=== PATIENT | male | born 1935 | race Caucasian/White ===

== ENCOUNTER 2020-03-29 11:02 | Outpatient (REF) | payer MEDICARE, SELFPAY ==
[2020-03-29 13:47] LABS: MANUAL DIFF FLAG NO
[2020-03-29 14:00] LABS: Basophils Percent Auto 0.5 % (0-2); Eosinophils Absolute Auto 0.1 X10*3/uL (0.0-0.4); Eosinophils Percent Auto 1.4 % (0-4); Hematocrit 37.4 % (42-52); Hemoglobin 12.3 g/dl (14.0-18.0); Imm Gran Abs Auto 0.03 X10*3/uL (0.00-0.03); Imm Gran Pct Auto 0.3 % (0.0-0.4); Mean Corpuscular HGB Conc 32.9 g/dl (31.0-36.0); Mean Corpuscular Hemoglobin 30.6 pg (27.0-33.0); Mean Platelet Volume 10.9 fL (9.4-12.4); Monocytes Absolute Auto 0.7 X10*3/uL (0.1-1.2); Monocytes Percent Auto 7.6 % (2-11); Neutrophils Absolute Auto 6.8 X10*3/uL (2.0-8.3); Neutrophils Percent Auto 78.2 % (45-73); Platelet Count 294 X10*3/uL (160-400); Red Blood Count 4.02 X10*6/uL (4.60-5.80); Red Cell Distribution Width 13.9 % (11.0-16.0); White Blood Count 8.7 X10*3/uL (4.8-10.8)
[2020-03-29 14:15] LABS: Alanine Aminotransferase 10 U/L (0-40); Albumin Level 3.8 g/dL (3.5-5.0); Alkaline Phosphatase 69 U/L (39-117); Anion Gap 12 (12-20); Aspartate Amino Transferase 19 U/L (5-37); Bilirubin Total 0.4 mg/dL (0.0-1.0); Blood Urea Nitrogen 25 mg/dL (9-16); Calcium 8.8 mg/dL (8.4-10.2); Carbon Dioxide 29 mmol/L (22-29); Chloride 101 mmol/L (96-108); Estimated Glomerular Filt Rate 45; Glucose Random 102 mg/dL (60-115); Potassium 4.1 mmol/l (3.3-5.1); Sodium 138 mmol/L (135-145); Total Protein 6.2 g/dL (6.5-8.0)
[2020-03-29 14:19] LABS: INTERNATIONAL NORM RATIO 2.2 (0.9-1.1); Prothrombin Time 25.8 SEC (10.8-13.0)
== END 2020-03-29 11:03 | disposition home or self-care (01) ==
LOC: HO.10HDL 11:02
PROVIDERS: Visit Provider Internal Medicine
DX: J44.9 Chronic obstructive pulmonary disease, unspecified (principal); I50.9 Heart failure, unspecified; N18.9 Chronic kidney disease, unspecified; D63.1 Anemia in chronic kidney disease; I48.0 Paroxysmal atrial fibrillation
CPT/HCPCS: 36415; 80053; 85025; 85610

== ENCOUNTER 2020-04-20 15:09 | Outpatient (REF) | payer MEDICARE, SELFPAY | END 2020-04-20 15:10 | disposition home or self-care (01) | LOC: HO.LNP 15:09 | PROVIDERS: Visit Provider Internal Medicine | DX: Z20.828 Contact with and (suspected) exposure to other viral communicable diseases (principal) | CPT/HCPCS: U0003 ==

== ENCOUNTER 2020-05-10 10:50 | Outpatient (REF) | payer MEDICARE, SELFPAY ==
[2020-05-10 14:10] LABS: INTERNATIONAL NORM RATIO 2.8 (0.9-1.1); Prothrombin Time 33.4 SEC (10.8-13.0)
[2020-05-10 14:34] LABS: Alanine Aminotransferase 9 U/L (0-40); Albumin Level 3.7 g/dL (3.5-5.0); Alkaline Phosphatase 70 U/L (39-117); Anion Gap 11 (12-20); Aspartate Amino Transferase 17 U/L (5-37); Bilirubin Total 0.6 mg/dL (0.0-1.0); Blood Urea Nitrogen 37 mg/dL (9-16); Calcium 8.4 mg/dL (8.4-10.2); Carbon Dioxide 29 mmol/L (22-29); Chloride 102 mmol/L (96-108); Estimated Glomerular Filt Rate 43; Glucose Random 118 mg/dL (60-115); Potassium 3.5 mmol/l (3.3-5.1); Sodium 138 mmol/L (135-145); Total Protein 6.4 g/dL (6.5-8.0)
== END 2020-05-10 10:51 | disposition home or self-care (01) ==
LOC: HO.10HDL 10:50
PROVIDERS: Visit Provider Internal Medicine
DX: J44.9 Chronic obstructive pulmonary disease, unspecified (principal); N18.9 Chronic kidney disease, unspecified; I50.9 Heart failure, unspecified
CPT/HCPCS: 36415; 80053; 85610

== ENCOUNTER → 2020-07-16 12:18 | Outpatient (BNVA) | payer MEDICARE, SELFPAY | PROVIDERS: PCP Internal Medicine; Visit Provider Internal Medicine | DX: I42.8 Other cardiomyopathies (principal); I48.0 Paroxysmal atrial fibrillation; I35.0 Nonrheumatic aortic (valve) stenosis; I10 Essential (primary) hypertension; I44.7 Left bundle-branch block, unspecified | CPT/HCPCS: 93005; 99212 ==

== ENCOUNTER 2020-08-30 11:05 | Outpatient (REF) | payer MEDICARE, SELFPAY ==
[2020-08-30 13:49] LABS: MANUAL DIFF FLAG NO
[2020-08-30 13:52] LABS: Basophils Percent Auto 0.4 % (0-2); Eosinophils Absolute Auto 0.2 X10*3/uL (0.0-0.4); Eosinophils Percent Auto 1.7 % (0-4); Hematocrit 37.3 % (42-52); Imm Gran Abs Auto 0.04 X10*3/uL (0.00-0.03); Imm Gran Pct Auto 0.4 % (0.0-0.4); Lymphocytes Absolute Auto 0.8 X10*3/uL (1.2-4.9); Lymphocytes Percent Auto 9.3 % (20-40); Mean Corpuscular HGB Conc 32.2 g/dl (31.0-36.0); Mean Corpuscular Hemoglobin 29.7 pg (27.0-33.0); Mean Corpuscular Volume 92.3 fL (80-98); Mean Platelet Volume 10.8 fL (9.4-12.4); Monocytes Absolute Auto 0.8 X10*3/uL (0.1-1.2); Monocytes Percent Auto 8.5 % (2-11); Neutrophils Absolute Auto 7.2 X10*3/uL (2.0-8.3); Neutrophils Percent Auto 79.7 % (45-73); Platelet Count 238 X10*3/uL (160-400); Red Blood Count 4.04 X10*6/uL (4.60-5.80); Red Cell Distribution Width 14.7 % (11.0-16.0)
[2020-08-30 13:56] LABS: INTERNATIONAL NORM RATIO 2.3 (0.9-1.1); Prothrombin Time 27.6 SEC (10.8-13.0)
[2020-08-30 14:24] LABS: Alanine Aminotransferase 12 U/L (0-40); Alkaline Phosphatase 81 U/L (39-117); Anion Gap 15 (12-20); Aspartate Amino Transferase 21 U/L (5-37); Bilirubin Total 0.5 mg/dL (0.0-1.0); Blood Urea Nitrogen 31 mg/dL (9-16); Calcium 8.5 mg/dL (8.4-10.2); Carbon Dioxide 28 mmol/L (22-29); Chloride 102 mmol/L (96-108); Estimated Glomerular Filt Rate 47; Glucose Random 82 mg/dL (60-115); Potassium 4.2 mmol/L (3.3-5.1); Sodium 141 mmol/L (135-145); Total Protein 6.6 g/dL (6.5-8.0)
[2020-08-30 14:45] LABS: Free T4 (Free Thyroxine) 1.13 ng/dL (0.71-1.85); Thyroid Stimulating Hormone 2.51 uIU/mL (0.32-4.0)
== END 2020-08-30 11:06 | disposition home or self-care (01) ==
LOC: HO.10HDL 11:05
PROVIDERS: Visit Provider Internal Medicine
DX: J44.9 Chronic obstructive pulmonary disease, unspecified (principal); E03.9 Hypothyroidism, unspecified; I48.0 Paroxysmal atrial fibrillation; N18.9 Chronic kidney disease, unspecified; I50.9 Heart failure, unspecified
CPT/HCPCS: 36415; 80053; 84439; 84443; 85025; 85610

== ENCOUNTER 2020-11-30 10:49 | Outpatient (REF) | payer MEDICARE, SELFPAY ==
[2020-11-30 14:00] LABS: MANUAL DIFF FLAG NO
[2020-11-30 14:17] LABS: Basophils Absolute Auto 0.1 X10*3/uL (0.0-0.2); Basophils Percent Auto 0.6 % (0-2); Eosinophils Absolute Auto 0.2 X10*3/uL (0.0-0.4); Eosinophils Percent Auto 2.7 % (0-4); Hematocrit 39.1 % (42-52); Hemoglobin 12.5 g/dl (14.0-18.0); Imm Gran Abs Auto 0.03 X10*3/uL (0.00-0.03); Imm Gran Pct Auto 0.4 % (0.0-0.4); Lymphocytes Absolute Auto 0.9 X10*3/uL (1.2-4.9); Lymphocytes Percent Auto 11.3 % (20-40); Mean Corpuscular Hemoglobin 28.7 pg (27.0-33.0); Mean Corpuscular Volume 89.7 fL (80-98); Mean Platelet Volume 11.1 fL (9.4-12.4); Monocytes Absolute Auto 0.7 X10*3/uL (0.1-1.2); Platelet Count 263 X10*3/uL (160-400); Red Blood Count 4.36 X10*6/uL (4.60-5.80); Red Cell Distribution Width 14.4 % (11.0-16.0); White Blood Count 7.9 X10*3/uL (4.8-10.8)
[2020-11-30 14:19] LABS: INTERNATIONAL NORM RATIO 2.6 (0.9-1.1); Prothrombin Time 31.2 SEC (10.8-13.0)
[2020-11-30 14:43] LABS: Alanine Aminotransferase 9 U/L (0-40); Alkaline Phosphatase 87 U/L (39-117); Anion Gap 14 (12-20); Aspartate Amino Transferase 20 U/L (5-37); Bilirubin Total 0.3 mg/dL (0.0-1.0); Blood Urea Nitrogen 25 mg/dL (9-16); Calcium 8.9 mg/dL (8.4-10.2); Carbon Dioxide 27 mmol/L (22-29); Chloride 102 mmol/L (96-108); Estimated Glomerular Filt Rate 49; Glucose Random 104 mg/dL (60-115); Iron 32 mcg/dL (45-160); Percent Iron Saturation 9 % (15-50); Potassium 3.9 mmol/L (3.3-5.1); Sodium 139 mmol/L (135-145); Total Iron Binding Capacity 361 mcg/dL (228-428); Total Protein 6.7 g/dL (6.5-8.0); Unsaturated Iron Binding 329 ug/dL
== END 2020-11-30 10:50 | disposition home or self-care (01) ==
LOC: HO.HMGCLDS 10:49
PROVIDERS: PCP Internal Medicine; Visit Provider Internal Medicine
DX: J44.9 Chronic obstructive pulmonary disease, unspecified (principal); I50.9 Heart failure, unspecified; N18.9 Chronic kidney disease, unspecified; I48.0 Paroxysmal atrial fibrillation; D64.9 Anemia, unspecified
CPT/HCPCS: 36415; 80053; 83540; 85025; 85610

== ENCOUNTER → 2021-01-07 10:16 | Outpatient (REF) | payer MEDICARE, SELFPAY ==
--- NOTE | 2021-01-07 10:20 | CA_ITS ---
Transthoracic Echocardiogram Patient (Last, First, Middle): Antoine Hernandez L Gender: Male Date of : 1935 Age: 85 Procedure Date: 01/07/2021 Procedure Type: Transthoracic Echocardiogram Location: OP Height: 172.72 cm Weight: 68.95 kg BSA: 1.82 m2 Heart Rate: bpm BP: 122 / 68 [address] Research Engineer: Referring MD: Kleber Green MD Symptoms: I42.8 - Other cardiomyopathies Study Quality: Technically Difficult ECG Rhythm: Atrial Fibrillation Conclusions: - LVEF difficult to assess. Possibly 45-50%. - There is mildly decreased right ventricular systolic function. - Likely no more than [id number] aortic stenosis Findings Left Ventricle Normal left ventricular cavity size. There is mildly increased left ventricular wall thickness. Regional wall motion abnormalities can not be excluded due to suboptimal endocardial definition. E/E prime ratio is >15, consistent with elevated filling pressures. Evidence suggests grade I (mild) diastolic dysfunction. LVEF difficult to assess. Possibly 45-50%. Right Ventricle The right ventricle was not well visualized. Normal right ventricular cavity size. There is mildly decreased right ventricular systolic function. Atria The left atrium is normal in size. The right atrium is normal in size. Aortic Valve The aortic valve was not well visualized. The peak aortic velocity is 1.84 m/s with a calculated peak gradient of 14 mmHg. The mean gradient is 8 mmHg. The aortic valve area is 1.04 cm2. There is trace (trivial) aortic valve regurgitation. Discrepancy between gradients and valve area. Likely no more than [id number] aortic stenosis Mitral Valve There is mild mitral annular calcification. There is trace mitral valve regurgitation. There is no mitral valve stenosis. Pulmonic Valve The pulmonic valve was not well visualized. Tricuspid Valve Normal tricuspid valve structure. There is mild tricuspid valve regurgitation. The pulmonary artery systolic pressure is normal. Great Vessels The aortic annulus is normal in size. Venous The inferior vena cava is normal in size and collapses greater than 50% with inspiration. Pericardium/Pleural There is no evidence of pericardial effusion. Prior Study Comparison Changes noted compared to prior study dated: 11/14/2019. Possible improvement in LVEF, but due to study quality, difficult to compare. Measurements 2D Linear Measurements IVSd: 1.04 0.6-0.9/0.6-1.0 cm LVIDd: 4.43 3.9-5.3/4.2-5.9 cm LVIDd Index: 2.43 2.4-3.2/2.2-3.1 cm/m2 LVIDs: 3.25 2.0-3.6 cm LVPWd: 1.06 0.7-1.1 cm Ao Root: 3.30 2.1-3.5 cm LA Diam: 3.80 2.7-3.8/3.0-4.0 cm LAIDs Index: 2.09 1.5-2.3 cm/m2 LV Mass: 199.17 67-162/88-224 g LV Mass Index: 109.43 43-95/49-115 g/m2 LVOT Diam: 2.10 3.0+(-)1.3 cm Mitral Valve MV Pk E: 0.61 MV PK A: 0.81 MV Decel Time: 160.00 E/A: 0.80 E'Lateral: 4.24 E'Medial: 4.03 E/E' Med: 15.10 E/E' Lat: 14.30 PHT: 47.00 MVA PHT: 4.68 Decel Kay: 3.81 Aortic Valve AoV Pk Joseph: 1.84 AoV Mn Joseph: 1.38 AoV VTI: 0.39 AoV Pk Grad: 14.00 Aov Mn Grad: 8.00 JOSEPHINE Cont.VTI: 1.04 LVOT LVOT Pk Joseph: 0.57 LVOT Mn Joseph: 0.41 LVOT VTI: 0.12 LVOT Pk Grad: 1.00 LVOT Mn Grad: 1.00 LVOT Diam: 2.10 LVOT Area: 3.46 Diastolic Function MV Pk E: 0.61 MV Pk A: 0.81 E/A: 0.80 E'Medial: 4.03 E/E' Med: 15.10 E' Laterial: 4.24 E/E' Lat: 14.30 Right Ventricle TAPSE (mm): 1.70 TVS' Joseph: 10.80 Tricuspid Valve TR Pk Joseph: 2.68 TR Pk Grad: 29.00 RA Press: 3.00 RVSP: 32.00 Great Vessels Aorta Ao Root-2D: 3.30 2.0-3.7 cm Pulmonary Valve PV Pk Joseph: 0.91 Peak PV Grad: 3.00 Updated in Other Vendor System with Status of Final Kleber Green MD electronically signed on 01/07/2021 12:46:41 PM with status of Final
== END ==
LOC: HO.CARD 10:16
PROVIDERS: PCP Internal Medicine; Visit Provider Internal Medicine
DX: I42.8 Other cardiomyopathies (principal)
CPT/HCPCS: 93306

== ENCOUNTER → 2021-01-14 12:40 | Outpatient (BNVA) | payer MEDICARE, SELFPAY | PROVIDERS: PCP Internal Medicine; Referring Provider Internal Medicine; Visit Provider Internal Medicine | DX: I42.8 Other cardiomyopathies (principal); I48.0 Paroxysmal atrial fibrillation; I35.0 Nonrheumatic aortic (valve) stenosis; I44.7 Left bundle-branch block, unspecified; I10 Essential (primary) hypertension | CPT/HCPCS: 93005; 99212 ==

== ENCOUNTER 2021-01-17 14:17 | Outpatient (REF) | payer MEDICARE, SELFPAY ==
--- NOTE | ~2021-01-17 | CT_ITS ---
EXAMINATION: CT CHEST WITHOUT CONTRAST CLINICAL INFORMATION: Interstitial pulmonary disease. COMPARISON: Multiple priors, most recent CT chest dated 08/11/2019. TECHNIQUE: Multidetector volumetric CT imaging of the chest was done. Axial MIP volume rendering provided. Sagittal and coronal reformatted images were obtained. This CT examination was performed using dose optimization techniques as appropriate, variously including the following: *Automated exposure control *Adjustment of mA and/or kV according to patient size (this includes techniques or standardized protocols for targeted exams where dose is matched to indication/reason for exam; i.e. extremities or head) *Use of iterative reconstruction technique DLP: 134 mGy-cm FINDINGS: TEXTILE WORKER: Unremarkable. LUNGS: Emphysematous changes are redemonstrated. Significant interval decrease in previously seen diffuse interstitial prominence and bronchial wall thickening when compared to the prior examination. Redemonstration of an anterior right upper lobe calcified granuloma, unchanged. Calcified subpleural nodule within the anterior left upper lobe. No new noncalcified pulmonary nodule, mass, or confluent airspace consolidation. The central airways are patent. MEDIASTINUM: No cardiomegaly. Previously seen pericardial effusion has nearly completely resolved. No aortic dilatation. Scattered atherosclerotic calcifications. No superior mediastinal or hilar lymphadenopathy. PLEURA: There is no pleural effusion. No pleural mass or thickening. AXILLA: No lymphadenopathy. UPPER ABDOMEN: Unremarkable. OSSEOUS STRUCTURES: Unremarkable. CT/CT chest wo con IMPRESSION: 1. Stable emphysematous changes with significant interval decrease and near-complete resolution of previously seen diffuse interstitial prominence and bronchial wall thickening. 2. No new pulmonary nodule, mass, or airspace consolidation. 3. No lymphadenopathy.
== END 2021-01-17 14:18 | disposition home or self-care (01) ==
LOC: HO.CT 14:17
PROVIDERS: PCP Internal Medicine; Visit Provider Internal Medicine
DX: J84.9 Interstitial pulmonary disease, unspecified (principal); J98.4 Other disorders of lung; T46.2X5A Adverse effect of other antidysrhythmic drugs, initial encounter
CPT/HCPCS: 71250

== ENCOUNTER → 2021-01-23 13:21 | Outpatient (BNVA) | payer MEDICARE, SELFPAY | PROVIDERS: PCP Internal Medicine; Visit Provider Internal Medicine | DX: J44.9 Chronic obstructive pulmonary disease, unspecified (principal); I10 Essential (primary) hypertension; I44.7 Left bundle-branch block, unspecified; I42.8 Other cardiomyopathies; I35.0 Nonrheumatic aortic (valve) stenosis; I48.0 Paroxysmal atrial fibrillation; Z79.899 Other long term (current) drug therapy | CPT/HCPCS: 99212 ==

== ENCOUNTER 2021-02-20 11:26 | Outpatient (REF) | payer MEDICARE, SELFPAY ==
[2021-02-20 13:34] LABS: MANUAL DIFF FLAG NO
[2021-02-20 14:05] LABS: Basophils Absolute Auto 0.1 X10*3/uL (0.0-0.2); Basophils Percent Auto 0.7 % (0-2); Eosinophils Absolute Auto 0.2 X10*3/uL (0.0-0.4); Eosinophils Percent Auto 2.1 % (0-4); Hematocrit 37.9 % (42-52); Hemoglobin 12.3 g/dl (14.0-18.0); Imm Gran Abs Auto 0.03 X10*3/uL (0.00-0.03); Imm Gran Pct Auto 0.3 % (0.0-0.4); Lymphocytes Absolute Auto 0.8 X10*3/uL (1.2-4.9); Lymphocytes Percent Auto 9.2 % (20-40); Mean Corpuscular HGB Conc 32.5 g/dl (31.0-36.0); Mean Corpuscular Hemoglobin 28.9 pg (27.0-33.0); Mean Platelet Volume 10.4 fL (9.4-12.4); Monocytes Absolute Auto 0.9 X10*3/uL (0.1-1.2); Monocytes Percent Auto 9.7 % (2-11); Neutrophils Absolute Auto 7.1 X10*3/uL (2.0-8.3); Platelet Count 217 X10*3/uL (160-400); Red Blood Count 4.26 X10*6/uL (4.60-5.80); Red Cell Distribution Width 15.7 % (11.0-16.0)
[2021-02-20 14:09] LABS: INTERNATIONAL NORM RATIO 2.1 (0.9-1.1); Prothrombin Time 23.7 SEC (9.9-13.0)
[2021-02-20 14:45] LABS: Alanine Aminotransferase 13 U/L (0-40); Alkaline Phosphatase 70 U/L (39-117); Anion Gap 11 (12-20); Aspartate Amino Transferase 22 U/L (5-37); Bilirubin Total 0.7 mg/dL (0.0-1.0); Blood Urea Nitrogen 23 mg/dL (9-16); Calcium 8.8 mg/dL (8.4-10.2); Carbon Dioxide 29 mmol/L (22-29); Chloride 98 mmol/L (96-108); Estimated Glomerular Filt Rate 50; Glucose Random 77 mg/dL (60-115); Potassium 4.4 mmol/L (3.3-5.1); Sodium 134 mmol/L (135-145); Total Protein 6.6 g/dL (6.5-8.0)
[2021-02-20 14:46] LABS: Free T4 (Free Thyroxine) 1.27 ng/dL (0.71-1.85); Thyroid Stimulating Hormone 2.45 uIU/mL (0.32-4.0)
== END 2021-02-20 11:27 | disposition home or self-care (01) ==
LOC: HO.10HDL 11:26
PROVIDERS: Visit Provider Internal Medicine
DX: I50.9 Heart failure, unspecified (principal); J44.9 Chronic obstructive pulmonary disease, unspecified; I25.10 Atherosclerotic heart disease of native coronary artery without angina pectoris; N18.9 Chronic kidney disease, unspecified; E78.5 Hyperlipidemia, unspecified; I48.0 Paroxysmal atrial fibrillation
CPT/HCPCS: 36415; 80053; 84439; 84443; 85025; 85610

== ENCOUNTER 2021-05-22 12:29 | Outpatient (REF) | payer MEDICARE, SELFPAY ==
[2021-05-22 13:52] LABS: MANUAL DIFF FLAG NO
[2021-05-22 14:02] LABS: Basophils Absolute Auto 0.1 X10*3/uL (0.0-0.2); Basophils Percent Auto 0.6 % (0-2); Eosinophils Absolute Auto 0.1 X10*3/uL (0.0-0.4); Eosinophils Percent Auto 1.8 % (0-4); Hematocrit 39.5 % (42.0-52.0); Hemoglobin 12.6 g/dl (14.0-18.0); Imm Gran Abs Auto 0.03 X10*3/uL (0.00-0.03); Imm Gran Pct Auto 0.4 % (0.0-0.4); Lymphocytes Absolute Auto 0.8 X10*3/uL (1.2-4.9); Lymphocytes Percent Auto 9.9 % (20-40); Mean Corpuscular HGB Conc 31.9 g/dl (31.0-36.0); Mean Corpuscular Volume 90.8 fL (80.0-98.0); Mean Platelet Volume 10.9 fL (9.4-12.4); Monocytes Absolute Auto 0.7 X10*3/uL (0.1-1.2); Monocytes Percent Auto 8.8 % (2-11); Neutrophils Absolute Auto 6.2 x10*3/uL (2.0-8.3); Neutrophils Percent Auto 78.5 % (45-73); Platelet Count 208 X10*3/uL (160-400); Red Blood Count 4.35 X10*6/uL (4.60-5.80); Red Cell Distribution Width 14.6 % (11.0-16.0); White Blood Count 7.9 X10*3/uL (4.8-10.8)
[2021-05-22 14:12] LABS: INTERNATIONAL NORM RATIO 2.2 (0.9-1.1); Prothrombin Time 25.9 SEC (9.9-13.0)
[2021-05-22 14:27] LABS: Alanine Aminotransferase 10 U/L (0-40); Alkaline Phosphatase 71 U/L (39-117); Anion Gap 12 (12-20); Aspartate Amino Transferase 20 U/L (5-37); Bilirubin Total 0.4 mg/dL (0.0-1.0); Blood Urea Nitrogen 28 mg/dL (9-16); Calcium 9.1 mg/dL (8.4-10.2); Carbon Dioxide 30 mmol/L (22-29); Chloride 102 mmol/L (96-108); Estimated Glomerular Filt Rate 46; Glucose Random 75 mg/dL (60-115); Potassium 4.6 mmol/L (3.3-5.1); Sodium 139 mmol/L (135-145); Total Protein 6.7 g/dL (6.5-8.0)
== END 2021-05-22 12:30 | disposition home or self-care (01) ==
LOC: HO.10HDL 12:29
PROVIDERS: Visit Provider Internal Medicine
DX: J44.9 Chronic obstructive pulmonary disease, unspecified (principal); I50.9 Heart failure, unspecified; N18.9 Chronic kidney disease, unspecified; I48.0 Paroxysmal atrial fibrillation; Z79.01 Long term (current) use of anticoagulants
CPT/HCPCS: 36415; 80053; 85025; 85610

== ENCOUNTER → 2021-07-23 12:25 | Outpatient (BNVA) | payer MEDICARE, SELFPAY | PROVIDERS: PCP Internal Medicine; Referring Provider Internal Medicine; Visit Provider Internal Medicine | DX: I48.0 Paroxysmal atrial fibrillation (principal); I42.8 Other cardiomyopathies; I35.0 Nonrheumatic aortic (valve) stenosis; I10 Essential (primary) hypertension; I44.7 Left bundle-branch block, unspecified; Z79.01 Long term (current) use of anticoagulants; Z79.899 Other long term (current) drug therapy | CPT/HCPCS: 93005; 99212 ==

== ENCOUNTER → 2021-07-30 13:07 | Outpatient (BNVA) | payer MEDICARE, SELFPAY | PROVIDERS: PCP Internal Medicine; Visit Provider Internal Medicine | DX: J44.9 Chronic obstructive pulmonary disease, unspecified (principal) | CPT/HCPCS: 99212 ==

== ENCOUNTER 2021-08-20 10:42 | Outpatient (REF) | payer MEDICARE, SELFPAY ==
[2021-08-20 11:09] LABS: MANUAL DIFF FLAG NO
[2021-08-20 11:32] LABS: INTERNATIONAL NORM RATIO 1.9 (0.9-1.1)
[2021-08-20 11:36] LABS: Basophils Percent Auto 0.5 % (0-2); Eosinophils Absolute Auto 0.1 X10*3/uL (0.0-0.4); Eosinophils Percent Auto 1.7 % (0-4); Hematocrit 39.3 % (42.0-52.0); Hemoglobin 12.1 g/dl (14.0-18.0); Imm Gran Abs Auto 0.03 X10*3/uL (0.00-0.03); Imm Gran Pct Auto 0.4 % (0.0-0.4); Lymphocytes Absolute Auto 0.7 X10*3/uL (1.2-4.9); Lymphocytes Percent Auto 8.4 % (20-40); Mean Corpuscular HGB Conc 30.8 g/dl (31.0-36.0); Mean Corpuscular Hemoglobin 28.4 pg (27.0-33.0); Mean Corpuscular Volume 92.3 fL (80.0-98.0); Monocytes Absolute Auto 0.7 X10*3/uL (0.1-1.2); Monocytes Percent Auto 8.2 % (2-11); Neutrophils Absolute Auto 6.8 x10*3/uL (2.0-8.3); Neutrophils Percent Auto 80.8 % (45-73); Platelet Count 190 X10*3/uL (160-400); Red Blood Count 4.26 X10*6/uL (4.60-5.80); White Blood Count 8.4 X10*3/uL (4.8-10.8)
[2021-08-20 12:00] LABS: Alanine Aminotransferase 9 U/L (0-40); Albumin Level 3.8 g/dL (3.5-5.0); Alkaline Phosphatase 69 U/L (39-117); Anion Gap 11 (12-20); Aspartate Amino Transferase 18 U/L (5-37); Bilirubin Total 0.3 mg/dL (0.0-1.0); Blood Urea Nitrogen 30 mg/dL (9-16); Calcium 8.9 mg/dL (8.4-10.2); Carbon Dioxide 30 mmol/L (22-29); Chloride 100 mmol/L (96-108); Estimated Glomerular Filt Rate 47; Glucose Random 142 mg/dL (60-115); Iron 42 mcg/dL (45-160); Percent Iron Saturation 11 % (15-50); Potassium 4.1 mmol/L (3.3-5.1); Sodium 137 mmol/L (135-145); Total Iron Binding Capacity 384 mcg/dL (228-428); Total Protein 6.6 g/dL (6.5-8.0); Unsaturated Iron Binding 342 ug/dL
[2021-08-20 12:18] LABS: TSH reflex Free T4 1.71 uIU/mL (0.32-4.0)
== END 2021-08-20 10:43 | disposition home or self-care (01) ==
LOC: HO.LAB 10:42
PROVIDERS: Absent Provider Internal Medicine; PCP Internal Medicine; Visit Provider Internal Medicine
DX: I42.8 Other cardiomyopathies (principal); I48.0 Paroxysmal atrial fibrillation; D64.9 Anemia, unspecified; J44.9 Chronic obstructive pulmonary disease, unspecified; I50.9 Heart failure, unspecified; N18.9 Chronic kidney disease, unspecified
CPT/HCPCS: 36415; 80053; 83540; 84443; 85025; 85610

== ENCOUNTER 2021-09-19 11:13 | Inpatient (IN) | payer MEDICARE, SELFPAY ==
[2021-09-19] VITALS (8 sets, daily range): BP systolic 125–144; BP diastolic 60–70; PULSE 71–90; RESP 13–36; TEMP 36.2–37.2; O2SAT 87–95; BMI 23.1
--- NOTE | ~2021-09-19 | XR_ITS ---
EXAMINATION: XR CHEST CLINICAL INFORMATION: SOB, cough and difficulty breathing COMPARISON: CT chest 01/17/2021. TECHNIQUE: 2 views of the chest were obtained. FINDINGS: The lungs are well-expanded and clear of acute pneumonic process. There is increased bilateral interstitial markings in both lower lobes likely chronic changes. The heart size and pulmonary vascularity is normal. No gross bony abnormality seen. XR/XR chest 2V IMPRESSION: Mild increased bilateral interstitial markings especially lower lobes likely chronic changes. No acute pneumonic consolidation or pleural effusion seen. Previous CT chest reveals bilateral posterior pleural thickening and mild interstitial changes 01/17/2021.
--- NOTE | 2021-09-19 11:25 | ECG_ITS ---
Test Reason : SOB Blood Pressure : / mmHG Vent. Rate : 083 BPM Atrial Rate : 083 BPM P-R Int : 194 ms QRS Dur : 144 ms QT Int : 402 ms P-R-T Axes : -09 -63 061 degrees QTc Int : 472 ms Normal sinus rhythm Left axis deviation Left bundle branch block Abnormal ECG When compared with ECG of 11-AUG-2019 01:47, No significant changes seen Referred By: Yakelin Kiran Electronically Signed By:Kentrell Oropeza
--- NOTE | 2021-09-19 11:36 | ED_ITS ---
HPI - URI/Sore Throat General Chief Complaint: Upper Respiratory Symptoms Stated Complaint: short of breathe , high fever Time Seen by Provider: 09/19/21 11:21 Source: patient and family Mode of arrival: wheelchair Limitations: no limitations History of Present Illness HPI Narrative: 86 yo male with past medical history of COPD, LBBB, HTN, aortic valve stenosis, AFIB on coumadun, NICM here complaints of productive cough w/ yellow sputum, rhinorrhea x 1 week, worsening last 24 hrs with diff breathing, fever up to 101. Patient received Pfizer vaccine x3. Patient received flu vaccine. Patient denies chest pain, leg swelling or leg pain, vomiting, diarrhea. No sick contacts or recent travel. Related Data Home Medications Medication Instructions Recorded Confirmed allopurinol 300 mg tablet 300 mg PO DAILY 07/16/20 09/19/21 bumetanide 2 mg tablet 2 mg PO BID tab 07/16/20 09/19/21 ipratropium 0.5 mg-albuterol 3 mg 3 ml INHALATION QID PRN 07/16/20 09/19/21 (2.5 mg base)/3 mL nebulization soln levothyroxine 75 mcg tablet 75 mcg PO DAILY 07/16/20 09/19/21 mirtazapine 15 mg tablet 15 mg PO BEDTIME 07/16/20 09/19/21 potassium chloride 20 mEq 20 meq PO DAILY 07/16/20 09/19/21 tablet,extended release(part/cryst) simvastatin 40 mg tablet 40 mg PO BEDTIME 07/16/20 09/19/21 warfarin 2.5 mg tablet 2.5 mg PO BEDTIME 07/16/20 09/19/21 omeprazole 40 mg capsule,delayed 40 mg PO BID cap 01/23/21 09/19/21 release albuterol sulfate 2.5 mg INHALATION Q6H PRN 09/19/21 09/19/21 amiodarone 100 mg tablet 1 tab PO DAILY 09/19/21 09/19/21 magnesium oxide 400 mg PO BID 09/19/21 09/19/21 Previous Rx's Medication Instructions Recorded Symbicort 160 mcg-4.5 2 puff PO BID #10.2 g NS 09/17/21 mcg/actuation HFA aerosol inhaler (budesonide-formoterol) Allergies Allergy/AdvReac Type Severity Reaction Status Date / Time No Known Allergies Allergy Verified 07/30/21 13:31 Review of Systems 2 Review of Systems: Yes all other systems are reviewed and are negative Constitutional: Constitutional: Reports no additional constitutional complaints, Denies body ache(s), Denies chills, Reports fever(s), Denies head ache(s) and Denies weakness Eyes: Eyes: Reports no additional eye complaints and Denies change in vision ENT: Reports system reviewed and no additional complaints, except as documented, Denies dizziness, Denies headache(s), Denies nasal congestion, Reports nasal discharge and Denies neck pain Cardiovascular: Cardiovascular: Reports no additional cardiovascular complaints, Denies chest pain, Denies leg edema and Reports dyspnea Respiratory: Respiratory: Reports no additional respiratory complaints, Repor ts cough and Reports dyspnea Gastrointestinal: Gastrointestinal: Reports no additional gastrointestinal complaints, Denies abdominal pain, Denies diarrhea, Denies nausea and Denies vomiting Genitourinary: Genitourinary: Denies urinary incontinence Musculoskeletal: Musculoskeletal: Reports no additional musculoskeletal complaints, Denies back pain, Denies arthralgias, Denies joint swelling, Denies neck pain, Denies numbness and Denies tingling Integumentary/Breasts: Skin/Breast: Reports system reviewed and no additional complaints, except as docu and Denies rash Neurologic: Reports system reviewed and no additional complaints, except as documented, Denies Abnormal speech present, Denies dizziness, Denies headache(s), Denies numbness, Denies tingling and Denies weakness PMFSH Past Medical History Attestation statement: The following information was validated with the patient. Source: old records reviewed and nursing notes reviewed Medical History COPD (chronic obstructive pulmonary disease) Esophageal dysphagia Essential hypertension History of hiatal hernia Left bundle branch block NICM (nonischemic cardiomyopathy) Nonrheumatic aortic (valve) stenosis Paroxysmal atrial fibrillation Surgical History History of inguinal hernia repair Family History Family History Father No problems noted. Mother No problems noted. Social History Social History (Updated 09/19/21 @ 16:13 by CHEL Swartz) Alcohol intake: current Alcohol intake frequency: 0-2 drinks per day Patient Tobacco Use Status: Former Tobacco user Advance Directives: No Advance Directives Information Provided: No Physical Exam Vital Signs: Vital Signs: Last Vital Signs Temp 98.6 F 09/19/21 14:26 Pulse 82 09/19/21 14:26 Resp 13 09/19/21 14:26 BP 130/61 09/19/21 14:26 Pulse Ox 91 L 09/19/21 14:26 BMI result Body Mass Index 23.1 Const: General: cooperative, healthy appearing, comfortable and no acute distress Orientation/consciousness: patient oriented x3 Limitations: no limitations HEENT: Head: Yes normal to inspection Ears: hearing grossly normal bilaterally General nose exam: Normal external nose present Face and sinus: Yes normal facial exam Mouth: Normal oral and palatal mucosa present Throat: Yes posterior oropharynx normal Eyes: General: appearance normal, both eyes and all related structures Pupils: Equal, round and reactive pupils present Neck: Neck: Yes normal visual inspection Chest: Chest palpation & inspection: normal inspection of the chest Resp: Other: Tachypnea, rate of 30 Coarse breath sounds throughout, mild expiratory wheeze Cardio: Rate: regular rate Rhythm: regular rhythm Peripheral pulses: Peripheral pulses 2+ throughout GI: Inspection: Yes normal to inspection Palpation (GI): Soft to palpation and nontender Auscultation: normal bowel sounds Back/Spine/Pelvis: Thoracic/Lumbar Spine: thoracic and lumbar spine normal to inspection Skin: General skin exam: no rashes or lesions noted Neuro: General: patient oriented x3, no focal motor deficits and normal se nsation to monofilament Cranial nerves: Yes Equal, round and reactive pupils present Cognition (Neuro): normal cognition Speech: No Abnormal speech present Gait exam (Neuro): Normal gait present Motor exam (neuro): 5/5 motor strength present throughout Extrem: General: Yes normal to inspection, Yes no pedal edema and Yes no calf tenderness Course Course Course Narrative: 86-year-old male with history of COPD, AFib on Coumadin a year with reports cough, rhinorrhea for the last week worsening over the last 24 hours with difficulty breathing and fever. On arrival the patient is tachypneic with a rate of 30. He has coarse breath sounds and expiratory wheezing throughout. His oxygen saturation is 87% on room air. Patient placed on nasal cannula with improvement of oxygen saturation. Will need labs including blood cultures and lactic acid, COVID in flu testing, chest x-ray, EKG. At this time infection suspected. Antibiotics ordered. Will give DuoNeb, Solu-Medrol additional Reevaluation(s) Reevaluation #1: Labs show leukocytosis 15,000, elevated lactic acid. Flu and COVID testing are negative. Chest x-ray shows mildly increased bilateral interstitial markings. Consider PNA. Will require admit d/t hypoxia Medicine accepted. Time: 14:15 MDM - URI/Sore Throat MDM Narrative Medical decision making narrative: Pneumonia, viral syndrome, COPD exacerbation Medical Records Attestation: I reviewed the patient's medical records. Lab Data Attestation: I reviewed the patient's lab results. Result diagrams: 09/19/21 11:41 09/19/21 11:41 Labs: Lab Results 09/19/21 09/19/21 09/19/21 Range/Units 11:41 11:41 11:41 WBC 15.9 H (4.8-10.8) X10*3/uL RBC 4.45 L (4.60-5.80) X10*6/uL Hgb 12.9 L (14.0-18.0) g/dl Hct 39.9 L (42.0-52.0) % MCV 89.7 (80.0-98.0) fL MCH 29.0 (27.0-33.0) pg MCHC 32.3 (31.0-36.0) g/dl RDW 15.2 (11.0-16.0) % Plt Count 196 (160-400) X10*3/uL MPV 10.7 (9.4-12.4) fL Immature Gran % (Auto) 0.6 H (0.0-0.4) % Neut % (Auto) 89.9 H (45-73) % Lymph % (Auto) 1.8 L (20-40) % Shelby % (Auto) 7.4 (2-11) % Eos % (Auto) 0.1 (0-4) % Baso % (Auto) 0.2 (0-2) % Lymph # (Auto) 0.3 L (1.2-4.9) X10*3/uL Shelby # (Auto) 1.2 (0.1-1.2) X10*3/uL Eos # (Auto) 0.0 (0.0-0.4) X10*3/uL Baso # (Auto) 0.0 (0.0-0.2) X10*3/uL Abs Immat Gran (auto) 0.10 H (0.00-0.03) X10*3/uL Absolute Neuts (auto) 14.3 H (2.0-8.3) x10*3/uL Absolute Nucleated RBC 0.000 (0.0-0.012) X10*3/uL Nucleated RBC % (auto) 0.0 (0.0-0.2) /100WBC PT 24.3 H (9.9-13.0) SEC INR 2.1 H (0.9-1.1) Sodium 134 L (135-145) mmol/L Potassium 4.3 (3.3-5.1) mmol/L Chloride 96 (96-108) mmol/L Carbon Dioxide 25 (22-29) mmol/L Anion Gap 17 (12-20) BUN 29 H (9-16) mg/dL Creatinine 1.59 H (0.5-1.4) mg/dL Estim Creat Clear Calc 32.8 Estimated GFR 42 Random Glucose 101 (60-115) mg/dL Lactic Acid (0.5-2.0) mmol/L Lactic Acid F/U @ 2Hr (0.5-2.0) mmol/L Calcium 8.8 (8.4-10.2) mg/dL Magnesium 2.2 (1.6-2.6) mg/dL Total Bilirubin 0.8 (0.0-1.0) mg/dL Direct Bilirubin 0.3 (0.0-0.5) mg/dL AST 21 (5-37) U/L ALT 12 (0-40) U/L Alkaline Phosphatase 71 (39-117) U/L Troponin I High Sens (<3.5-35.0) ng/L B-Natriuretic Peptide (<100) pg/mL Total Protein 6.9 (6.5-8.0) g/dL Albumin 3.9 (3.5-5.0) g/dL Urine Color Urine Appearance Urine pH (5.0-8.0) Ur Specific [place] (1.005-1.025) Urine Protein (NEG-TRACE) MG/DL Urine Glucose (UA) (NEG) MG/DL Urine Ketones (NEG) MG/DL Urine Blood (NEG) Urine Nitrite (NEG) Ur Leukocyte Esterase (NEG) Urine RBC (0) /HPF Urine WBC (0-4) /HPF Ur Squamous Epith Cells /LPF Urine Bacteria /LPF Hyaline Casts /LPF COVID-19 (JAYJAY) (Negative) COVID-19 Clin Com Influenza Type A (JUAN) (Negative) Influenza Type B (JUAN) (Negative) Influenza A & B Note 09/19/21 09/19/21 09/19/21 Range/Units 11:41 11:41 11:41 WBC (4.8-10.8) X10*3/uL RBC (4.60-5.80) X10*6/uL Hgb (14.0-18.0) g/dl Hct (42.0-52.0) % MCV (80.0-98.0) fL MCH (27.0-33.0) pg MCHC (31.0-36.0) g/dl RDW (11.0-16.0) % Plt Count (160-400) X10*3/uL MPV (9.4-12.4) fL Immature Gran % (Auto) (0.0-0.4) % Neut % (Auto) (45-73) % Lymph % (Auto) (20-40) % [place] % (Auto) (2-11) % Eos % (Auto) (0-4) % Baso % (Auto) (0-2) % Lymph # (Auto) (1.2-4.9) X10*3/uL [place] # (Auto) (0.1-1.2) X10*3/uL Eos # (Auto) (0.0-0.4) X10*3/uL Baso # (Auto) (0.0-0.2) X10*3/uL Abs Immat Gran (auto) (0.00-0.03) X10*3/uL Absolute Neuts (auto) (2.0-8.3) x10*3/uL Absolute Nucleated RBC (0.0-0.012) X10*3/uL Nucleated RBC % (auto) (0.0-0.2) /100WBC PT (9.9-13.0) SEC INR (0.9-1.1) Sodium (135-145) mmol/L Potassium (3.3-5.1) mmol/L Chloride (96-108) mmol/L Carbon Dioxide (22-29) mmol/L Anion Gap (12-20) BUN (9-16) mg/dL Creatinine (0.5-1.4) mg/dL Estim Creat Clear Calc Estimated GFR Random Glucose (60-115) mg/dL Lactic Acid 3.3 H* (0.5-2.0) mmol/L Lactic Acid F/U @ 2Hr (0.5-2.0) mmol/L Calcium (8.4-10.2) mg/dL Magnesium (1.6-2.6) mg/dL Total Bilirubin (0.0-1.0) mg/dL Direct Bilirubin (0.0-0.5) mg/dL AST (5-37) U/L ALT (0-40) U/L Alkaline Phosphatase (39-117) U/L Troponin I High Sens 15.2 (<3.5-35.0) ng/L B-Natriuretic Peptide 120 H (<100) pg/mL Total Protein (6.5-8.0) g/dL Albumin (3.5-5.0) g/dL Urine Color Urine Appearance Urine pH (5.0-8.0) Ur Specific [place] (1.005-1.025) Urine Protein (NEG-TRACE) MG/DL Urine Glucose (UA) (NEG) MG/DL Urine Ketones (NEG) MG/DL Urine Blood (NEG) Urine Nitrite (NEG) Ur Leukocyte Esterase (NEG) Urine RBC (0) /HPF Urine WBC (0-4) /HPF Ur Squamous Epith Cells /LPF Urine Bacteria /LPF Hyaline Casts /LPF COVID-19 (JAYJAY) (Negative) COVID-19 Clin Com Influenza Type A (JUAN) Negative (Negative) Influenza Type B (JUAN) Negative (Negative) Influenza A & B Note See Note 09/19/21 09/19/21 09/19/21 Range/Units 11:41 11:47 14:26 WBC (4.8-10.8) X10*3/uL RBC (4.60-5.80) X10*6/uL Hgb (14.0-18.0) g/dl Hct (42.0-52.0) % MCV (80.0-98.0) fL MCH (27.0-33.0) pg MCHC (31.0-36.0) g/dl RDW (11.0-16.0) % Plt Count (160-400) X10*3/uL MPV (9.4-12.4) fL Immature Gran % (Auto) (0.0-0.4) % Neut % (Auto) (45-73) % Lymph % (Auto) (20-40) % [place] % (Auto) (2-11) % Eos % (Auto) (0-4) % Baso % (Auto) (0-2) % Lymph # (Auto) (1.2-4.9) X10*3/uL [place] # (Auto) (0.1-1.2) X10*3/uL Eos # (Auto) (0.0-0.4) X10*3/uL Baso # (Auto) (0.0-0.2) X10*3/uL Abs Immat Gran (auto) (0.00-0.03) X10*3/uL Absolute Neuts (auto) (2.0-8.3) x10*3/uL Absolute Nucleated RBC (0.0-0.012) X10*3/uL Nucleated RBC % (auto) (0.0-0.2) /100WBC PT (9.9-13.0) SEC INR (0.9-1.1) Sodium (135-145) mmol/L Potassium (3.3-5.1) mmol/L Chloride (96-108) mmol/L Carbon Dioxide (22-29) mmol/L Anion Gap (12-20) BUN (9-16) mg/dL Creatinine (0.5-1.4) mg/dL Estim Creat Clear Calc Estimated GFR Random Glucose (60-115) mg/dL Lactic Acid (0.5-2.0) mmol/L Lactic Acid F/U @ 2Hr 1.3 (0.5-2.0) mmol/L Calcium (8.4-10.2) mg/dL Magnesium (1.6-2.6) mg/dL Total Bilirubin (0.0-1.0) mg/dL Direct Bilirubin (0.0-0.5) mg/dL AST (5-37) U/L ALT (0-40) U/L Alkaline Phosphatase (39-117) U/L Troponin I High Sens (<3.5-35.0) ng/L B-Natriuretic Peptide (<100) pg/mL Total Protein (6.5-8.0) g/dL Albumin (3.5-5.0) g/dL Urine Color YELLOW Urine Appearance HAZY Urine pH 6.5 (5.0-8.0) Ur Specific [place] 1.010 (1.005-1.025) Urine Protein NEG (NEG-TRACE) MG/DL Urine Glucose (UA) NEG (NEG) MG/DL Urine Ketones NEG (NEG) MG/DL Urine Blood TRACE (NEG) Urine Nitrite NEG (NEG) Ur Leukocyte Esterase NEG (NEG) Urine RBC 0 (0) /HPF Urine WBC 0 (0-4) /HPF Ur Squamous Epith Cells NONE /LPF Urine Bacteria NONE /LPF Hyaline Casts 0-2 /LPF COVID-19 (JAYJAY) Negative (Negative) COVID-19 Clin Com See Note Influenza Type A (JUAN) (Negative) Influenza Type B (JUAN) (Negative) Influenza A & B Note Imaging Data Chest x-ray: Attestation: I personally reviewed and interpreted this imaging study as follows: Radiologist's impression: [address] [address] XRay Report Signed Patient: Antoine Hernandez MR#: [id number] : 1935 Acct:[id number] Age/Sex: 86 / M ADM Date: 09/19/21 Loc: [facility].ED Attending Dr: Ordering Physician: Yakelin Kiran NP Date of Service: 09/19/21 Procedure(s): XR chest 2V Accession Number(s): [id number] cc: Yakelin Kiran NP~ EXAMINATION: XR CHEST CLINICAL INFORMATION: SOB, cough and difficulty breathing COMPARISON: CT chest 01/17/2021. TECHNIQUE: 2 views of the chest were obtained. FINDINGS: The lungs are well-expanded and clear of acute pneumonic process. There is increased bilateral interstitial markings in both lower lobes likely chronic changes. The heart size and pulmonary vascularity is normal. No gross bony abnormality seen. XR/XR chest 2V IMPRESSION: Mild increased bilateral interstitial markings especially lower lobes likely chronic changes. No acute pneumonic consolidation or pleural effusion seen. ? Previous CT chest reveals bilateral posterior pleural thickening and mild interstitial changes 01/17/2021. ECG Data Attestation: I personally reviewed and interpreted this ECG as follows: ECG interpretation date: 09/19/21 ECG interpretation time: 11:47 Interpretation: NSR with rate 83, normal TX, LBBB, normal QT Discharge Plan Discharge Clinical Impression: Acute exacerbation of chronic obstructive pulmonary disease, Acute viral syndrome, Leukocytosis Patient Disposition: Admitted As Inpatient
[2021-09-19 11:50] LABS: MANUAL DIFF FLAG NO
[2021-09-19] MEDS: Albuterol/Iprat 2.5/0.5MG 3 ML AMPUL.NEB INHALE ×2 (11:53→19:11)
--- NOTE | 2021-09-19 11:54 | PHA.MEDREC ---
Pharmacy Consult ? Medication Reconciliation Pharmacy has completed the medication reconciliation. No remarkable issues. Marianna Zamudio, RickD
[2021-09-19 11:55] LABS: Basophils Percent Auto 0.2 % (0-2); Eosinophils Percent Auto 0.1 % (0-4); Hematocrit 39.9 % (42.0-52.0); Hemoglobin 12.9 g/dl (14.0-18.0); Imm Gran Pct Auto 0.6 % (0.0-0.4); Lymphocytes Absolute Auto 0.3 X10*3/uL (1.2-4.9); Lymphocytes Percent Auto 1.8 % (20-40); Mean Corpuscular HGB Conc 32.3 g/dl (31.0-36.0); Mean Corpuscular Volume 89.7 fL (80.0-98.0); Mean Platelet Volume 10.7 fL (9.4-12.4); Monocytes Absolute Auto 1.2 X10*3/uL (0.1-1.2); Monocytes Percent Auto 7.4 % (2-11); Neutrophils Absolute Auto 14.3 x10*3/uL (2.0-8.3); Neutrophils Percent Auto 89.9 % (45-73); Platelet Count 196 X10*3/uL (160-400); Red Blood Count 4.45 X10*6/uL (4.60-5.80); Red Cell Distribution Width 15.2 % (11.0-16.0); White Blood Count 15.9 X10*3/uL (4.8-10.8)
[2021-09-19 12:01] LABS: Appearance Urine HAZY; Color Urine YELLOW; Glucose Urine UA NEG (NEG); Leukocyte Esterase Urine NEG (NEG); Nitrite Urine NEG (NEG); PH 6.5 (5.0-8.0); UACC Culture Trigger NO; Urine Blood TRACE (NEG); Urine Ketones NEG (NEG); Urine Protein NEG (NEG-TRACE)
[2021-09-19 12:01] LABS: INTERNATIONAL NORM RATIO 2.1 (0.9-1.1); Prothrombin Time 24.3 SEC (9.9-13.0)
[2021-09-19 12:08] LABS: COVID-19 Test Negative (Negative)
[2021-09-19 12:10] LABS: IDNOW Serial# 08D9AD1C; Influenza A Negative (Negative); Influenza B2 Negative (Negative)
[2021-09-19] MEDS: methylPREDNISolone Sod Succ 125 MG/2 ML VIAL IVPUSH (12:14)
[2021-09-19] MEDS: cefTRIAXone sodium 1 GM in 0.9 % Sodium Chloride 50 ML IV (12:14)
[2021-09-19 12:15] LABS: Lactic Acid 3.3 mmol/L (0.5-2.0)
[2021-09-19 12:20] LABS: Alanine Aminotransferase 12 U/L (0-40); Albumin Level 3.9 g/dL (3.5-5.0); Alkaline Phosphatase 71 U/L (39-117); Anion Gap 17 (12-20); Aspartate Amino Transferase 21 U/L (5-37); Bilirubin Direct 0.3 mg/dL (0.0-0.5); Bilirubin Total 0.8 mg/dL (0.0-1.0); Blood Urea Nitrogen 29 mg/dL (9-16); Calcium 8.8 mg/dL (8.4-10.2); Carbon Dioxide 25 mmol/L (22-29); Chloride 96 mmol/L (96-108); Creatinine Clr Calc Pharmacy 32.8; Estimated Glomerular Filt Rate 42; Glucose Random 101 mg/dL (60-115); Magnesium 2.2 mg/dL (1.6-2.6); Potassium 4.3 mmol/L (3.3-5.1); Sodium 134 mmol/L (135-145); Total Protein 6.9 g/dL (6.5-8.0)
[2021-09-19 12:22] LABS: Hyaline Casts Urine 0-2 /LPF
[2021-09-19 12:22] LABS: B Type Natriuretic Peptide 120 pg/mL (<100); Troponin-I High Sensitivity 15.2 ng/L (<3.5-35.0)
[2021-09-19 12:23] LABS: RBC Urine 0 /HPF (0); WBC Urine 0 /HPF (0-4)
[2021-09-19] MEDS: 0.9 % Sodium Chloride 1,000 ML 999 ML IV (12:33)
[2021-09-19 13:47] LABS: Reflex Lactate? Lactic Acid Added
[2021-09-19 14:41] LABS: ~Lactic Acid-LAB USE ONLY 1.3 mmol/L (0.5-2.0)
--- NOTE | 2021-09-19 16:10 | PM.IMHP ---
History of Present Illness Date of Service: 09/19/21 Attending physician on admission: Aidan Jaeger Chief Complaint: shortness of breath this is an 86-year-old male who presents to the emergency department with shortness of breath. Patient has a history of COPD and uses 2 L of home oxygen as needed at baseline. For the past 1 week he is reported increasing cough productive of dark yellow phlegm. He also reports increasing shortness of breath from his baseline. He denies any recent sick contacts. His temperature this morning at home was 100.5. He called his PCP who recommended that he come to the emergency department for evaluation. On arrival he was tachypneic with a respiratory rate in the 30s. he was also noted to be hypoxic with an oxygen saturation of 87% but this was documented on room air. Chest x-ray showed no evidence of acute pneumonia. He received breathing treatments, IV steroids, empiric antibiotics. The decision was made to admit him for further management of acute COPD exacerbation. Vaccination status; patient reports receiving 3 doses of Pfizer Review of Systems Review of Systems: Yes all other systems are reviewed and are negative Constitutional: Constitutional: Denies chills and Reports fever(s) Cardiovascular: Cardiovascular: Denies chest pain, Denies palpitations and Reports dyspnea Respiratory: Respiratory: Reports cough and Reports dyspnea Gastrointestinal: Gastrointestinal: Denies abdominal pain, Denies nausea and Denies vomiting Endocrine: Endocrine: Denies palpitations [facility] Medical History COPD (chronic obstructive pulmonary disease) Esophageal dysphagia Essential hypertension History of hiatal hernia Left bundle branch block NICM (nonischemic cardiomyopathy) Nonrheumatic aortic (valve) stenosis Paroxysmal atrial fibrillation Functional capacity: uses cane/walker Family History Father No problems noted. Mother No problems noted. Pertinent family history: mother- history of lung cancer Surgical History History of inguinal hernia repair Social History (Updated 09/19/21 @ 16:13 by CHEL Swartz) Alcohol intake: current Alcohol intake frequency: 0-2 drinks per day Patient Tobacco Use Status: Former Tobacco user Advance Directives: No Advance Directives Information Provided: No Meds Allergies Allergy/AdvReac Type Severity Reaction Status Date / Time No Known Allergies Allergy Verified 07/30/21 13:31 Active Medications: Current Medications Acetaminophen (Acetaminophen 325 Mg Tablet) 650 mg PO Q6H PRN PRN Reason: Pain, Mild (Pain Scale 1-3) Albuterol Sulfate (Albuterol Sulfate (0.083%) 2.5 Mg/3 Ml Vial.Neb) 2.5 mg INHALE Q6H PRN PRN Reason: Shortness Of Breath Albuterol/Ipratropium (Albuterol/Iprat 2.5/0.5mg 3 Ml Ampul.Neb) 3 ml INHALE RQ6H WHILE AWAKE [facility] Allopurinol (Allopurinol 300 Mg Tablet) 300 mg PO DAILY [facility] Benzonatate (Benzonatate 100 Mg Capsule) 100 mg PO TID [facility] Bumetanide (Bumetanide 1 Mg Tablet) 2 mg PO BID [facility]; Protocol Docusate Sodium (Docusate Sodium 100 Mg Capsule) 100 mg PO DAILY PRN PRN Reason: Constipation Heparin Sodium (Porcine) (Heparin Sodium,Porcine 5,000 Unit/Ml Vial) 5,000 unit SUBCUT Q12H [facility] Ceftriaxone Sodium 1 gm/ (Sodium Chloride) 50 mls @ 100 mls/hr IV Q24H [facility] Levothyroxine Sodium (Levothyroxine Sodium 75 Mcg Tablet) 75 mcg PO DAILY [facility] Magnesium Oxide (Magnesium Oxide 400 Mg Tablet) 400 mg PO BID [facility] Methylprednisolone Sodium Succinate (Methylprednisolone Sod Succ 40 Mg/Ml Vial) 40 mg IVPUSH Q12H [facility] Mirtazapine (Mirtazapine 15 Mg Tablet) 15 mg PO BEDTIME [facility] Non-Formulary Medication (Budesonide-Formoterol [Symbicort]) 2 puff PO BID [facility] Non-Formulary Medication (Simvastatin) 40 mg PO BEDTIME [facility] Omeprazole (Omeprazole 40 Mg Capsule.Dr) 40 mg PO BID [facility] Ondansetron HCl (Ondansetron Hcl 4 Mg/2 Ml Vial) 4 mg IVPUSH Q8H PRN PRN Reason: Nausea and Vomiting Pharmacy Consult (Consult Rx Perform Med Rec) 1 each MISCELLANE ONCE PRN PRN Reason: Consult order Sodium Chloride (0.9 % Sodium Chloride Flush 3 Ml Syringe) 3 ml IVFLUSH QSHIFT [facility] Warfarin Sodium (Warfarin Sodium 2.5 Mg Tablet) 2.5 mg PO BEDTIME [facility] Home Medications Medication Instructions Recorded Confirmed Last Taken Type allopurinol 300 mg tablet 300 mg PO DAILY 07/16/20 09/19/21 09/19/21 History bumetanide 2 mg tablet 2 mg PO BID tab 07/16/20 09/19/21 09/19/21 History ipratropium 0.5 mg-albuterol 3 mg 3 ml INHALATION QID PRN 07/16/20 09/19/21 Unknown History (2.5 mg base)/3 mL nebulization soln levothyroxine 75 mcg tablet 75 mcg PO DAILY 07/16/20 09/19/21 09/19/21 History mirtazapine 15 mg tablet 15 mg PO BEDTIME 07/16/20 09/19/21 09/18/21 History potassium chloride 20 mEq 20 meq PO DAILY 07/16/20 09/19/21 09/19/21 History tablet,extended release(part/cryst) simvastatin 40 mg tablet 40 mg PO BEDTIME 07/16/20 09/19/21 09/18/21 History warfarin 2.5 mg tablet 2.5 mg PO BEDTIME 07/16/20 09/19/21 09/18/21 History omeprazole 40 mg capsule,delayed 40 mg PO BID cap 01/23/21 09/19/21 09/19/21 History release albuterol sulfate 2.5 mg INHALATION Q6H PRN 09/19/21 09/19/21 Unknown History amiodarone 100 mg tablet 1 tab PO DAILY 09/19/21 09/19/21 09/19/21 History magnesium oxide 400 mg PO BID 09/19/21 09/19/21 09/19/21 History Physical Exam Vital Signs and Narrative: Vital Signs: Last Vital Signs Temp 98.6 F 09/19/21 14:26 Pulse 82 09/19/21 14:26 Resp 13 09/19/21 14:26 BP 130/61 09/19/21 14:26 Pulse Ox 91 L 09/19/21 14:26 BMI result Body Mass Index 23.1 Const: General: cooperative, comfortable, alert and awake Nutritional Appearance: average body habitus Orientation/consciousness: patient oriented x3 Resp: Effort & Inspection: normal respiratory effort, able to speak in complete sentences and audible wheezes Auscultation: clear to auscultation bilaterally Cardio: Rate: regular rate Heart sounds: S1 normal heart sound present and S2 normal heart sound present GI: Palpation (GI): Soft to palpation and nontender Neuro: General: patient oriented x3 Extrem: General: Yes no pedal edema Results Labs CBC and Chem 7: 09/19/21 11:41 09/19/21 11:41 Labs: Laboratory Results - last 24 hr 09/19/21 09/19/21 09/19/21 11:41 11:41 11:41 MCV 89.7 MCH 29.0 MCHC 32.3 RDW 15.2 Plt Count 196 MPV 10.7 Immature Gran % (Auto) 0.6 H Neut % (Auto) 89.9 H Lymph % (Auto) 1.8 L [place] % (Auto) 7.4 Eos % (Auto) 0.1 Baso % (Auto) 0.2 Lymph # (Auto) 0.3 L [place] # (Auto) 1.2 Eos # (Auto) 0.0 Baso # (Auto) 0.0 Abs Immat Gran (auto) 0.10 H Absolute Neuts (auto) 14.3 H Absolute Nucleated RBC 0.000 Nucleated RBC % (auto) 0.0 PT 24.3 H INR 2.1 H Anion Gap 17 Estim Creat Clear Calc 32.8 Estimated GFR 42 Random Glucose 101 Lactic Acid Lactic Acid F/U @ 2Hr Calcium 8.8 Magnesium 2.2 Total Bilirubin 0.8 Direct Bilirubin 0.3 AST 21 ALT 12 Alkaline Phosphatase 71 Troponin I High Sens B-Natriuretic Peptide Total Protein 6.9 Albumin 3.9 Urine Color Urine Appearance Urine pH Ur Specific [place] Urine Protein Urine Glucose (UA) Urine Ketones Urine Blood Urine Nitrite Ur Leukocyte Esterase Urine RBC Urine WBC Ur Squamous Epith Cells Urine Bacteria Hyaline Casts COVID-19 (JAYJAY) COVID-19 Clin Com Influenza Type A (JUAN) Influenza Type B (JUAN) Influenza A & B Note 09/19/21 09/19/21 09/19/21 11:41 11:41 11:41 MCV MCH MCHC RDW Plt Count MPV Immature Gran % (Auto) Neut % (Auto) Lymph % (Auto) [place] % (Auto) Eos % (Auto) Baso % (Auto) Lymph # (Auto) [place] # (Auto) Eos # (Auto) Baso # (Auto) Abs Immat Gran (auto) Absolute Neuts (auto) Absolute Nucleated RBC Nucleated RBC % (auto) PT INR Anion Gap Estim Creat Clear Calc Estimated GFR Random Glucose Lactic Acid 3.3 H* Lactic Acid F/U @ 2Hr Calcium Magnesium Total Bilirubin Direct Bilirubin AST ALT Alkaline Phosphatase Troponin I High Sens 15.2 B-Natriuretic Peptide 120 H Total Protein Albumin Urine Color Urine Appearance Urine pH Ur Specific [place] Urine Protein Urine Glucose (UA) Urine Ketones Urine Blood Urine Nitrite Ur Leukocyte Esterase Urine RBC Urine WBC Ur Squamous Epith Cells Urine Bacteria Hyaline Casts COVID-19 (JAYJAY) COVID-19 Clin Com Influenza Type A (JUAN) Negative Influenza Type B (JUAN) Negative Influenza A & B Note See Note 09/19/21 09/19/21 09/19/21 11:41 11:47 14:26 MCV MCH MCHC RDW Plt Count MPV Immature Gran % (Auto) Neut % (Auto) Lymph % (Auto) [place] % (Auto) Eos % (Auto) Baso % (Auto) Lymph # (Auto) [place] # (Auto) Eos # (Auto) Baso # (Auto) Abs Immat Gran (auto) Absolute Neuts (auto) Absolute Nucleated RBC Nucleated RBC % (auto) PT INR Anion Gap Estim Creat Clear Calc Estimated GFR Random Glucose Lactic Acid Lactic Acid F/U @ 2Hr 1.3 Calcium Magnesium Total Bilirubin Direct Bilirubin AST ALT Alkaline Phosphatase Troponin I High Sens B-Natriuretic Peptide Total Protein Albumin Urine Color YELLOW Urine Appearance HAZY Urine pH 6.5 Ur Specific [place] 1.010 Urine Protein NEG Urine Glucose (UA) NEG Urine Ketones NEG Urine Blood TRACE Urine Nitrite NEG Ur Leukocyte Esterase NEG Urine RBC 0 Urine WBC 0 Ur Squamous Epith Cells NONE Urine Bacteria NONE Hyaline Casts 0-2 COVID-19 (JAYJAY) Negative COVID-19 Clin Com See Note Influenza Type A (JUAN) Influenza Type B (JUAN) Influenza A & B Note Imaging Radiologist's Impressions: Impressions Chest X-Ray 09/19/21 12:30 IMPRESSION: Mild increased bilateral interstitial markings especially lower lobes likely chronic changes. No acute pneumonic consolidation or pleural effusion seen. Previous CT chest reveals bilateral posterior pleural thickening and mild interstitial changes 01/17/2021. Assessment and Plan (1) COPD (chronic obstructive pulmonary disease): Status: Acute Plan this is an 86-year-old male with history of nonischemic cardiomyopathy, atrial fibrillation on Coumadin, oxygen dependent COPD, hyperlipidemia who presents to the emergency department today with shortness of breath chronic respiratory failure/ acute COPD exacerbation no evidence of sepsis. 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 Quality Stroke Does the patient have a stroke diagnosis?: No VTE Prior VTE?: No VTE Risk Level:: Medical - moderate - high VTE Device Contraindication: N/A - Device Ordered VTE Drug Contraindication: N/A - Med Ordered
--- NOTE | 2021-09-19 18:20 | PC.NURSE ---
Attempted to give report on patient. Plan at this time is to defer until after shift change
[2021-09-19] MEDS: 0.9 % Sodium Chloride Flush 3 ML SYRINGE IVFLUSH ×2 (19:03→20:55)
[2021-09-19] MEDS: Heparin Sodium,Porcine 5,000 UNIT/ML VIAL 5000 UNIT SUBCUT (19:31)
[2021-09-19] MEDS: Bumetanide 1 MG TABLET 2 MG PO (19:32)
[2021-09-19] MEDS: Omeprazole 40 MG CAPSULE.DR PO (19:32)
[2021-09-19] MEDS: Mirtazapine 15 MG TABLET PO (20:54)
[2021-09-19] MEDS: Warfarin Sodium 2.5 MG TABLET PO (20:54)
[2021-09-19] MEDS: Benzonatate 100 MG CAPSULE PO (20:54)
[2021-09-19] MEDS: Magnesium Oxide 400 MG TABLET PO (20:55)
[2021-09-19] MEDS: Atorvastatin Calcium 20 MG TABLET PO (20:55)
[2021-09-19] MEDS: methylPREDNISolone Sod Succ 40 MG/ML VIAL IVPUSH (23:01)
[2021-09-20] VITALS (9 sets, daily range): BP systolic 124–151; BP diastolic 61–86; PULSE 66–91; RESP 18–20; TEMP 36.4–37; O2SAT 91–97
[2021-09-20] MEDS: Heparin Sodium,Porcine 5,000 UNIT/ML VIAL 5000 UNIT SUBCUT ×2 (05:47→18:19)
[2021-09-20] MEDS: Levothyroxine Sodium 75 MCG TABLET PO (05:48)
[2021-09-20] MEDS: Omeprazole 40 MG CAPSULE.DR PO ×2 (05:48→16:17)
[2021-09-20 06:48] LABS: Hematocrit 37.5 % (42.0-52.0); Hemoglobin 12.1 g/dl (14.0-18.0); Mean Corpuscular HGB Conc 32.3 g/dl (31.0-36.0); Mean Corpuscular Hemoglobin 28.6 pg (27.0-33.0); Mean Corpuscular Volume 88.7 fL (80.0-98.0); Mean Platelet Volume 10.9 fL (9.4-12.4); Platelet Count 170 X10*3/uL (160-400); Red Blood Count 4.23 X10*6/uL (4.60-5.80); Red Cell Distribution Width 15.2 % (11.0-16.0); White Blood Count 12.6 X10*3/uL (4.8-10.8)
[2021-09-20 06:52] LABS: INTERNATIONAL NORM RATIO 2.1 (0.9-1.1)
[2021-09-20 07:14] LABS: Anion Gap 13 (12-20); Blood Urea Nitrogen 28 mg/dL (9-16); Calcium 8.7 mg/dL (8.4-10.2); Carbon Dioxide 26 mmol/L (22-29); Chloride 100 mmol/L (96-108); Creatinine Clr Calc Pharmacy 40.5; Estimated Glomerular Filt Rate 53; Glucose Random 151 mg/dL (60-115); Potassium 3.9 mmol/L (3.3-5.1); Sodium 135 mmol/L (135-145)
[2021-09-20] MEDS: Albuterol/Iprat 2.5/0.5MG 3 ML AMPUL.NEB INHALE ×3 (07:40→19:38)
[2021-09-20] MEDS: Fluticasone/Vilanterol 200/25 BLST.W.DEV 1 PUFF INHALE (09:00)
[2021-09-20] MEDS: 0.9 % Sodium Chloride Flush 3 ML SYRINGE IVFLUSH ×3 (09:11→20:53)
[2021-09-20] MEDS: Magnesium Oxide 400 MG TABLET PO ×2 (09:16→20:53)
[2021-09-20] MEDS: Benzonatate 100 MG CAPSULE PO ×3 (09:16→20:53)
[2021-09-20] MEDS: Bumetanide 1 MG TABLET 2 MG PO ×2 (09:16→16:17)
[2021-09-20] MEDS: allopurinoL 300 MG TABLET PO (09:16)
[2021-09-20] MEDS: methylPREDNISolone Sod Succ 40 MG/ML VIAL IVPUSH ×2 (10:50→22:47)
[2021-09-20] MEDS: cefTRIAXone sodium 1 GM in 0.9 % Sodium Chloride 50 ML IV (12:18)
--- NOTE | 2021-09-20 15:06 | HO.PM.IMPN ---
Subjective Subjective Date of Service: 09/20/21 Interval History: seen and examined this morning reports improvement in breathing and cough no fever or chills Review of Systems Review of Systems: Yes all other systems are reviewed and are negative Constitutional Constitutional: Denies chills and Denies fever(s) Cardiovascular Cardiovascular: Denies chest pain, Denies palpitations and Denies dyspnea Respiratory Respiratory: Reports cough and Denies dyspnea Endocrine Endocrine: Denies palpitations Physical Exam Vital Signs: Vital Signs: Last Vital Signs Temp 97.7 F 09/20/21 11:08 Pulse 88 09/20/21 14:08 Resp 18 09/20/21 14:08 BP 129/61 09/20/21 11:08 Pulse Ox 95 09/20/21 11:08 BMI result Body Mass Index 23.1 Const: General: cooperative, comfortable, alert and awake Nutritional Appearance: average body habitus Orientation/consciousness: patient oriented x3 Resp: Effort & Inspection: normal respiratory effort and able to speak in complete sentences Auscultation: clear to auscultation bilaterally Cardio: Rate: regular rate Heart sounds: S1 normal heart sound present and S2 normal heart sound present GI: Palpation (GI): Soft to palpation and nontender Neuro: General: patient oriented x3 Extrem: General: Yes no pedal edema Objective Data Active Medications Acetaminophen (Acetaminophen 325 Mg Tablet) 650 mg PO Q6H PRN PRN Reason: Pain, Mild (Pain Scale 1-3) Albuterol Sulfate (Albuterol Sulfate (0.083%) 2.5 Mg/3 Ml Vial.Neb) 2.5 mg INHALE Q6H PRN PRN Reason: Shortness Of Breath Albuterol/Ipratropium (Albuterol/Iprat 2.5/0.5mg 3 Ml Ampul.Neb) 3 ml INHALE RQ6H WHILE AWAKE [facility] Last Admin: 09/20/21 14:06 Dose: 3 ml Documented by: SHARON Allopurinol (Allopurinol 300 Mg Tablet) 300 mg PO DAILY [facility] Last Admin: 09/20/21 09:16 Dose: 300 mg Documented by: FALLON Atorvastatin Calcium (Atorvastatin Calcium 20 Mg Tablet) 20 mg PO BEDTIME [facility] Last Admin: 09/19/21 20:55 Dose: 20 mg Documented by: CASTILM Benzonatate (Benzonatate 100 Mg Capsule) 100 mg PO TID [facility] Last Admin: 09/20/21 09:16 Dose: 100 mg Documented by: FALLON Bumetanide (Bumetanide 1 Mg Tablet) 2 mg PO BIDWM [facility]; Protocol Last Admin: 09/20/21 09:16 Dose: 2 mg Documented by: FALLON Docusate Sodium (Docusate Sodium 100 Mg Capsule) 100 mg PO DAILY PRN PRN Reason: Constipation Fluticasone/Vilanterol (Fluticasone/Vilanterol 200/25 Blst.W.Dev) 1 puff INHALE RDAILY [facility] Last Admin: 09/20/21 09:00 Dose: 1 puff Documented by: SHARMAINE Heparin Sodium (Porcine) (Heparin Sodium,Porcine 5,000 Unit/Ml Vial) 5,000 unit SUBCUT Q12H [facility] Last Admin: 09/20/21 05:47 Dose: 5,000 unit Documented by: MANISHA Ceftriaxone Sodium 1 gm/ (Sodium Chloride) 50 mls @ 100 mls/hr IV Q24H [facility] Last Infusion: 09/20/21 12:54 Dose: 0 mls/hr Documented by: FALLON Levothyroxine Sodium (Levothyroxine Sodium 75 Mcg Tablet) 75 mcg PO DAILY@0600 [facility] Last Admin: 09/20/21 05:48 Dose: 75 mcg Documented by: MANISHA Magnesium Oxide (Magnesium Oxide 400 Mg Tablet) 400 mg PO BID [facility] Last Admin: 09/20/21 09:16 Dose: 400 mg Documented by: FALLON Methylprednisolone Sodium Succinate (Methylprednisolone Sod Succ 40 Mg/Ml Vial) 40 mg IVPUSH Q12H [facility] Last Admin: 09/20/21 10:50 Dose: 40 mg Documented by: FALLON Mirtazapine (Mirtazapine 15 Mg Tablet) 15 mg PO BEDTIME [facility] Last Admin: 09/19/21 20:54 Dose: 15 mg Documented by: MANISHA Omeprazole (Omeprazole 40 Mg Capsule.) 40 mg PO BID@0630,1630 [facility] Last Admin: 09/20/21 05:48 Dose: 40 mg Documented by: MANISHA Ondansetron HCl (Ondansetron Hcl 4 Mg/2 Ml Vial) 4 mg IVPUSH Q8H PRN PRN Reason: Nausea and Vomiting Pharmacy Consult (Consult Rx Perform Med Rec) 1 each MISCELLANE ONCE PRN PRN Reason: Consult order Sodium Chloride (0.9 % Sodium Chloride Flush 3 Ml Syringe) 3 ml IVFLUSH QSHIFT [facility] Last Admin: 09/20/21 09:11 Dose: 3 ml Documented by: FALLON Warfarin Sodium (Warfarin Sodium 2.5 Mg Tablet) 2.5 mg PO DAILY@1800 [facility] Last Admin: 09/19/21 20:54 Dose: 2.5 mg Documented by: MANISHA Comments: [email or web address] Labs CBC & Chem 7: 09/20/21 05:59 09/20/21 05:59 Labs: Laboratory Results - last 24 hr 09/20/21 09/20/21 09/20/21 05:59 05:59 05:59 MCV 88.7 MCH 28.6 MCHC 32.3 RDW 15.2 Plt Count 170 MPV 10.9 Absolute Nucleated RBC 0.000 Nucleated RBC % (auto) 0.0 PT 24.0 H INR 2.1 H Anion Gap 13 Estim Creat Clear Calc 40.5 Estimated GFR 53 Random Glucose 151 H D Calcium 8.7 Microbiology Microbiology Results: Microbiology 09/19/21 11:43 Blood Culture - Preliminary Blood - Venous No growth after 24 hours. 09/19/21 11:40 Blood Culture - Preliminary Blood - Venous No growth after 24 hours. Assessment and Plan (1) Acute exacerbation of chronic obstructive pulmonary disease: Status: Acute Plan this is an 86-year-old male with history of nonischemic cardiomyopathy, atrial fibrillation on Coumadin, oxygen dependent COPD, hyperlipidemia who presents to the emergency department today with shortness of breath chronic respiratory failure/ acute COPD exacerbation on 2L supplemental oxygen as needed at baseline no evidence of sepsis. 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 Tripathi patient requires ongoing hospitalization due to acute COPD exacerbation/ need for IV steroids and scheduled breathing treatments Quality Stroke Does the patient have a stroke diagnosis?: No VTE Prior VTE?: No VTE Risk Level:: Medical - moderate - high VTE Device Contraindication: N/A - Device Ordered VTE Drug Contraindication: N/A - Med Ordered
[2021-09-20] MEDS: Warfarin Sodium 2.5 MG TABLET PO (18:20)
[2021-09-20] MEDS: Atorvastatin Calcium 20 MG TABLET PO (20:53)
[2021-09-20] MEDS: Mirtazapine 15 MG TABLET PO (20:53)
[2021-09-21 03:30] VITALS: BP 157/72; PULSE 79; RESP 18; TEMP 36.4; O2SAT 97
[2021-09-21] MEDS: Omeprazole 40 MG CAPSULE.DR PO (05:27)
[2021-09-21] MEDS: Heparin Sodium,Porcine 5,000 UNIT/ML VIAL 5000 UNIT SUBCUT (05:27)
[2021-09-21] MEDS: Levothyroxine Sodium 75 MCG TABLET PO (05:27)
[2021-09-21 07:47] VITALS: BP 138/64; PULSE 77; RESP 18; TEMP 36.3; O2SAT 95
[2021-09-21] MEDS: Albuterol/Iprat 2.5/0.5MG 3 ML AMPUL.NEB INHALE (08:00)
[2021-09-21] MEDS: Fluticasone/Vilanterol 200/25 BLST.W.DEV 1 PUFF INHALE (08:00)
[2021-09-21 08:03] VITALS: PULSE 78; RESP 20; O2SAT 96
[2021-09-21 08:15] LABS: INTERNATIONAL NORM RATIO 2.6 (0.9-1.1); Prothrombin Time 30.7 SEC (9.9-13.0)
[2021-09-21] MEDS: methylPREDNISolone Sod Succ 40 MG/ML VIAL IVPUSH (09:26)
[2021-09-21] MEDS: Bumetanide 1 MG TABLET 2 MG PO (09:26)
[2021-09-21] MEDS: Benzonatate 100 MG CAPSULE PO (09:27)
[2021-09-21] MEDS: allopurinoL 300 MG TABLET PO (09:27)
[2021-09-21] MEDS: 0.9 % Sodium Chloride Flush 3 ML SYRINGE IVFLUSH (09:27)
[2021-09-21] MEDS: Magnesium Oxide 400 MG TABLET PO (09:27)
--- NOTE | 2021-09-21 09:34 | PM.DS ---
DS: Providers Provider Date of Service: 09/21/21 Date of admission: 09/19/21 15:46 Primary care physician: Vince Neal MD Attending physician on discharge: Jim Jason Discharging clinician: Yun Curran DS: Diagnosis Discharge Diagnosis (1) Acute exacerbation of chronic obstructive pulmonary disease: Status: Acute DS: Summary Hospital Course Hospital Course: HP as per admitting provider This is an 86-year-old male who presents to the emergency department with shortness of breath.? Patient has a history of COPD and uses 2 L of home oxygen as needed at baseline.? For the past 1 week he is reported increasing cough productive of dark yellow phlegm. ? He also reports increasing shortness of breath from his baseline.? He denies any recent sick contacts.? His temperature this morning at home was 100.5.? He called his PCP who recommended that he come to the emergency department for evaluation.? On arrival he was tachypneic with a respiratory rate in the 30s.? he was also noted to be hypoxic with an oxygen saturation of 87% but this was documented on room air.? Chest x-ray showed no evidence of acute pneumonia.? He received breathing treatments, IV steroids, empiric antibiotics.? The decision was made to admit him for further management of acute COPD exacerbation. Vaccination status; patient reports receiving 3 doses of Pfizer chronic respiratory failure/ acute COPD exacerbation on 2L supplemental oxygen as needed at baseline no evidence of sepsis. treated with systemic steroids and scheduled respiratory treatments well as IV Rocephin Continue 4 days of prednisone and 3 days of azithromycin at home and follow-up with primary care provider as needed ?PAF ?currently in sinus rhythm ?continue amiodarone ?continue anticoagulation with Coumadin ?nonischemic cardiomyopathy ?no evidence of acute exacerbation at this time ?Continue home dose of Bumex ?Elevated lactic acid ?likely secondary to hypoxia, not sepsis ?hypothyroidism Continue Synthroid Hyperlipidemia Continue statin CKD3 creatinine at baseline Time Spent with Patient Time attestation: Total time spent providing and/or coordinating discharge services: Discharge coordination time: Greater than 30 minutes Quality: Safe Use of Opioids Does Pt have an Active Cancer Diagnosis on the Problem List?: No Quality: Stroke Does the patient have a stroke diagnosis?: No Physical Exam Vital Signs: Vital Signs: Last Vital Signs Temp 97.3 F 09/21/21 07:47 Pulse 78 09/21/21 08:03 Resp 20 09/21/21 08:03 BP 138/64 09/21/21 07:47 Pulse Ox 95 09/21/21 07:47 BMI result Body Mass Index 23.1 Appearing in no acute distress head is normocephalic atraumatic eyes pupils are PERRLA sclera is anicteric mouth throat mucous membranes are intact and moist neck is supple no lymphadenopathy, no JVD noted lung sounds mild exp wheezing heart regular rate rhythm, clear S1, S2 positive bowel sounds, abdomen is soft, nontender neuro patient is alert x3, no focal deficits DS: Data Data Completed and Pending Labs on day of discharge: Laboratory Results - last 24 hr 09/21/21 08:04 PT 30.7 H INR 2.6 H Preliminary micro results at discharge 09/19/21 11:43 Blood Culture - Preliminary Blood - Venous No growth after 24 hours. 09/19/21 11:40 Blood Culture - Preliminary Blood - Venous No growth after 24 hours. Discharge Plan Discharge Anticipated Discharge Date/Time: 09/21/21 09:28 Patient Disposition: Home, Self-Care Discharge Diagnosis: Acute on chronic respiratory failure secondary to COPD exacerbation Referrals: Vince Neal MD [Primary Care Provider] - 1 Week Discharge Medications: New prednisone 10 mg tablet 40 mg PO DAILY Qty: 16 0RF azithromycin 500 mg tablet 500 mg PO DAILY 3 Days Qty: 3 0RF Continued budesonide-formoterol [Symbicort] 160-4.5 mcg/actuation HFA aerosol inhaler 2 puff PO BID Qty: 10.2 5RF albuterol sulfate 2.5 mg /3 mL (0.083 %) solution for nebulization 2.5 mg inhalation Q6H PRN (Reason: Shortness Of Breath) 0RF amiodarone 100 mg tablet 1 tab PO DAILY 0RF magnesium oxide 400 mg magnesium Tablet 400 mg PO BID 0RF allopurinol 300 mg tablet 300 mg PO DAILY 0RF ipratropium-albuterol 0.5 mg-3 mg(2.5 mg base)/3 mL solution for nebulization 3 ml inhalation QID PRN (Reason: Shortness Of Breath Or Wheezing) 0RF mirtazapine 15 mg tablet 15 mg PO BEDTIME 0RF simvastatin 40 mg tablet 40 mg PO BEDTIME 0RF bumetanide 2 mg tablet 2 mg PO BID 0RF levothyroxine 75 mcg tablet 75 mcg PO DAILY 0RF potassium chloride 20 mEq tablet,ER particles/crystals 20 meq PO DAILY 0RF warfarin 2.5 mg tablet 2.5 mg PO BEDTIME 0RF omeprazole 40 mg capsule,delayed release(DR/EC) 40 mg PO BID 0RF Discharge Orders: Discharge Order (Routine); Ordered 09/21/21 Ordered By: Yun Curran Diet: advance to usual diet Activity on Discharge: As tolerated Stand Alone Forms: Patient Portal Discharge page Care Plan Goals: complete resolution of symptoms Health Concerns: acute on chronic respiratory failure secondary to COPD exacerbation Plan of Treatment: Follow-up with her primary care provider as needed Take all your medications prescribed Assessment: see discharge summary
[2021-09-21 11:45] VITALS: BP 119/60; PULSE 89; RESP 18; TEMP 36.3; O2SAT 96
--- NOTE | 2021-09-21 12:31 | MHC.CM.PN ---
PT REPORTS HE LIVES WITH HIS AND IS INDEPENDENT WITH CARE PT DENIES HAVING HOME SERVICES AND REPORTS HE USES O2 AND A NEBULIZER HE HAS A HCP ON FILE AND CONFIRMS HIS PCP IS [facility]ER[facility] PT REPORTS HE IS VACCINATED AGAINST COVID-19 WITH PFIZER X 3 IMM DELIVERED PT WILL DC HOME TODAY WITH NO SERVICES TO TRANSPORT
== END 2021-09-21 12:33 | disposition home or self-care (01) | DRG 191 ==
LOC: HO.ED 11:42 → HO.EDOVER 15:59 → HO.S3 17:46
PROVIDERS: Nurse Practitioner Family; Admitting Provider Physician Assistant Medical; Emergency Provider Emergency Medicine; PCP Internal Medicine; Visit Provider Nurse Practitioner Acute Care
DX: J44.1 Chronic obstructive pulmonary disease with (acute) exacerbation (principal); I42.8 Other cardiomyopathies; J96.11 Chronic respiratory failure with hypoxia; I48.0 Paroxysmal atrial fibrillation; I35.0 Nonrheumatic aortic (valve) stenosis; I44.7 Left bundle-branch block, unspecified; Z20.822 Contact with and (suspected) exposure to COVID-19; Z87.891 Personal history of nicotine dependence; Z79.01 Long term (current) use of anticoagulants; Z79.890 Hormone replacement therapy; Z79.899 Other long term (current) drug therapy; E03.9 Hypothyroidism, unspecified
CPT/HCPCS: 36415; 71046; 80048; 80076; 81001; 81003; 83605; 83735; 83880; 84484; 85025; 85027; 85610; 87040; 87502; 87635; 93005; 94640; 96361; 96365; 96375; 99285; J0696; J2920; J2930

== ENCOUNTER 2021-10-07 11:02 | Outpatient (REF) | payer MEDICARE, SELFPAY ==
[2021-10-07 12:54] LABS: MANUAL DIFF FLAG NO
[2021-10-07 12:56] LABS: Basophils Percent Auto 0.1 % (0-2); Eosinophils Absolute Auto 0.1 X10*3/uL (0.0-0.4); Eosinophils Percent Auto 0.7 % (0-4); Hematocrit 37.2 % (42.0-52.0); Hemoglobin 11.9 g/dl (14.0-18.0); Imm Gran Abs Auto 0.09 X10*3/uL (0.00-0.03); Imm Gran Pct Auto 0.6 % (0.0-0.4); Lymphocytes Absolute Auto 0.5 X10*3/uL (1.2-4.9); Lymphocytes Percent Auto 3.2 % (20-40); Mean Corpuscular Hemoglobin 28.3 pg (27.0-33.0); Mean Corpuscular Volume 88.6 fL (80.0-98.0); Monocytes Percent Auto 6.4 % (2-11); Neutrophils Absolute Auto 13.4 x10*3/uL (2.0-8.3); Platelet Count 236 X10*3/uL (160-400); White Blood Count 15.1 X10*3/uL (4.8-10.8)
[2021-10-07 13:09] LABS: Alanine Aminotransferase 12 U/L (0-40); Albumin Level 3.1 g/dL (3.5-5.0); Alkaline Phosphatase 63 U/L (39-117); Anion Gap 13 (12-20); Aspartate Amino Transferase 14 U/L (5-37); Bilirubin Total 0.8 mg/dL (0.0-1.0); Blood Urea Nitrogen 50 mg/dL (9-16); Calcium 8.6 mg/dL (8.4-10.2); Carbon Dioxide 26 mmol/L (22-29); Chloride 97 mmol/L (96-108); Estimated Glomerular Filt Rate 45; Glucose Random 88 mg/dL (60-115); Potassium 3.8 mmol/L (3.3-5.1); Sodium 132 mmol/L (135-145); Total Protein 5.6 g/dL (6.5-8.0)
[2021-10-07 13:41] LABS: B Type Natriuretic Peptide 34 pg/mL (<100)
== END 2021-10-07 11:03 | disposition home or self-care (01) ==
LOC: HO.10HDL 11:02
PROVIDERS: Visit Provider Internal Medicine
DX: R05.9 Cough, unspecified (principal); J44.9 Chronic obstructive pulmonary disease, unspecified; I50.9 Heart failure, unspecified; N18.9 Chronic kidney disease, unspecified
CPT/HCPCS: 36415; 80053; 83880; 85025

== ENCOUNTER 2021-10-15 12:54 | Inpatient (IN) | payer MEDICARE, SELFPAY ==
[2021-10-15] VITALS (12 sets, daily range): BP systolic 94–148; BP diastolic 50–79; PULSE 70–107; RESP 15–32; TEMP 36.6–38.1; O2SAT 70–96; BMI 21.4
--- NOTE | ~2021-10-15 | CT_ITS ---
EXAMINATION: CT HEAD WITHOUT CONTRAST CLINICAL INFORMATION: New onset seizure COMPARISON: None TECHNIQUE: Contiguous axial imaging was performed from the skull base to vertex without intravenous administration of contrast. Additional 2-D coronal and sagittal reformatted images are generated on the CT workstation and uploaded to PACS. This CT examination was performed using dose optimization techniques as appropriate, variously including the following: *Automated exposure control *Adjustment of mA and/or kV according to patient size (this includes techniques or standardized protocols for targeted exams where dose is matched to indication/reason for exam; i.e. extremities or head) *Use of iterative reconstruction technique DLP: 770 mGy-cm FINDINGS: There is no intracranial hemorrhage, hematoma, or extra-axial fluid collection. The ventricles are normal in size. There is no hydrocephalus, edema, or mass effect. There is mild bilateral accentuated periventricular white matter gliosis adjacent to the ventricular atrium. Small nonspecific hypodensity is present in the left parietal white matter approximately 1.1 x 1.4 cm. No mass effect. No cortical involvement. There is mild atrophic change with prominence of the cortical sulci and fissures and cisterns. There is no visible acute territorial infarct or definite mass lesion. The calvarium appears intact. There is no pneumocephalus or orbital emphysema. There are opacified right mastoid air cells. No air-fluid levels. No bony destruction. Middle ears and the sinuses appear well-aerated and clear. CT/CT head/brain wo con IMPRESSION: -No intracranial hemorrhage, hydrocephalus, or mass effect. -Nonspecific hypodensity left parietal white matter under 1.5 cm of uncertain chronicity. This could be further assessed with MRI without and with gadolinium. -Opacified right mastoid air cells. No fluid levels or bony destructive process. Sinuses and middle ears clear.
--- NOTE | ~2021-10-15 | XR_ITS ---
EXAMINATION: XR CHEST CLINICAL INFORMATION: Hypoxia. COMPARISON: Chest x-ray 10/23/2021 TECHNIQUE: Frontal view of the chest was obtained. FINDINGS: The lungs are hyperinflated but clear of acute medical acute process. There is increased lucency in the left lung likely secondary to emphysema with left basilar opacity likely atelectasis/infiltrate. Heart size and pulmonary vascularity is normal. No gross bony abnormality seen. XR/XR chest 1V IMPRESSION: Hyperinflated lungs with increased lucency left lung likely secondary to COPD. No change in left basilar opacity from infiltrate/atelectasis
--- NOTE | ~2021-10-15 | XR_ITS ---
EXAMINATION: XR CHEST CLINICAL INFORMATION: Shortness of breath COMPARISON: Previous chest x-ray September [address] August 2019 TECHNIQUE: Frontal view of the chest was obtained. FINDINGS: The cardiac and mediastinal contours are normal. There is bronchial wall thickening seen at the lung bases. There is a patchy airspace disease left lung base suggestive of bronchopneumonia. The lungs are otherwise clear. There is no pleural effusion or pneumothorax. There are degenerative changes of the spine. XR/XR chest 1V IMPRESSION: Bilateral bronchial wall thickening at the lung bases and probable left base bronchopneumonia.
--- NOTE | ~2021-10-15 | CT_ITS ---
EXAMINATION: CT CHEST WITHOUT CONTRAST CLINICAL INFORMATION: Hypoxia. COMPARISON: 01/17/2021 TECHNIQUE: Multidetector volumetric CT imaging of the chest was done. Axial MIP volume rendering provided. Sagittal and coronal reformatted images were obtained. This CT examination was performed using dose optimization techniques as appropriate, variously including the following: *Automated exposure control *Adjustment of mA and/or kV according to patient size (this includes techniques or standardized protocols for targeted exams where dose is matched to indication/reason for exam; i.e. extremities or head) *Use of iterative reconstruction technique DLP: 158 mGy-cm FINDINGS: LUNGS: The central airways are patent. There is confluent disease seen within the lower lobes bilaterally, left greater than right. There are some regions of mucus plugging seen within the right lower lobe bronchi. There are significant changes of centrilobular emphysema seen bilaterally. There are some scattered sub-4 mm densities present. There is a 4 mm noncalcified nodule seen within the right upper lobe on image [address] series #5. This is stable. MEDIASTINUM: The visualized thyroid gland appears unremarkable. There is cardiomegaly present with prominent coronary artery calcifications seen as well as aortic valve and mitral annular calcifications. There is nonocclusive calcified plaque seen within the aortic arch. No pericardial effusion is identified. No mediastinal or hilar lymphadenopathy is seen. No thoracic aortic aneurysm. PLEURA: There are bilateral calcified pleural plaques present consistent with previous asbestos exposure. No pleural effusions are seen. AXILLA: No lymphadenopathy. UPPER ABDOMEN: Bilateral renal cysts are present. OSSEOUS STRUCTURES: No suspicious destructive bony lesions identified. There is osteopenia present with some calcification of the anterior longitudinal ligament and ankylosis. CT/CT chest wo con IMPRESSION: Bilateral lower lobe disease, left greater than right, which may be related to atelectasis or pneumonitis. Significant changes of emphysema seen bilaterally. Cardiomegaly with prominent atherosclerotic calcifications. Bilateral calcified pleural plaques consistent with previous asbestos exposure without pleural effusion. Diffuse osteopenia and DISH.
--- NOTE | ~2021-10-15 | XR_ITS ---
EXAMINATION: XR CHEST CLINICAL INFORMATION: Dyspnea COMPARISON: 10/15/2021 TECHNIQUE: Frontal view of the chest was obtained. FINDINGS: Increasing left basilar opacity consistent with atelectasis/infiltrate. The right lung is comparable to previous. There are no obvious failure. No large effusion. The cardiac silhouette is comparable XR/XR chest 1V IMPRESSION: Increasing left basilar opacity consistent with ongoing increasing atelectasis/infiltrate
--- NOTE | 2021-10-15 13:10 | ECG_ITS ---
Test Reason : sob Blood Pressure : / mmHG Vent. Rate : 102 BPM Atrial Rate : 102 BPM P-R Int : 218 ms QRS Dur : 128 ms QT Int : 360 ms P-R-T Axes : 079 -52 084 degrees QTc Int : 469 ms Sinus tachycardia with 1st degree A-V block Left axis deviation Left bundle branch block Abnormal ECG When compared with ECG of 19-SEP-2021 11:47, No significant change was found Referred By: Evie Samaniego Electronically Signed By:FEDERICA CASTORENA MD
--- NOTE | 2021-10-15 13:12 | ED.SOB ---
HPI - SOB/Dyspnea General Chief Complaint: Dyspnea Stated Complaint: DIFF BREATHING Time Seen by Provider: 10/15/21 13:00 Source: patient and EMS Mode of arrival: EMS Limitations: no limitations History of Present Illness HPI Narrative: 86-year-old male came in by ambulance for evaluation of shortness of breath and difficulty breathing. History of COPD, uses 2 L of supplemental oxygen p.r.n. at home patient has been using supplemental oxygen constantly for the past 2 days, patient recently was admitted to the hospital for COPD exacerbation with bronchitis, patient was sent home on antibiotic and course of prednisone which is been compliant with, since yesterday patient been having difficulty breathing and increased coughing with greenish sputum. Patient with history of for mild congestive heart failure with LVEF 45-50%. Patient had a history of intubation for severe COPD exacerbation about 4 years ago. Related Data Home Medications Medication Instructions Recorded Confirmed allopurinol 300 mg tablet 300 mg PO DAILY 07/16/20 09/19/21 bumetanide 2 mg tablet 2 mg PO BID tab 07/16/20 09/19/21 ipratropium 0.5 mg-albuterol 3 mg 3 ml INHALATION QID PRN 07/16/20 09/19/21 (2.5 mg base)/3 mL nebulization soln levothyroxine 75 mcg tablet 75 mcg PO DAILY 07/16/20 09/19/21 mirtazapine 15 mg tablet 15 mg PO BEDTIME 07/16/20 09/19/21 potassium chloride 20 mEq 20 meq PO DAILY 07/16/20 09/19/21 tablet,extended release(part/cryst) simvastatin 40 mg tablet 40 mg PO BEDTIME 07/16/20 09/19/21 warfarin 2.5 mg tablet 2.5 mg PO BEDTIME 07/16/20 09/19/21 omeprazole 40 mg capsule,delayed 40 mg PO BID cap 01/23/21 09/19/21 release albuterol sulfate 2.5 mg INHALATION Q6H PRN 09/19/21 09/19/21 amiodarone 100 mg tablet 1 tab PO DAILY 09/19/21 09/19/21 magnesium oxide 400 mg PO BID 09/19/21 09/19/21 Previous Rx's Medication Instructions Recorded Symbicort 160 mcg-4.5 2 puff PO BID #10.2 g NS 09/17/21 mcg/actuation HFA aerosol inhaler (budesonide-formoterol) azithromycin 500 mg tablet 500 mg PO DAILY 3 Days #3 tab 09/21/21 prednisone 10 mg tablet 40 mg PO DAILY #16 tab 09/21/21 docusate sodium 100 mg capsule 100 mg PO BID #60 cap 10/14/21 (Colace) Allergies Allergy/AdvReac Type Severity Reaction Status Date / Time No Known Allergies Allergy Verified 10/15/21 13:12 Review of Systems Review of Systems: All other systems are reviewed and are negative Constitutional: Reports as per HPI and Reports no additional constitutional complaints Eyes: Reports as per HPI and Reports no additional eye complaints Reports system reviewed and no additional complaints, except as documented Cardiovascular: Reports as per HPI and Reports no additional cardiovascular complaints Respiratory: Reports as per HPI and Reports no additional respiratory complaints Gastrointestinal: Reports as per HPI and Reports no additional gastrointestinal complaints Genitourinary: Reports no additional female genitourinary complaints Musculoskeletal: Reports no additional musculoskeletal complaints Skin/Breast: Reports system reviewed and no additional complaints, except as docu Psychiatric: Reports no additional psychiatric complaints Endocrine: Reports no additional endocrine complaints Hematologic/Lymphatic: Reports no additional hematologic/lymphatic complaints Allergic/Immunologic: Reports no additional allergic/immunologic complaints Reports system reviewed and no additional complaints, except as documented and Reports Abnormal speech present [facility] Past Medical History Medical History COPD (chronic obstructive pulmonary disease) Esophageal dysphagia Essential hypertension History of hiatal hernia Left bundle branch block NICM (nonischemic cardiomyopathy) Nonrheumatic aortic (valve) stenosis Paroxysmal atrial fibrillation Surgical History History of inguinal hernia repair Family History Family History Father No problems noted. Mother No problems noted. Social History Social History Household Members: Spouse Housing: House Do you presently have visiting nurse or other home services: Yes Alcohol intake: current Alcohol intake frequency: 0-2 drinks per day Patient Tobacco Use Status: Former Tobacco user Use of substances other than those prescribed or required for medical reasons: No Advance Directives: Yes Advance Directives Information Provided: No Advance Directives on File: No service: No Current occupational status: retired Physical Exam Vital Signs: Vital Signs: Last Vital Signs Temp 98.4 F 10/15/21 15:48 Pulse 93 10/15/21 17:01 Resp 22 H 10/15/21 17:01 BP 94/50 L 10/15/21 17:01 Pulse Ox 90 L 10/15/21 17:01 Oxygen Flow Rate 4 10/15/21 13:12 BMI result Body Mass Index 21.4 Vital signs have been reviewed as appeared to be correct. Blood pressure normal. Heart rate normal. Respiration rate normal. Temperature normal. Oxygen saturation normal. Appearance: Alert. Oriented X3. Mild acute respiratory distress. Head: Normal external exam. Normocephalic. Atraumatic. No Castelan signs noted. No raccoon eyes noted Eyes: PERRLA. EOMI. Conjunctiva and sclera normal. Eyelids normal. ENT: TM's Normal. Pharynx normal. Uvula midline. Moist mucous membranes. No trismus noted. No drooling noted. No muffled voice noted. Neck: Normal inspection. Neck supple. FROM. No adenopathy. Thyroid Normal. No meningeal signs. No neck mass noted. CVS: Normal heart rate and rhythm. Heart sound normal. No murmurs noted. Pulses normal throughout. Respiratory: Mild acute respiratory distress. Painless inspiration. Breath sounds normal. Diffuse mild expiratory wheezing with prolonged expiration with diffuse rhonchi. Chest nontender. No accessory muscle usage noted or decreased air movement noted. Abdomen: Soft and nontender. Bowel sounds normal in all 4 quadrants. No distention noted. No organomegaly noted. No visible injury noted. Back: No CVA tenderness. Full range of motion noted. Skin: Skin warm and dry. Normal skin color. Normal skin turgor. No rashes/lesions/lacerations noted. Extremities: No lower extremity edema. Extremities exhibit normal range of motion. Extremities nontender. Neuro: Oriented X 3. Cranial nerve exam: II-XII are grossly intact No motor deficit. No sensory deficit. Reflexes normal. Course Reevaluation(s) Reevaluation #1: 86-year-old male with history of COPD came in with difficulty breathing and becoming hypoxic at home, patient normally uses 2 L of oxygen at home, return for increased productive coughing, while patient in the emergency department had seizure activity patient never had a history of seizure, stat ABG was done showed no hypercarbia, patient returned to his baseline exam, head CT is unremarkable. Chest x-ray possible left bronchopneumonia patient received Zosyn. Patient meet criteria for SIRS, patient was not given fluid because the history of congestive heart failure and there is no symptoms of severe sepsis or septic shock. Time: 17:04 MDM - SOB/Dyspnea Lab Data Attestation: I reviewed the patient's lab results. Result diagrams: 10/15/21 13:21 10/15/21 13:21 Labs: Lab Results 10/15/21 10/15/21 10/15/21 Range/Units 13:21 13:21 13:21 WBC 12.8 H (4.8-10.8) X10*3/uL RBC 4.61 (4.60-5.80) X10*6/uL Hgb 13.1 L (14.0-18.0) g/dl Hct 41.1 L (42.0-52.0) % MCV 89.2 (80.0-98.0) fL MCH 28.4 (27.0-33.0) pg MCHC 31.9 (31.0-36.0) g/dl RDW 15.9 (11.0-16.0) % Plt Count 156 L D (160-400) X10*3/uL MPV 11.2 (9.4-12.4) fL Immature Gran % (Auto) 1.2 H (0.0-0.4) % Neut % (Auto) 89.2 H (45-73) % Lymph % (Auto) 1.3 L (20-40) % Chambers % (Auto) 8.1 (2-11) % Eos % (Auto) 0.1 (0-4) % Baso % (Auto) 0.1 (0-2) % Lymph # (Auto) 0.2 L (1.2-4.9) X10*3/uL Chambers # (Auto) 1.0 (0.1-1.2) X10*3/uL Eos # (Auto) 0.0 (0.0-0.4) X10*3/uL Baso # (Auto) 0.0 (0.0-0.2) X10*3/uL Abs Immat Gran (auto) 0.15 H (0.00-0.03) X10*3/uL Absolute Neuts (auto) 11.4 H (2.0-8.3) x10*3/uL Absolute Nucleated RBC 0.000 (0.0-0.012) X10*3/uL Nucleated RBC % (auto) 0.0 (0.0-0.2) /100WBC O2 Saturation % ABG pH at Pt Temp (7.35-7.45) ABG pCO2 at Pt Temp (32-45) mmHg ABG pO2 at Pt Temp (83-108) mmHg ABG HCO3 (22-26) mmol/L ABG Base Excess (Actual) mmol/L Sodium 137 (135-145) mmol/L Potassium 3.6 (3.3-5.1) mmol/L Chloride 97 (96-108) mmol/L Carbon Dioxide 32 H (22-29) mmol/L Anion Gap 12 (12-20) BUN 37 H (9-16) mg/dL Creatinine 1.30 (0.5-1.4) mg/dL Estim Creat Clear Calc 37.5 Estimated GFR 52 POC Glucose (60-115) mg/dL Random Glucose 115 (60-115) mg/dL Lactic Acid (0.5-2.0) mmol/L Calcium 8.7 (8.4-10.2) mg/dL Total Bilirubin 0.4 (0.0-1.0) mg/dL Direct Bilirubin 0.2 (0.0-0.5) mg/dL AST 20 D (5-37) U/L ALT 22 (0-40) U/L Alkaline Phosphatase 67 (39-117) U/L Troponin I High Sens 20.3 (<3.5-35.0) ng/L B-Natriuretic Peptide 82 (<100) pg/mL Total Protein 5.9 L (6.5-8.0) g/dL Albumin 3.3 L (3.5-5.0) g/dL Lipase 13 (8-78) U/L Urine Color Urine Appearance Urine pH (5.0-8.0) Ur Specific Bourg (1.005-1.025) Urine Protein (NEG-TRACE) MG/DL Urine Glucose (UA) (NEG) MG/DL Urine Ketones (NEG) MG/DL Urine Blood (NEG) Urine Nitrite (NEG) Ur Leukocyte Esterase (NEG) Urine RBC (0) /HPF Urine WBC (0-4) /HPF Ur Squamous Epith Cells /LPF Urine Bacteria /LPF Influenza Type A (PCR) (Negative) Influenza Type B (PCR) (Negative) RSV RNA Qual (PCR) (Negative) SARS-CoV-2 RNA (RT-PCR) (Negative) 10/15/21 10/15/21 10/15/21 Range/Units 13:21 13:59 13:59 WBC (4.8-10.8) X10*3/uL RBC (4.60-5.80) X10*6/uL Hgb (14.0-18.0) g/dl Hct (42.0-52.0) % MCV (80.0-98.0) fL MCH (27.0-33.0) pg MCHC (31.0-36.0) g/dl RDW (11.0-16.0) % Plt Count (160-400) X10*3/uL MPV (9.4-12.4) fL Immature Gran % (Auto) (0.0-0.4) % Neut % (Auto) (45-73) % Lymph % (Auto) (20-40) % Chambers % (Auto) (2-11) % Eos % (Auto) (0-4) % Baso % (Auto) (0-2) % Lymph # (Auto) (1.2-4.9) X10*3/uL Chambers # (Auto) (0.1-1.2) X10*3/uL Eos # (Auto) (0.0-0.4) X10*3/uL Baso # (Auto) (0.0-0.2) X10*3/uL Abs Immat Gran (auto) (0.00-0.03) X10*3/uL Absolute Neuts (auto) (2.0-8.3) x10*3/uL Absolute Nucleated RBC (0.0-0.012) X10*3/uL Nucleated RBC % (auto) (0.0-0.2) /100WBC O2 Saturation % ABG pH at Pt Temp (7.35-7.45) ABG pCO2 at Pt Temp (32-45) mmHg ABG pO2 at Pt Temp (83-108) mmHg ABG HCO3 (22-26) mmol/L ABG Base Excess (Actual) mmol/L Sodium (135-145) mmol/L Potassium (3.3-5.1) mmol/L Chloride (96-108) mmol/L Carbon Dioxide (22-29) mmol/L Anion Gap (12-20) BUN (9-16) mg/dL Creatinine (0.5-1.4) mg/dL Estim Creat Clear Calc Estimated GFR POC Glucose (60-115) mg/dL Random Glucose (60-115) mg/dL Lactic Acid 1.6 (0.5-2.0) mmol/L Calcium (8.4-10.2) mg/dL Total Bilirubin (0.0-1.0) mg/dL Direct Bilirubin (0.0-0.5) mg/dL AST (5-37) U/L ALT (0-40) U/L Alkaline Phosphatase (39-117) U/L Troponin I High Sens (<3.5-35.0) ng/L B-Natriuretic Peptide (<100) pg/mL Total Protein (6.5-8.0) g/dL Albumin (3.5-5.0) g/dL Lipase (8-78) U/L Urine Color YELLOW Urine Appearance CLEAR Urine pH 7.0 (5.0-8.0) Ur Specific Bourg 1.010 (1.005-1.025) Urine Protein NEG (NEG-TRACE) MG/DL Urine Glucose (UA) NEG (NEG) MG/DL Urine Ketones NEG (NEG) MG/DL Urine Blood TRACE (NEG) Urine Nitrite NEG (NEG) Ur Leukocyte Esterase NEG (NEG) Urine RBC 0-2 (0) /HPF Urine WBC 0 (0-4) /HPF Ur Squamous Epith Cells NONE /LPF Urine Bacteria NONE /LPF Influenza Type A (PCR) NEGATIVE (Negative) Influenza Type B (PCR) NEGATIVE (Negative) RSV RNA Qual (PCR) NEGATIVE (Negative) SARS-CoV-2 RNA (RT-PCR) NEGATIVE (Negative) 10/15/21 10/15/21 Range/Units 14:18 14:22 WBC (4.8-10.8) X10*3/uL RBC (4.60-5.80) X10*6/uL Hgb (14.0-18.0) g/dl Hct (42.0-52.0) % MCV (80.0-98.0) fL MCH (27.0-33.0) pg MCHC (31.0-36.0) g/dl RDW (11.0-16.0) % Plt Count (160-400) X10*3/uL MPV (9.4-12.4) fL Immature Gran % (Auto) (0.0-0.4) % Neut % (Auto) (45-73) % Lymph % (Auto) (20-40) % Chambers % (Auto) (2-11) % Eos % (Auto) (0-4) % Baso % (Auto) (0-2) % Lymph # (Auto) (1.2-4.9) X10*3/uL Chambers # (Auto) (0.1-1.2) X10*3/uL Eos # (Auto) (0.0-0.4) X10*3/uL Baso # (Auto) (0.0-0.2) X10*3/uL Abs Immat Gran (auto) (0.00-0.03) X10*3/uL Absolute Neuts (auto) (2.0-8.3) x10*3/uL Absolute Nucleated RBC (0.0-0.012) X10*3/uL Nucleated RBC % (auto) (0.0-0.2) /100WBC O2 Saturation 87.0 % ABG pH at Pt Temp 7.45 (7.35-7.45) ABG pCO2 at Pt Temp 48 H (32-45) mmHg ABG pO2 at Pt Temp 59 L (83-108) mmHg ABG HCO3 33 H (22-26) mmol/L ABG Base Excess (Actual) 8.1 mmol/L Sodium (135-145) mmol/L Potassium (3.3-5.1) mmol/L Chloride (96-108) mmol/L Carbon Dioxide (22-29) mmol/L Anion Gap (12-20) BUN (9-16) mg/dL Creatinine (0.5-1.4) mg/dL Estim Creat Clear Calc Estimated GFR POC Glucose 101 (60-115) mg/dL Random Glucose (60-115) mg/dL Lactic Acid (0.5-2.0) mmol/L Calcium (8.4-10.2) mg/dL Total Bilirubin (0.0-1.0) mg/dL Direct Bilirubin (0.0-0.5) mg/dL AST (5-37) U/L ALT (0-40) U/L Alkaline Phosphatase (39-117) U/L Troponin I High Sens (<3.5-35.0) ng/L B-Natriuretic Peptide (<100) pg/mL Total Protein (6.5-8.0) g/dL Albumin (3.5-5.0) g/dL Lipase (8-78) U/L Urine Color Urine Appearance Urine pH (5.0-8.0) Ur Specific Bourg (1.005-1.025) Urine Protein (NEG-TRACE) MG/DL Urine Glucose (UA) (NEG) MG/DL Urine Ketones (NEG) MG/DL Urine Blood (NEG) Urine Nitrite (NEG) Ur Leukocyte Esterase (NEG) Urine RBC (0) /HPF Urine WBC (0-4) /HPF Ur Squamous Epith Cells /LPF Urine Bacteria /LPF Influenza Type A (PCR) (Negative) Influenza Type B (PCR) (Negative) RSV RNA Qual (PCR) (Negative) SARS-CoV-2 RNA (RT-PCR) (Negative) ABG Data Attestation: I personally reviewed and interpreted this ABG as follows: Imaging Data Chest x-ray: Attestation: I personally reviewed and interpreted this imaging study as follows: Radiologist's impression: Bilateral bronchial wall thickening at the lung bases and probable left base bronchopneumonia. CT scan - head: Attestation: I personally reviewed and interpreted this imaging study as follows: Radiologist's impression: No acute intracranial pathology. ECG Data Attestation: I personally reviewed and interpreted this ECG as follows: Interpretation: Sinus tachycardia at 102 beats per minutes, first-degree AV block, left axis deviation, left bundle branch block. No change from previous EKG Discharge Plan Discharge Clinical Impression: Bronchopneumonia, Acute exacerbation of chronic obstructive pulmonary disease, New onset seizure Patient Disposition: Admitted As Inpatient Prescriptions: No Action budesonide-formoterol [Symbicort] 160-4.5 mcg/actuation HFA aerosol inhaler 2 puff PO BID Qty: 10.2 5RF albuterol sulfate 2.5 mg /3 mL (0.083 %) solution for nebulization 2.5 mg inhalation Q6H PRN (Reason: Shortness Of Breath) 0RF amiodarone 100 mg tablet 1 tab PO DAILY 0RF magnesium oxide 400 mg magnesium Tablet 400 mg PO BID 0RF prednisone 10 mg tablet 40 mg PO DAILY Qty: 16 0RF azithromycin 500 mg tablet 500 mg PO DAILY 3 Days Qty: 3 0RF docusate sodium [Colace] 100 mg capsule 100 mg PO BID Qty: 60 0RF allopurinol 300 mg tablet 300 mg PO DAILY 0RF ipratropium-albuterol 0.5 mg-3 mg(2.5 mg base)/3 mL solution for nebulization 3 ml inhalation QID PRN (Reason: Shortness Of Breath Or Wheezing) 0RF mirtazapine 15 mg tablet 15 mg PO BEDTIME 0RF simvastatin 40 mg tablet 40 mg PO BEDTIME 0RF bumetanide 2 mg tablet 2 mg PO BID 0RF levothyroxine 75 mcg tablet 75 mcg PO DAILY 0RF potassium chloride 20 mEq tablet,ER particles/crystals 20 meq PO DAILY 0RF warfarin 2.5 mg tablet 2.5 mg PO BEDTIME 0RF omeprazole 40 mg capsule,delayed release(DR/EC) 40 mg PO BID 0RF
[2021-10-15 13:26] LABS: MANUAL DIFF FLAG NO
[2021-10-15] MEDS: Albuterol/Iprat 2.5/0.5MG 3 ML AMPUL.NEB INHALE (13:28)
[2021-10-15] MEDS: Albuterol Sulfate (0.083%) 2.5 MG/3 ML VIAL.NEB 5 MG INHALE (13:29)
[2021-10-15 13:31] LABS: Basophils Percent Auto 0.1 % (0-2); Eosinophils Percent Auto 0.1 % (0-4); Hematocrit 41.1 % (42.0-52.0); Hemoglobin 13.1 g/dl (14.0-18.0); Imm Gran Abs Auto 0.15 X10*3/uL (0.00-0.03); Imm Gran Pct Auto 1.2 % (0.0-0.4); Lymphocytes Absolute Auto 0.2 X10*3/uL (1.2-4.9); Lymphocytes Percent Auto 1.3 % (20-40); Mean Corpuscular HGB Conc 31.9 g/dl (31.0-36.0); Mean Corpuscular Hemoglobin 28.4 pg (27.0-33.0); Mean Corpuscular Volume 89.2 fL (80.0-98.0); Mean Platelet Volume 11.2 fL (9.4-12.4); Monocytes Percent Auto 8.1 % (2-11); Neutrophils Absolute Auto 11.4 x10*3/uL (2.0-8.3); Neutrophils Percent Auto 89.2 % (45-73); Platelet Count 156 X10*3/uL (160-400); Red Blood Count 4.61 X10*6/uL (4.60-5.80); Red Cell Distribution Width 15.9 % (11.0-16.0); White Blood Count 12.8 X10*3/uL (4.8-10.8)
[2021-10-15 13:37] LABS: Lactic Acid 1.6 mmol/L (0.5-2.0)
[2021-10-15] MEDS: methylPREDNISolone Sod Succ 125 MG/2 ML VIAL IVPUSH (13:37)
[2021-10-15] MEDS: Magnesium Sulfate/H2O 2 GM/50 ML PIGGYBACK IV (13:37)
[2021-10-15 13:49] LABS: Alanine Aminotransferase 22 U/L (0-40); Albumin Level 3.3 g/dL (3.5-5.0); Alkaline Phosphatase 67 U/L (39-117); Anion Gap 12 (12-20); Aspartate Amino Transferase 20 U/L (5-37); Bilirubin Direct 0.2 mg/dL (0.0-0.5); Bilirubin Total 0.4 mg/dL (0.0-1.0); Blood Urea Nitrogen 37 mg/dL (9-16); Calcium 8.7 mg/dL (8.4-10.2); Carbon Dioxide 32 mmol/L (22-29); Chloride 97 mmol/L (96-108); Creatinine Clr Calc Pharmacy 37.5; Estimated Glomerular Filt Rate 52; Glucose Random 115 mg/dL (60-115); Lipase 13 U/L (8-78); Potassium 3.6 mmol/L (3.3-5.1); Sodium 137 mmol/L (135-145); Total Protein 5.9 g/dL (6.5-8.0)
[2021-10-15 13:55] LABS: B Type Natriuretic Peptide 82 pg/mL (<100); Troponin-I High Sensitivity 20.3 ng/L (<3.5-35.0)
[2021-10-15 14:20] LABS: Appearance Urine CLEAR; Color Urine YELLOW; Glucose Urine UA NEG (NEG); Leukocyte Esterase Urine NEG (NEG); Nitrite Urine NEG (NEG); UACC Culture Trigger NO; Urine Blood TRACE (NEG); Urine Ketones NEG (NEG); Urine Protein NEG (NEG-TRACE)
--- NOTE | 2021-10-15 14:22 | PC.NURSE ---
pt had aprox 30 seconds of unresponsiveness, blank stare, tachycardic into 200's and then incontinent of urine. was briefly pale but color returned quickly. doc elmogy to bedside. was present. pt does not remember episode but does remember at bedside. VSS after episode, st on monitor. additional labs ordered by provider. pt is back to baseline. no neuro deficits. no headache.
--- NOTE | 2021-10-15 14:29 | PC.NURSE ---
sz precautions in place including pads and suction. continues to have junky cough. skin pwd. correction to late note. pt is a fib on monitor.
[2021-10-15 14:30] LABS: ABG Base Excess 8.1 mmol/L; ABG HCO3 33 mmol/L (22-26); ABG pCO2 48 mmHg (32-45); ABG pH 7.45 (7.35-7.45); ABG pO2 59 mmHg (83-108)
[2021-10-15 14:35] LABS: Glucose, Whole Blood 101 mg/dL (60-115)
[2021-10-15 14:39] LABS: RBC Urine 0-2 /HPF (0); WBC Urine 0 /HPF (0-4)
[2021-10-15 14:59] LABS: Influenza A PCR NEGATIVE (Negative); Influenza B PCR NEGATIVE (Negative); Resp Syncy Virus RNA Qual PCR NEGATIVE (Negative); SARS COV2 PCR INHOUSE NEGATIVE (Negative)
--- NOTE | 2021-10-15 15:03 | PC.NURSE ---
pt has been a difficult stick for blood cultures. phlebotomy asked for assistance. pt remains alert and oriented. family states pt is at baseline.
[2021-10-15] MEDS: Piperacillin Sodium/Tazobactam 3.375 GM in 0.9 % Sodium Chloride 50 ML IV ×2 (15:22→23:54)
--- NOTE | 2021-10-15 17:58 | P.HPHOSP_ITS ---
History of Present Illness Date of Service: 10/15/21 Chief Complaint: Shortness of breath 86 year old man presenting with worsening sob, worse over the last 2 days. He was [place] [facility] [place]. He reported increase in oxygen use, using at night now. He felt weak and had a cough. He saw his PCP and was started on steroids and an antibiotic about 10 days ago. EMS was called. In the ED, he had a seizure with loss of bladder and shaking of hims with tachycardia, hypertension. he denied hx of seizures in the past. He was stablized and during the interview stated that he felt a hot flash prior to the seizure episode. He was noted to have fever and hypotension with oxygen at 90% on 6 liters. he was given Review of Systems Review of Systems: Denies any recent fever chills or decrease in appetite respiratory See HPI cardiovascular denied chest pain gastrointestinal denies any dysphagia abdominal pain nausea vomiting or diarrhea genitourinary denies any dysuria frequency or hematuria musculoskeletal denies any joint pain or swelling neuropsych denies any weakness or seizures all other systems reviewed are negative [facility] Medical History COPD (chronic obstructive pulmonary disease) Esophageal dysphagia Essential hypertension History of hiatal hernia Left bundle branch block NICM (nonischemic cardiomyopathy) Nonrheumatic aortic (valve) stenosis Paroxysmal atrial fibrillation Family History Father No problems noted. Mother No problems noted. Surgical History History of inguinal hernia repair Social History Household Members: Spouse Housing: House Do you presently have visiting nurse or other home services: Yes Alcohol intake: current Alcohol intake frequency: 0-2 drinks per day Patient Tobacco Use Status: Former Tobacco user Use of substances other than those prescribed or required for medical reasons: No Advance Directives: Yes Advance Directives Information Provided: No Advance Directives on File: No service: No Current occupational status: retired Meds Allergies Allergy/AdvReac Type Severity Reaction Status Date / Time No Known Allergies Allergy Verified 10/15/21 13:12 Active Medications: Current Medications Acetaminophen (Acetaminophen 325 Mg Tablet) 650 mg PO Q6H PRN PRN Reason: Pain, Mild (Pain Scale 1-3) Vancomycin HCl 1,000 mg/ (Sodium Chloride) 270 mls @ 270 mls/hr IV Q12H [facility] Piperacillin Sod/Tazobactam (Sod 3.375 gm/ Sodium Chloride) 50 mls @ 100 mls/hr IV Q6H [facility] Ondansetron HCl (Ondansetron Hcl 4 Mg/2 Ml Vial) 4 mg IVPUSH Q8H PRN PRN Reason: Nausea and Vomiting Pharmacy Consult (Consult Rx Vancomycin Dosing) 1 each MISCELLANE DAILY PRN PRN Reason: Consult order Sodium Chloride (0.9 % Sodium Chloride Flush 3 Ml Syringe) 3 ml IVFLUSH QSHIFT [facility] Home Medications Medication Instructions Recorded Confirmed Last Taken Type allopurinol 300 mg tablet 300 mg PO DAILY 07/16/20 10/15/21 10/15/21 History ipratropium 0.5 mg-albuterol 3 mg 3 ml INHALATION QID PRN 07/16/20 10/15/21 10/15/21 History (2.5 mg base)/3 mL nebulization soln levothyroxine 75 mcg tablet 75 mcg PO DAILY 07/16/20 10/15/21 10/15/21 History mirtazapine 15 mg tablet 15 mg PO BEDTIME 07/16/20 10/15/21 10/14/21 History potassium chloride 20 mEq 20 meq PO DAILY 07/16/20 10/15/21 10/15/21 History tablet,extended release(part/cryst) simvastatin 40 mg tablet 40 mg PO BEDTIME 07/16/20 10/15/21 10/14/21 History warfarin 2.5 mg tablet 2.5 mg PO BEDTIME 07/16/20 10/15/21 10/14/21 History omeprazole 40 mg capsule,delayed 40 mg PO BID cap 01/23/21 10/15/21 10/15/21 History release albuterol sulfate 2.5 mg INHALATION Q6H PRN 09/19/21 10/15/21 10/15/21 History magnesium oxide 400 mg PO BID 09/19/21 10/15/21 10/15/21 History albuterol sulfate 90 mcg/actuation 1 inh INHALATION Q4H PRN 10/15/21 10/15/21 10/15/21 History aerosol inhaler (Ventolin HFA) amiodarone 200 mg tablet 0.5 tab PO DAILY 10/15/21 10/15/21 10/15/21 History cefuroxime axetil 500 mg tablet 1 tab PO BID 10/15/21 10/15/21 10/15/21 History dextromethorphan-guaifenesin 30 1 tab PO Q12H 10/15/21 10/15/21 10/15/21 History mg-600 mg tablet extended [id number] hr (Mucinex DM) docusate sodium 100 mg capsule 100 mg PO BID PRN 10/15/21 10/15/21 Unknown History (Colace) furosemide 40 mg tablet 1 tab PO BID 10/15/21 10/15/21 10/15/21 History Physical Exam Vital Signs and Narrative: Vital Signs: Last Vital Signs Temp 98.4 F 10/15/21 15:48 Pulse 93 10/15/21 17:01 Resp 22 H 10/15/21 17:01 BP 94/50 L 10/15/21 17:01 Pulse Ox 90 L 10/15/21 17:01 Oxygen Flow Rate 4 10/15/21 13:12 BMI result Body Mass Index 21.4 Appearing in no acute distress head is normocephalic atraumatic eyes pupils are PERRLA sclera is anicteric mouth throat mucous membranes are intact and moist neck is supple no lymphadenopathy, no JVD noted lung sounds rhonchi heart regular rate rhythm, clear S1, S2 positive bowel sounds, abdomen is soft, nontender neuro patient is alert x3, no focal deficits Results Labs CBC and Chem 7: 10/15/21 13:21 10/15/21 13:21 Labs: Laboratory Results - last 24 hr 10/15/21 10/15/21 10/15/21 13:21 13:21 13:21 MCV 89.2 MCH 28.4 MCHC 31.9 RDW 15.9 Plt Count 156 L D MPV 11.2 Immature Gran % (Auto) 1.2 H Neut % (Auto) 89.2 H Lymph % (Auto) 1.3 L [place] % (Auto) 8.1 Eos % (Auto) 0.1 Baso % (Auto) 0.1 Lymph # (Auto) 0.2 L [place] # (Auto) 1.0 Eos # (Auto) 0.0 Baso # (Auto) 0.0 Abs Immat Gran (auto) 0.15 H Absolute Neuts (auto) 11.4 H Absolute Nucleated RBC 0.000 Nucleated RBC % (auto) 0.0 O2 Saturation ABG pH at Pt Temp ABG pCO2 at Pt Temp ABG pO2 at Pt Temp ABG HCO3 ABG Base Excess (Actual) Anion Gap 12 Estim Creat Clear Calc 37.5 Estimated GFR 52 POC Glucose Random Glucose 115 Lactic Acid Calcium 8.7 Total Bilirubin 0.4 Direct Bilirubin 0.2 AST 20 D ALT 22 Alkaline Phosphatase 67 Troponin I High Sens 20.3 B-Natriuretic Peptide 82 Total Protein 5.9 L Albumin 3.3 L Lipase 13 Urine Color Urine Appearance Urine pH Ur Specific [place] Urine Protein Urine Glucose (UA) Urine Ketones Urine Blood Urine Nitrite Ur Leukocyte Esterase Urine RBC Urine WBC Ur Squamous Epith Cells Urine Bacteria Influenza Type A (PCR) Influenza Type B (PCR) RSV RNA Qual (PCR) SARS-CoV-2 RNA (RT-PCR) 10/15/21 10/15/21 10/15/21 13:21 13:59 13:59 MCV MCH MCHC RDW Plt Count MPV Immature Gran % (Auto) Neut % (Auto) Lymph % (Auto) [place] % (Auto) Eos % (Auto) Baso % (Auto) Lymph # (Auto) [place] # (Auto) Eos # (Auto) Baso # (Auto) Abs Immat Gran (auto) Absolute Neuts (auto) Absolute Nucleated RBC Nucleated RBC % (auto) O2 Saturation ABG pH at Pt Temp ABG pCO2 at Pt Temp ABG pO2 at Pt Temp ABG HCO3 ABG Base Excess (Actual) Anion Gap Estim Creat Clear Calc Estimated GFR POC Glucose Random Glucose Lactic Acid 1.6 Calcium Total Bilirubin Direct Bilirubin AST ALT Alkaline Phosphatase Troponin I High Sens B-Natriuretic Peptide Total Protein Albumin Lipase Urine Color YELLOW Urine Appearance CLEAR Urine pH 7.0 Ur Specific [place] 1.010 Urine Protein NEG Urine Glucose (UA) NEG Urine Ketones NEG Urine Blood TRACE Urine Nitrite NEG Ur Leukocyte Esterase NEG Urine RBC 0-2 Urine WBC 0 Ur Squamous Epith Cells NONE Urine Bacteria NONE Influenza Type A (PCR) NEGATIVE Influenza Type B (PCR) NEGATIVE RSV RNA Qual (PCR) NEGATIVE SARS-CoV-2 RNA (RT-PCR) NEGATIVE 10/15/21 10/15/21 14:18 14:22 MCV MCH MCHC RDW Plt Count MPV Immature Gran % (Auto) Neut % (Auto) Lymph % (Auto) [place] % (Auto) Eos % (Auto) Baso % (Auto) Lymph # (Auto) [place] # (Auto) Eos # (Auto) Baso # (Auto) Abs Immat Gran (auto) Absolute Neuts (auto) Absolute Nucleated RBC Nucleated RBC % (auto) O2 Saturation 87.0 ABG pH at Pt Temp 7.45 ABG pCO2 at Pt Temp 48 H ABG pO2 at Pt Temp 59 L ABG HCO3 33 H ABG Base Excess (Actual) 8.1 Anion Gap Estim Creat Clear Calc Estimated GFR POC Glucose 101 Random Glucose Lactic Acid Calcium Total Bilirubin Direct Bilirubin AST ALT Alkaline Phosphatase Troponin I High Sens B-Natriuretic Peptide Total Protein Albumin Lipase Urine Color Urine Appearance Urine pH Ur Specific [place] Urine Protein Urine Glucose (UA) Urine Ketones Urine Blood Urine Nitrite Ur Leukocyte Esterase Urine RBC Urine WBC Ur Squamous Epith Cells Urine Bacteria Influenza Type A (PCR) Influenza Type B (PCR) RSV RNA Qual (PCR) SARS-CoV-2 RNA (RT-PCR) Imaging Radiologist's Impressions: Impressions Chest X-Ray 10/15/21 13:43 IMPRESSION: Bilateral bronchial wall thickening at the lung bases and probable left base bronchopneumonia. Head CT 10/15/21 16:42 IMPRESSION: -No intracranial hemorrhage, hydrocephalus, or mass effect. -Nonspecific hypodensity left parietal white matter under 1.5 cm of uncertain chronicity. This could be further assessed with MRI without and with gadolinium. -Opacified right mastoid air cells. No fluid levels or bony destructive process. Sinuses and middle ears clear. Assessment and Plan (1) Bronchopneumonia: Status: Acute Plan 86 year old man admitted with HCAP Sepsis secondary to HCAP Fever, tachycardia, tachypnea, normal lactic acid Vancomycin and zosyn duonebs Oxygen supplementation Follow cx Acute on chronic hypoxic respiratory failure secondary to HCAP Continue increase in oxygen treatment as above New onset seizure ? secondary to HCAP Neuro consult EEG seizure precautions PAF Amiodarone warfarin follow PT/INR HDL statin GERD PPI Hypothyroiism levothyroxine DVT prophylaxis with warfarin attending Dr. Perez full code likely 2 midnight for treatment of acute on chronic resp failure from HCAP necesitating IV abx Quality Stroke Does the patient have a stroke diagnosis?: No VTE Prior VTE?: No VTE Risk Level:: Medical - moderate - high VTE Device Contraindication: Treatment Not Indicated VTE Drug Contraindication: N/A - Med Ordered
--- NOTE | 2021-10-15 18:00 | PHA.MEDREC ---
Pharmacy Consult ? Medication Reconciliation Pharmacy has completed the medication reconciliation. Pt states that he has two days left on both his prednisone taper and cefuroxime.
--- NOTE | 2021-10-15 18:23 | PHA.PROG ---
Admission Date/Time: October 15, 2021 17:51 Indication: Weight in k.9 kg Adjusted body weight in Kg: [place] body weight in Kg: Obesity Dosing Indication % IBW: Serum Creatinine - Last 168 Hours 10/15/21 13:21 Creatinine 1.30 Estimated CrCl and GFR - Last 168 Hours 10/15/21 13:21 Estim Creat Clear Calc 37.5 Estimated GFR 52 Vancomycin Loading Dose: 1500 MG Current Vancomycin Dosing Regimen: Vancomycin Monitoring using AUC goal of 400 - 600 range with trough as surrogate marker: Date and Time for next Vancomycin Level to be drawn: Pharmacist Comments on Vancomycin Plan: 1500 mg, then 1 gm q24h predicted auc after 48 hr 405 trough 12.7 Vancomycin dosing will take advantage of [employer] as a clinical decision support tool that uses Bayesian modeling to calculate individual patient's pharmacokinetic parameters and forecast the patient's drug concentration time course with the target goal AUC 24 range of 400 - 600 mg/L/hr.
[2021-10-15 18:54] LABS: ABG Refer to POC result
--- NOTE | 2021-10-15 19:03 | PC.NURSE ---
Addendum entered by Thea Mckeon 10/16/21 07:07: report given to GENNARO Villalobos Addendum entered by Thea Mckeon 10/15/21 23:51: per DR. Farley, to hold night time dose of warfarin 2.5, pt INR 5.5. Addendum entered by Thea Mckeon 10/15/21 19:10: pt is alert and oriented. pt on continuous cardiac ,monitoring. denies any chest pain or sob. resting in bed comfortably Original Note: report received from GENNARO George
[2021-10-15] MEDS: 0.9 % Sodium Chloride 1,000 ML 75 ML IVCONT (20:08)
[2021-10-15] MEDS: vancomycin HCL 1,500 MG in 0.9 % Sodium Chloride 500 ML 333.33 MG IV (21:30)
[2021-10-15] MEDS: Atorvastatin Calcium 20 MG TABLET PO (22:19)
[2021-10-15] MEDS: Mirtazapine 15 MG TABLET PO (22:19)
[2021-10-15] MEDS: Omeprazole 40 MG CAPSULE.DR PO (22:20)
[2021-10-15] MEDS: Magnesium Oxide 400 MG TABLET PO (22:20)
[2021-10-15] MEDS: Furosemide 40 MG TABLET PO (22:20)
[2021-10-15] MEDS: guaiFENesin DM 600/30 1 TAB TAB.ER.12H PO ×2 (22:40→22:42)
[2021-10-15 23:29] LABS: Prothrombin Time 64.3 SEC (9.9-13.0)
[2021-10-15 23:44] LABS: INTERNATIONAL NORM RATIO 5.5 (0.9-1.1)
[2021-10-16] VITALS (12 sets, daily range): BP systolic 107–133; BP diastolic 57–71; PULSE 65–90; RESP 14–25; TEMP 36.2–38.1; O2SAT 92–98
--- NOTE | 2021-10-16 | EEG_ITS ---
This is a 16-channel EEG with an EKG lead. The patient is reported awake during the tracing. Background EEG rhythm is low amplitude fast with frequent muscle and lead artifacts. No obvious asymmetry paroxysmal tendency or focal activity noted. Photic stimulation does not produce any significant abnormality. Hyperventilation is not performed. Cardiac lead does not reveal any significant abnormality. IMPRESSION: No significant abnormality noted on this EEG. MD TAINA Page/KIRILL / [id number]
[2021-10-16] MEDS: Piperacillin Sodium/Tazobactam 3.375 GM in 0.9 % Sodium Chloride 50 ML IV ×2 (04:58→09:01)
[2021-10-16 07:43] LABS: Basophils Percent Auto 0.1 % (0-2); Hematocrit 39.8 % (42.0-52.0); Hemoglobin 12.7 g/dl (14.0-18.0); Imm Gran Abs Auto 0.11 X10*3/uL (0.00-0.03); Imm Gran Pct Auto 0.8 % (0.0-0.4); Lymphocytes Absolute Auto 0.2 X10*3/uL (1.2-4.9); Lymphocytes Percent Auto 1.3 % (20-40); MANUAL DIFF FLAG SCAN; Mean Corpuscular HGB Conc 31.9 g/dl (31.0-36.0); Mean Corpuscular Hemoglobin 28.5 pg (27.0-33.0); Mean Corpuscular Volume 89.4 fL (80.0-98.0); Monocytes Absolute Auto 0.6 X10*3/uL (0.1-1.2); Monocytes Percent Auto 4.1 % (2-11); Neutrophils Absolute Auto 13.2 x10*3/uL (2.0-8.3); Neutrophils Percent Auto 93.7 % (45-73); Platelet Count 130 X10*3/uL (160-400); Red Blood Count 4.45 X10*6/uL (4.60-5.80); SCAN SMEAR FLAG 1; White Blood Count 14.1 X10*3/uL (4.8-10.8)
[2021-10-16 07:55] LABS: Glucose, Whole Blood 134 mg/dL (60-115)
[2021-10-16 07:55] LABS: Prothrombin Time 59.4 SEC (9.9-13.0)
--- NOTE | 2021-10-16 07:55 | PC.NURSE ---
pt a/o pt is on 6l aerosol mask 92%, attempted to feed pt, pt was placed on a nc at 6l, pt desated to low 80's. pt was return to the aerosol mask at 6l - 92%. poc taken 134. ivf infusing as ordered.
[2021-10-16 07:59] LABS: Anion Gap 14 (12-20); Blood Urea Nitrogen 34 mg/dL (9-16); Calcium 8.4 mg/dL (8.4-10.2); Carbon Dioxide 29 mmol/L (22-29); Chloride 99 mmol/L (96-108); Creatinine Clr Calc Pharmacy 41.3; Estimated Glomerular Filt Rate 59; Glucose Random 127 mg/dL (60-115); Potassium 3.5 mmol/L (3.3-5.1); Sodium 138 mmol/L (135-145)
[2021-10-16 08:34] LABS: SLIDE REVIEW VERIFIED
--- NOTE | 2021-10-16 08:48 | PC.NURSE ---
rn to rn report given to adriana escobar to be transferred to overflow unit prior to going for an eeg.
--- NOTE | 2021-10-16 08:52 | P.CNNE_ITS ---
History of Present Illness Data of Consult Service Date: 10/16/21 Primary Care Provider: Vince Neal MD [facility] Reason for consult: Seizure 86 years old man came to hospital with shortness of breath and was diagnosed with pneumonia and was being a probe did N/C room when he had a generalized seizure. The he felt a flush type of feeling before that and and he shook all over seizures. When I talked to him in the morning he did not remember what had happened and could not provide any detail. Review of Systems Review of Systems: Shortness of breath but no headache or trauma recent PMFSH Past Medical History Medical History COPD (chronic obstructive pulmonary disease) Esophageal dysphagia Essential hypertension History of hiatal hernia Left bundle branch block NICM (nonischemic cardiomyopathy) Nonrheumatic aortic (valve) stenosis Paroxysmal atrial fibrillation Family History Family History Father No problems noted. Mother No problems noted. Surgical History Surgical History History of inguinal hernia repair Social History Social History Household Members: Spouse Housing: House Do you presently have visiting nurse or other home services: Yes Alcohol intake: current Alcohol intake frequency: 0-2 drinks per day Patient Tobacco Use Status: Former Tobacco user Use of substances other than those prescribed or required for medical reasons: No Advance Directives: Yes Advance Directives Information Provided: No Advance Directives on File: No service: No Current occupational status: retired Meds Allergies Allergy/AdvReac Type Severity Reaction Status Date / Time No Known Allergies Allergy Verified 10/15/21 13:12 Active Medications: Current Medications Acetaminophen (Acetaminophen 325 Mg Tablet) 650 mg PO Q6H PRN PRN Reason: Pain, Mild (Pain Scale 1-3) Allopurinol (Allopurinol 100 Mg Tablet) 50 mg PO DAILY [facility] Amiodarone HCl (Amiodarone Hcl 200 Mg Tablet) 100 mg PO DAILY [facility] Atorvastatin Calcium (Atorvastatin Calcium 20 Mg Tablet) 20 mg PO BEDTIME [facility] Last Admin: 10/15/21 22:19 Dose: 20 mg Documented by: Docusate Sodium (Docusate Sodium 100 Mg Capsule) 100 mg PO BID PRN PRN Reason: Constipation Fluticasone/Vilanterol (Fluticasone/Vilanterol 200/25 Blst.W.Dev) 1 puff INHALE RDAILY [facility] Last Admin: 10/16/21 08:34 Dose: Not Given Documented by: Furosemide (Furosemide 40 Mg Tablet) 40 mg PO BID [facility]; Protocol Last Admin: 10/15/21 22:20 Dose: 40 mg Documented by: Guaifenesin/Dextromethorphan (Guaifenesin Dm 600/30 1 Tab Tab.Er.12h) 1 tab PO Q12H [facility] Last Admin: 10/15/21 22:42 Dose: 1 tab Documented by: Vancomycin HCl 1,000 mg/ (Sodium Chloride) 270 mls @ 270 mls/hr IV Q24H [facility] Piperacillin Sod/Tazobactam (Sod 3.375 gm/ Sodium Chloride) 50 mls @ 100 mls/hr IV Q6H [facility] Last Infusion: 10/16/21 05:57 Dose: Infused Documented by: Sodium Chloride (Ns) 1,000 mls @ 75 mls/hr IVCONT .[id number] [facility] Last Admin: 10/15/21 20:08 Dose: 75 mls/hr Documented by: Levothyroxine Sodium (Levothyroxine Sodium 75 Mcg Tablet) 75 mcg PO DAILY [facility] Magnesium Oxide (Magnesium Oxide 400 Mg Tablet) 400 mg PO BID [facility] Last Admin: 10/15/21 22:20 Dose: 400 mg Documented by: Mirtazapine (Mirtazapine 15 Mg Tablet) 15 mg PO BEDTIME [facility] Last Admin: 10/15/21 22:19 Dose: 15 mg Documented by: Omeprazole (Omeprazole 40 Mg Capsule.Dr) 40 mg PO BID [facility] Last Admin: 10/15/21 22:20 Dose: 40 mg Documented by: Ondansetron HCl (Ondansetron Hcl 4 Mg/2 Ml Vial) 4 mg IVPUSH Q8H PRN PRN Reason: Nausea and Vomiting Pharmacy Consult (Consult Rx Vancomycin Dosing) 1 each MISCELLANE DAILY PRN PRN Reason: Consult order Potassium Chloride (Potassium Chloride Er 20 Meq Tab.Er.Prt) 20 meq PO DAILY [facility] Sodium Chloride (0.9 % Sodium Chloride Flush 3 Ml Syringe) 3 ml IVFLUSH QSHIFT [facility] Last Admin: 10/15/21 23:59 Dose: Not Given Documented by: Warfarin Sodium (Warfarin Sodium 2.5 Mg Tablet) 2.5 mg PO DAILY@1800 [facility] Home Medications Medication Instructions Recorded Confirmed Last Taken Type allopurinol 300 mg tablet 300 mg PO DAILY 07/16/20 10/15/21 10/15/21 History ipratropium 0.5 mg-albuterol 3 mg 3 ml INHALATION QID PRN 07/16/20 10/15/21 10/15/21 History (2.5 mg base)/3 mL nebulization soln levothyroxine 75 mcg tablet 75 mcg PO DAILY 07/16/20 10/15/21 10/15/21 History mirtazapine 15 mg tablet 15 mg PO BEDTIME 07/16/20 10/15/21 10/14/21 History potassium chloride 20 mEq 20 meq PO DAILY 07/16/20 10/15/21 10/15/21 History tablet,extended release(part/cryst) simvastatin 40 mg tablet 40 mg PO BEDTIME 07/16/20 10/15/21 10/14/21 History warfarin 2.5 mg tablet 2.5 mg PO BEDTIME 07/16/20 10/15/21 10/14/21 History omeprazole 40 mg capsule,delayed 40 mg PO BID cap 01/23/21 10/15/21 10/15/21 History release albuterol sulfate 2.5 mg INHALATION Q6H PRN 09/19/21 10/15/21 10/15/21 History magnesium oxide 400 mg PO BID 09/19/21 10/15/21 10/15/21 History albuterol sulfate 90 mcg/actuation 1 inh INHALATION Q4H PRN 10/15/21 10/15/21 10/15/21 History aerosol inhaler (Ventolin HFA) amiodarone 200 mg tablet 0.5 tab PO DAILY 10/15/21 10/15/21 10/15/21 History cefuroxime axetil 500 mg tablet 1 tab PO BID 10/15/21 10/15/21 10/15/21 History dextromethorphan-guaifenesin 30 1 tab PO Q12H 10/15/21 10/15/21 10/15/21 History mg-600 mg tablet extended [id number] hr (Mucinex DM) docusate sodium 100 mg capsule 100 mg PO BID PRN 10/15/21 10/15/21 Unknown His tory (Colace) furosemide 40 mg tablet 1 tab PO BID 10/15/21 10/15/21 10/15/21 History Physical Exam Vital Signs: Vital Signs: Last Vital Signs Temp 97.5 F 10/16/21 07:23 Pulse 67 10/16/21 07:23 Resp 20 10/16/21 07:23 BP 130/62 10/16/21 07:23 Pulse Ox 98 10/16/21 07:23 Oxygen Flow Rate 4 10/15/21 13:12 BMI result Body Mass Index 21.4 Neuro: Other: He was alert and awake with normal spontaneity of speech fluency comprehension and affect. He was not in distress. Pupils were round reactive to light. Extraocular muscles were intact. Visual navarrete are full. Face was symmetrical. There was no obvious focal weakness. Plantars were flexors. Reflexes were ab sent. Results Labs CBC & Chem 7: 10/16/21 07:19 10/16/21 07:19 Labs: Short CBC 10/15/21 10/16/21 Range/Units 13:21 07:19 WBC 12.8 H 14.1 H (4.8-10.8) X10*3/uL Hgb 13.1 L 12.7 L (14.0-18.0) g/dl Hct 41.1 L 39.8 L (42.0-52.0) % Plt Count 156 L D 130 L (160-400) X10*3/uL BMP 10/15/21 10/16/21 13:21 07:19 Sodium 137 138 Potassium 3.6 3.5 Chloride 97 99 Carbon Dioxide 32 H 29 BUN 37 H 34 H Creatinine 1.30 1.18 Calcium 8.7 8.4 Liver Function 10/15/21 Range/Units 13:21 Total Bilirubin 0.4 (0.0-1.0) mg/dL Direct Bilirubin 0.2 (0.0-0.5) mg/dL AST 20 D (5-37) U/L ALT 22 (0-40) U/L Alkaline Phosphatase 67 (39-117) U/L Albumin 3.3 L (3.5-5.0) g/dL Urine 10/15/21 Range/Units 13:59 Urine Color YELLOW Urine Appearance CLEAR Urine pH 7.0 (5.0-8.0) Ur Specific [place] 1.010 (1.005-1.025) Urine Protein NEG (NEG-TRACE) MG/DL Urine Glucose (UA) NEG (NEG) MG/DL Noncontrast head CT revealed [id number] diffuse cerebral atrophy and moderate chronic microvascular ischemic changes. Assessment and Plan (1) Seizure: Status: Acute 86 years old man who apparently had a generalized convulsion in emergency room while he was being treated for pneumonia. Initially his temperature was slightly elevated but now it was normal. He did not have any headache or neck pain or any meningeal signs. There was no significant mental confusion other than the fact that he did not remember what happened. With these facts and possible abnormal chest x-ray I would recommend continuing treatment for pn eumonia and not do lumbar puncture. As far as seizure disorder is concerned, routine EEG is recommended. In his age group with microvascular disease of brain seizure disorder was not uncommon but might have been triggered by the overall stress of medical illness. No antiepileptic is recommended illness EEG revealed epileptic tendency. Procedures Date of Service Date of Service: 10/16/21
[2021-10-16] MEDS: Warfarin Sodium 2.5 MG TABLET PO (08:56)
[2021-10-16] MEDS: 0.9 % Sodium Chloride Flush 3 ML SYRINGE IVFLUSH ×3 (08:57→20:37)
[2021-10-16] MEDS: Levothyroxine Sodium 75 MCG TABLET PO (08:59)
[2021-10-16] MEDS: Potassium Chloride ER 20 MEQ TAB.ER.PRT PO (08:59)
[2021-10-16] MEDS: Amiodarone HCL 200 MG TABLET 100 MG PO (08:59)
[2021-10-16] MEDS: Furosemide 40 MG TABLET PO ×2 (09:00→20:37)
[2021-10-16] MEDS: Omeprazole 40 MG CAPSULE.DR PO ×2 (09:00→20:38)
[2021-10-16] MEDS: allopurinoL 100 MG TABLET 50 MG PO (09:00)
[2021-10-16] MEDS: Magnesium Oxide 400 MG TABLET PO ×2 (09:00→20:37)
--- NOTE | 2021-10-16 09:24 | PC.NURSE ---
pt sent to eeg then will go to the overflow unit bed 4, luz aden aware. pt made npo, upper congestion and some diffiulty with taking his pills one and at time.
--- NOTE | 2021-10-16 09:55 | MHC.CM.PN ---
CM ATTEMPTED TO SEE PT X 2 INITIALLY PT WAS RECEIVING NURSING CARE ON SECOND ATTEMPT HE WAS OUT OF THE ROOM
[2021-10-16] MEDS: methylPREDNISolone Sod Succ 40 MG/ML VIAL IVPUSH ×2 (11:21→20:39)
--- NOTE | 2021-10-16 11:38 | PHA.PROG ---
Admission Date/Time: October 15, 2021 17:51 Indication: Sepsis secondary to HCAP Weight in k.9 kg Adjusted body weight in K.6 [place] body weight in K.4 Obesity Dosing Indication % IBW: Serum Creatinine - Last 168 Hours 10/15/21 10/16/21 13:21 07:19 Creatinine 1.30 1.18 Estimated CrCl and GFR - Last 168 Hours 10/15/21 10/16/21 13:21 07:19 Estim Creat Clear Calc 37.5 41.3 Estimated GFR 52 59 Vancomycin Loading Dose: 1500 mg Current Vancomycin Dosing Regimen: 1000 mg Q24H Date and Time for next Vancomycin Level to be drawn: 10/17 @ 1800 Pharmacist Comments on Vancomycin Plan: Continue current regimen Renal function is stable. Pharmacy to continue to monitor Ayanna Shine PharmD Vancomycin dosing will take advantage of [employer] as a clinical decision support tool that uses Bayesian modeling to calculate individual patient's pharmacokinetic parameters and forecast the patient's drug concentration time course with the target goal AUC 24 range of 400 - 600 mg/L/hr.
[2021-10-16] MEDS: Albuterol/Iprat 2.5/0.5MG 3 ML AMPUL.NEB INHALE ×3 (12:22→20:41)
--- NOTE | 2021-10-16 12:31 | MHC.SL.SWA ---
Speech Pathologist Impression: Oropharyngeal dysphagia Risk of Aspiration Due to: Medically Fragile Dysphasia Diet Status: Upgrade Liquid Consistency and Strategies for Safe Swallow: Liquid Intake Recommendation: Thin Liquid Intake Strategies: Small Sips Solid Food Consistency: Dietary Recommendations: Chopped/Advanced (NDD3) Additional Modifications to Solid Foods: Recommend CHOPPED/ADVANCED (NDD3) solids in sauce/gravy and THIN liquids, pills CRUSHED in PUREE. Recommend strict aspiration precautions and TOTAL SUPERVISION during PO intake to monitor tolerance, 02 levels during PO intake. Provided education to patient and RE: aspiration precautions. Discussed with RN while in ED. Sent [place] Switch Message update to RN, , RD. ORDER PICKER/ASSEMBLER will continue to follow. Oral Medication Intake: Crushed with Puree Please contact the pharmacy regarding appropriate crushable or liquid drug formulations that are available whenever modified delivery is recommended. Compensatory Strategies and Precautions to be Taken for Safe Swallow: Sitting Upright (90 deg) Small Bites and Sips Alternate Liquids/Solids Rate of Ingestion Change Avoid Specific Foods Supervision While Eating and Drinking for Safe Swallow: Total Supervision (1:1) Foods to Avoid: Difficult to chew solids Swallowing Recommended Treatments: Recommendation for Speech: Inpatient Speech Therapy Comment: ORDER PICKER/ASSEMBLER will continue to follow Frequency/Duration: M-F Date Range for Service Req: Timeline to reassess: Traffic Workforce Representative Clinican/Clinical Fellow: No Supervisory Statement: I have reviewed and agree with the student/clinical fellow's documentation: N/A Speech Language Pathologist: Ashlyn Garcia M.A., CCC-ORDER PICKER/ASSEMBLER
--- NOTE | 2021-10-16 13:18 | HO.PM.IMPN ---
Subjective Subjective Date of Service: 10/16/21 Interval History: cc: sob interval history:improved symptoms Cardiovascular Cardiovascular: Reports no additional cardiovascular complaints Gastrointestinal Gastrointestinal: Reports no additional gastrointestinal complaints Physical Exam Vital Signs: Vital Signs: Last Vital Signs Temp 98.5 F 10/16/21 10:43 Pulse 71 10/16/21 12:22 Resp 22 H 10/16/21 12:22 BP 133/69 10/16/21 10:43 Pulse Ox 96 10/16/21 10:43 Oxygen Flow Rate 4 10/15/21 13:12 BMI result Body Mass Index 21.4 General: AO X 3, tachypneic, ill appearing Resp: diminished bilateral, no accessory muscles used CVS: S1,S2,RRR GI: soft, non tender, non distended Neuro: motor grossly intact, alert Psych: appropriate affect, appropriate insight Objective Data Active Medications Acetaminophen (Acetaminophen 325 Mg Tablet) 650 mg PO Q6H PRN PRN Reason: Pain, Mild (Pain Scale 1-3) Albuterol/Ipratropium (Albuterol/Iprat 2.5/0.5mg 3 Ml Ampul.Neb) 3 ml INHALE RQ4H WHILE AWAKE [facility] Last Admin: 10/16/21 12:22 Dose: 3 ml Documented by: BEE Allopurinol (Allopurinol 100 Mg Tablet) 50 mg PO DAILY [facility] Last Admin: 10/16/21 09:00 Dose: 50 mg Documented by: BEBE Amiodarone HCl (Amiodarone Hcl 200 Mg Tablet) 100 mg PO DAILY [facility] Last Admin: 10/16/21 08:59 Dose: 100 mg Documented by: BEBE Atorvastatin Calcium (Atorvastatin Calcium 20 Mg Tablet) 20 mg PO BEDTIME [facility] Last Admin: 10/15/21 22:19 Dose: 20 mg Documented by: LACEY-ANICL Docusate Sodium (Docusate Sodium 100 Mg Capsule) 100 mg PO BID PRN PRN Reason: Constipation Fluticasone/Vilanterol (Fluticasone/Vilanterol 200/25 Blst.W.Dev) 1 puff INHALE RDAILY [facility] Last Admin: 10/16/21 08:34 Dose: Not Given Documented by: BEE Non-Admin Reason: Med Not Available Furosemide (Furosemide 40 Mg Tablet) 40 mg PO BID [facility]; Protocol Last Admin: 10/16/21 09:00 Dose: 40 mg Documented by: FABIENNEOC Guaifenesin/Dextromethorphan (Guaifenesin Dm 600/30 1 Tab Tab.Er.12h) 1 tab PO Q12H [facility] Last Admin: 10/15/21 22:40 Dose: 1 tab Documented by: N-ANICL Levothyroxine Sodium (Levothyroxine Sodium 75 Mcg Tablet) 75 mcg PO DAILY [facility] Last Admin: 10/16/21 08:59 Dose: 75 mcg Documented by: SCOC Magnesium Oxide (Magnesium Oxide 400 Mg Tablet) 400 mg PO BID [facility] Last Admin: 10/16/21 09:00 Dose: 400 mg Documented by: FABIENNEOC Methylprednisolone Sodium Succinate (Methylprednisolone Sod Succ 40 Mg/Ml Vial) 40 mg IVPUSH Q12H [facility] Last Admin: 10/16/21 11:21 Dose: 40 mg Documented by: CHARTN Mirtazapine (Mirtazapine 15 Mg Tablet) 15 mg PO BEDTIME [facility] Last Admin: 10/15/21 22:19 Dose: 15 mg Documented by: N-ANICL Omeprazole (Omeprazole 40 Mg Capsule.Dr) 40 mg PO BID [facility] Last Admin: 10/16/21 09:00 Dose: 40 mg Documented by: FABIENNEOC Ondansetron HCl (Ondansetron Hcl 4 Mg/2 Ml Vial) 4 mg IVPUSH Q8H PRN PRN Reason: Nausea and Vomiting Potassium Chloride (Potassium Chloride Er 20 Meq Tab.Er.Prt) 20 meq PO DAILY [facility] Last Admin: 10/16/21 08:59 Dose: 20 meq Documented by: FABIENNEOC Sodium Chloride (0.9 % Sodium Chloride Flush 3 Ml Syringe) 3 ml IVFLUSH QSHIFT [facility] Last Admin: 10/16/21 08:57 Dose: 3 ml Documented by: BEBE Warfarin Sodium (Warfarin Sodium 2.5 Mg Tablet) 2.5 mg PO DAILY@1800 [facility] Labs CBC & Chem 7: 10/16/21 07:19 10/16/21 07:19 Labs: Laboratory Results - last 24 hr 10/15/21 10/15/21 10/15/21 13:21 13:21 13:21 MCV 89.2 MCH 28.4 MCHC 31.9 RDW 15.9 Plt Count 156 L D MPV 11.2 Immature Gran % (Auto) 1.2 H Neut % (Auto) 89.2 H Lymph % (Auto) 1.3 L [place] % (Auto) 8.1 Eos % (Auto) 0.1 Baso % (Auto) 0.1 Lymph # (Auto) 0.2 L [place] # (Auto) 1.0 Eos # (Auto) 0.0 Baso # (Auto) 0.0 Abs Immat Gran (auto) 0.15 H Absolute Neuts (auto) 11.4 H Absolute Nucleated RBC 0.000 Nucleated RBC % (auto) 0.0 Smear Tech's Comments PT INR O2 Saturation ABG pH at Pt Temp ABG pCO2 at Pt Temp ABG pO2 at Pt Temp ABG HCO3 ABG Base Excess (Actual) Anion Gap 12 Estim Creat Clear Calc 37.5 Estimated GFR 52 POC Glucose Random Glucose 115 Lactic Acid Calcium 8.7 Total Bilirubin 0.4 Direct Bilirubin 0.2 AST 20 D ALT 22 Alkaline Phosphatase 67 Troponin I High Sens 20.3 B-Natriuretic Peptide 82 Total Protein 5.9 L Albumin 3.3 L Lipase 13 Urine Color Urine Appearance Urine pH Ur Specific [place] Urine Protein Urine Glucose (UA) Urine Ketones Urine Blood Urine Nitrite Ur Leukocyte Esterase Urine RBC Urine WBC Ur Squamous Epith Cells Urine Bacteria Influenza Type A (PCR) Influenza Type B (PCR) RSV RNA Qual (PCR) SARS-CoV-2 RNA (RT-PCR) 10/15/21 10/15/21 10/15/21 13:21 13:59 13:59 MCV MCH MCHC RDW Plt Count MPV Immature Gran % (Auto) Neut % (Auto) Lymph % (Auto) [place] % (Auto) Eos % (Auto) Baso % (Auto) Lymph # (Auto) [place] # (Auto) Eos # (Auto) Baso # (Auto) Abs Immat Gran (auto) Absolute Neuts (auto) Absolute Nucleated RBC Nucleated RBC % (auto) Smear Tech's Comments PT INR O2 Saturation ABG pH at Pt Temp ABG pCO2 at Pt Temp ABG pO2 at Pt Temp ABG HCO3 ABG Base Excess (Actual) Anion Gap Estim Creat Clear Calc Estimated GFR POC Glucose Random Glucose Lactic Acid 1.6 Calcium Total Bilirubin Direct Bilirubin AST ALT Alkaline Phosphatase Troponin I High Sens B-Natriuretic Peptide Total Protein Albumin Lipase Urine Color YELLOW Urine Appearance CLEAR Urine pH 7.0 Ur Specific [place] 1.010 Urine Protein NEG Urine Glucose (UA) NEG Urine Ketones NEG Urine Blood TRACE Urine Nitrite NEG Ur Leukocyte Esterase NEG Urine RBC 0-2 Urine WBC 0 Ur Squamous Epith Cells NONE Urine Bacteria NONE Influenza Type A (PCR) NEGATIVE Influenza Type B (PCR) NEGATIVE RSV RNA Qual (PCR) NEGATIVE SARS-CoV-2 RNA (RT-PCR) NEGATIVE 10/15/21 10/15/21 10/15/21 14:18 14:22 23:01 MCV MCH MCHC RDW Plt Count MPV Immature Gran % (Auto) Neut % (Auto) Lymph % (Auto) [place] % (Auto) Eos % (Auto) Baso % (Auto) Lymph # (Auto) [place] # (Auto) Eos # (Auto) Baso # (Auto) Abs Immat Gran (auto) Absolute Neuts (auto) Absolute Nucleated RBC Nucleated RBC % (auto) Smear Tech's Comments PT 64.3 H INR 5.5 H* D O2 Saturation 87.0 ABG pH at Pt Temp 7.45 ABG pCO2 at Pt Temp 48 H ABG pO2 at Pt Temp 59 L ABG HCO3 33 H ABG Base Excess (Actual) 8.1 Anion Gap Estim Creat Clear Calc Estimated GFR POC Glucose 101 Random Glucose Lactic Acid Calcium Total Bilirubin Direct Bilirubin AST ALT Alkaline Phosphatase Troponin I High Sens B-Natriuretic Peptide Total Protein Albumin Lipase Urine Color Urine Appearance Urine pH Ur Specific [place] Urine Protein Urine Glucose (UA) Urine Ketones Urine Blood Urine Nitrite Ur Leukocyte Esterase Urine RBC Urine WBC Ur Squamous Epith Cells Urine Bacteria Influenza Type A (PCR) Influenza Type B (PCR) RSV RNA Qual (PCR) SARS-CoV-2 RNA (RT-PCR) 10/16/21 10/16/21 10/16/21 07:19 07:19 07:19 MCV 89.4 MCH 28.5 MCHC 31.9 RDW 16.0 Plt Count 130 L MPV 10.0 Immature Gran % (Auto) 0.8 H Neut % (Auto) 93.7 H Lymph % (Auto) 1.3 L [place] % (Auto) 4.1 Eos % (Auto) 0.0 Baso % (Auto) 0.1 Lymph # (Auto) 0.2 L [place] # (Auto) 0.6 Eos # (Auto) 0.0 Baso # (Auto) 0.0 Abs Immat Gran (auto) 0.11 H Absolute Neuts (auto) 13.2 H Absolute Nucleated RBC 0.000 Nucleated RBC % (auto) 0.0 Smear Tech's Comments VERIFIED PT 59.4 H INR 5.0 H* O2 Saturation ABG pH at Pt Temp ABG pCO2 at Pt Temp ABG pO2 at Pt Temp ABG HCO3 ABG Base Excess (Actual) Anion Gap 14 Estim Creat Clear Calc 41.3 Estimated GFR 59 POC Glucose Random Glucose 127 H Lactic Acid Calcium 8.4 Total Bilirubin Direct Bilirubin AST ALT Alkaline Phosphatase Troponin I High Sens B-Natriuretic Peptide Total Protein Albumin Lipase Urine Color Urine Appearance Urine pH Ur Specific [place] Urine Protein Urine Glucose (UA) Urine Ketones Urine Blood Urine Nitrite Ur Leukocyte Esterase Urine RBC Urine WBC Ur Squamous Epith Cells Urine Bacteria Influenza Type A (PCR) Influenza Type B (PCR) RSV RNA Qual (PCR) SARS-CoV-2 RNA (RT-PCR) 10/16/21 07:50 MCV MCH MCHC RDW Plt Count MPV Immature Gran % (Auto) Neut % (Auto) Lymph % (Auto) [place] % (Auto) Eos % (Auto) Baso % (Auto) Lymph # (Auto) [place] # (Auto) Eos # (Auto) Baso # (Auto) Abs Immat Gran (auto) Absolute Neuts (auto) Absolute Nucleated RBC Nucleated RBC % (auto) Smear Tech's Comments PT INR O2 Saturation ABG pH at Pt Temp ABG pCO2 at Pt Temp ABG pO2 at Pt Temp ABG HCO3 ABG Base Excess (Actual) Anion Gap Estim Creat Clear Calc Estimated GFR POC Glucose 134 H Random Glucose Lactic Acid Calcium Total Bilirubin Direct Bilirubin AST ALT Alkaline Phosphatase Troponin I High Sens B-Natriuretic Peptide Total Protein Albumin Lipase Urine Color Urine Appearance Urine pH Ur Specific [place] Urine Protein Urine Glucose (UA) Urine Ketones Urine Blood Urine Nitrite Ur Leukocyte Esterase Urine RBC Urine WBC Ur Squamous Epith Cells Urine Bacteria Influenza Type A (PCR) Influenza Type B (PCR) RSV RNA Qual (PCR) SARS-CoV-2 RNA (RT-PCR) Assessment and Plan (1) Seizure: Status: Acute Plan 86M presented iwth sob SIRS and acute on chronic hypoxic respriatory failure suspect acute copd decopmensation due to aspiraiton pnuemonitits steroids, bronchodilators, dc antibiotics, wean o2 as toelrated seizure eeg monitor neuro appreciated, no AED if eeg negative paroxysmal afib amio, coumadin, monitor inr hld statin gerd ppi hypothyroid synthroid reason for continued hospitalization: severely hypoxic Quality Stroke Does the patient have a stroke diagnosis?: No VTE Prior VTE?: No VTE Risk Level:: Medical - moderate - high VTE Device Contraindication: Treatment Not Indicated VTE Drug Contraindication: N/A - Med Ordered
[2021-10-16 13:53] LABS: Adenovirus PCR Not Detected (Not Detect.); Bordetella parapertussis PCR Not Detected (Not Detect.); Bordetella pertussis PCR Not Detected (Not Detect.); Chlamydia pneumoniae PCR Not Detected (Not Detect.); Coronavirus 229E PCR Not Detected (Not Detect.); Coronavirus HKU1 PCR Not Detected (Not Detect.); Coronavirus NL63 PCR Not Detected (Not Detect.); Coronavirus OC43 PCR Not Detected (Not Detect.); Human metapneumovirus PCR Detected (Not Detect.); Influenza A PCR Not Detected (Not Detect.); Influenza B PCR Not Detected (Not Detect.); Mycoplasma pneumoniae PCR Not Detected (Not Detect.); Parainfluenza 1 PCR Not Detected (Not Detect.); Parainfluenza 2 PCR Not Detected (Not Detect.); Parainfluenza 3 PCR Not Detected (Not Detect.); Parainfluenza 4 PCR Not Detected (Not Detect.); RSV PCR Not Detected (Not Detect.); Rhino/Enterovirus PCR Not Detected (Not Detect.); SARS-CoV-2 PCR Not Detected (Not Detect.)
--- NOTE | 2021-10-16 14:55 | PC.NURSE ---
Patient tranferred to ED overflow at 1030. Patient alert and oriented x3. SOB noted, tachypneic 30s, which improved overtime. Lung sound expiratory rhonchi noted. Speech in to assess patient, adjusted from aerosol oxygen mask to Kim cannula. Sating 95-90% on 8L Kim cannula. Scheduled updraft treatments ordered. Remaining vitals WNL. Patient voiding in urinal, had BM using bedpan. Patient feeling well has no complaints.
--- NOTE | 2021-10-16 15:52 | PC.NURSE ---
patient a&ox3, productive cough, patient denies pain or discomfort, currently on bautista 8 liters- o2 sat 95%, vss, call aldana within reach, will continue to monitor.
[2021-10-16] MEDS: Atorvastatin Calcium 20 MG TABLET PO (20:37)
[2021-10-16] MEDS: guaiFENesin DM 600/30 1 TAB TAB.ER.12H PO (20:37)
[2021-10-16] MEDS: Mirtazapine 15 MG TABLET PO (20:38)
[2021-10-17] VITALS (9 sets, daily range): BP systolic 97–147; BP diastolic 54–79; PULSE 71–84; RESP 16–20; TEMP 36–37.4; O2SAT 90–96
[2021-10-17] MEDS: Albuterol/Iprat 2.5/0.5MG 3 ML AMPUL.NEB INHALE ×3 (07:50→19:22)
[2021-10-17 07:57] LABS: Hematocrit 38.7 % (42.0-52.0); Hemoglobin 12.3 g/dl (14.0-18.0); Mean Corpuscular HGB Conc 31.8 g/dl (31.0-36.0); Mean Platelet Volume 10.1 fL (9.4-12.4); Platelet Count 134 X10*3/uL (160-400); Red Cell Distribution Width 16.3 % (11.0-16.0); White Blood Count 13.9 X10*3/uL (4.8-10.8)
[2021-10-17 08:10] LABS: INTERNATIONAL NORM RATIO 4.7 (0.9-1.1); Prothrombin Time 54.8 SEC (9.9-13.0)
[2021-10-17 08:17] LABS: Anion Gap 15 (12-20); Blood Urea Nitrogen 32 mg/dL (9-16); Calcium 8.4 mg/dL (8.4-10.2); Carbon Dioxide 31 mmol/L (22-29); Chloride 97 mmol/L (96-108); Creatinine Clr Calc Pharmacy 46.4; Estimated Glomerular Filt Rate > 60; Glucose Fasting 136 mg/dL (60-99); Potassium 2.6 mmol/L (3.3-5.1); Sodium 140 mmol/L (135-145)
[2021-10-17] MEDS: methylPREDNISolone Sod Succ 40 MG/ML VIAL IVPUSH ×2 (08:39→21:07)
[2021-10-17] MEDS: guaiFENesin DM 600/30 1 TAB TAB.ER.12H PO ×2 (08:41→21:07)
[2021-10-17] MEDS: Potassium Chloride ER 20 MEQ TAB.ER.PRT PO (08:41)
[2021-10-17] MEDS: 0.9 % Sodium Chloride Flush 3 ML SYRINGE IVFLUSH ×3 (08:42→21:08)
[2021-10-17] MEDS: Amiodarone HCL 200 MG TABLET 100 MG PO (08:42)
[2021-10-17] MEDS: Levothyroxine Sodium 75 MCG TABLET PO (08:42)
[2021-10-17] MEDS: Magnesium Oxide 400 MG TABLET PO ×2 (08:42→21:08)
[2021-10-17] MEDS: allopurinoL 100 MG TABLET 50 MG PO (08:42)
[2021-10-17] MEDS: Furosemide 40 MG TABLET PO ×2 (08:42→21:07)
[2021-10-17] MEDS: Omeprazole 40 MG CAPSULE.DR PO ×2 (08:42→21:07)
[2021-10-17] MEDS: Ampicillin Sodium/Sulbactam Na 1.5 GM in 0.9 % Sodium Chloride 100 ML IV ×3 (09:39→21:07)
--- NOTE | 2021-10-17 09:50 | P.PNIM_ITS ---
Subjective Subjective Date of Service: 10/17/21 Interval History: cc: sob interval history:improved symptoms Cardiovascular Cardiovascular: Reports no additional cardiovascular complaints Respiratory Respiratory: Reports no additional respiratory complaints Physical Exam Vital Signs: Vital Signs: Last Vital Signs Temp 97.1 F 10/17/21 07:45 Pulse 76 10/17/21 07:50 Resp 18 10/17/21 07:50 BP 122/60 10/17/21 07:45 Pulse Ox 94 10/17/21 07:45 Oxygen Flow Rate 4 10/15/21 13:12 BMI result Body Mass Index 21.4 General: AO X 3, no acute distress Resp:? diminished bilateral, no accessory muscles used CVS: S1,S2,RRR GI: soft, non tender, non distended Neuro:? motor grossly intact, alert Psych: appropriate affect, appropriate insight? Objective Data Active Medications Acetaminophen (Acetaminophen 325 Mg Tablet) 650 mg PO Q6H PRN PRN Reason: Pain, Mild (Pain Scale 1-3) Albuterol/Ipratropium (Albuterol/Iprat 2.5/0.5mg 3 Ml Ampul.Neb) 3 ml INHALE RQ4H WHILE AWAKE [facility] Last Admin: 10/17/21 07:50 Dose: 3 ml Documented by: PIA Allopurinol (Allopurinol 100 Mg Tablet) 50 mg PO DAILY [facility] Last Admin: 10/17/21 08:42 Dose: 50 mg Documented by: YOANDY Amiodarone HCl (Amiodarone Hcl 200 Mg Tablet) 100 mg PO DAILY [facility] Last Admin: 10/17/21 08:42 Dose: 100 mg Documented by: YOANDY Atorvastatin Calcium (Atorvastatin Calcium 20 Mg Tablet) 20 mg PO BEDTIME [facility] Last Admin: 10/16/21 20:37 Dose: 20 mg Documented by: MORRINNando Docusate Sodium (Docusate Sodium 100 Mg Capsule) 100 mg PO BID PRN PRN Reason: Constipation Fluticasone/Vilanterol (Fluticasone/Vilanterol 200/25 Blst.W.Dev) 1 puff INHALE RDAILY [facility] Last Admin: 10/17/21 07:47 Dose: Not Given Documented by: PIA Non-Admin Reason: Med Not Available Furosemide (Furosemide 40 Mg Tablet) 40 mg PO BID [facility]; Protocol Last Admin: 10/17/21 08:42 Dose: 40 mg Documented by: YOANDY Guaifenesin/Dextromethorphan (Guaifenesin Dm 600/30 1 Tab Tab.Er.12h) 1 tab PO Q12H [facility] Last Admin: 10/17/21 08:41 Dose: 1 tab Documented by: YOANDY Ampicillin Sodium/Sulbactam (Sodium 1.5 gm/ Sodium Chloride) 100 mls @ 200 mls/hr IV Q6H [facility] Last Admin: 10/17/21 09:39 Dose: 200 mls/hr Documented by: YOANDY Levothyroxine Sodium (Levothyroxine Sodium 75 Mcg Tablet) 75 mcg PO DAILY [facility] Last Admin: 10/17/21 08:42 Dose: 75 mcg Documented by: YOANDY Magnesium Oxide (Magnesium Oxide 400 Mg Tablet) 400 mg PO BID [facility] Last Admin: 10/17/21 08:42 Dose: 400 mg Documented by: YOANDY Methylprednisolone Sodium Succinate (Methylprednisolone Sod Succ 40 Mg/Ml Vial) 40 mg IVPUSH Q12H [facility] Last Admin: 10/17/21 08:39 Dose: 40 mg Documented by: YOANDY Mirtazapine (Mirtazapine 15 Mg Tablet) 15 mg PO BEDTIME [facility] Last Admin: 10/16/21 20:38 Dose: 15 mg Documented by: MORRINNando Omeprazole (Omeprazole 40 Mg Capsule.Dr) 40 mg PO BID [facility] Last Admin: 10/17/21 08:42 Dose: 40 mg Documented by: YOANDY Ondansetron HCl (Ondansetron Hcl 4 Mg/2 Ml Vial) 4 mg IVPUSH Q8H PRN PRN Reason: Nausea and Vomiting Potassium Chloride (Potassium Chloride Er 20 Meq Tab.Er.Prt) 20 meq PO DAILY [facility] Last Admin: 10/17/21 08:41 Dose: 20 meq Documented by: YOANDY Sodium Chloride (0.9 % Sodium Chloride Flush 3 Ml Syringe) 3 ml IVFLUSH QSHIFT [facility] Last Admin: 10/17/21 08:42 Dose: 3 ml Documented by: YOANDY Warfarin Sodium (Warfarin Sodium 2.5 Mg Tablet) 2.5 mg PO DAILY@1800 [facility] Labs CBC & Chem 7: 10/17/21 06:45 10/17/21 06:45 Labs: Laboratory Results - last 24 hr 10/16/21 10/17/21 10/17/21 12:09 06:45 06:45 MCV 88.0 MCH 28.0 MCHC 31.8 RDW 16.3 H Plt Count 134 L MPV 10.1 Absolute Nucleated RBC 0.000 Nucleated RBC % (auto) 0.0 PT 54.8 H INR 4.7 H Anion Gap Estim Creat Clear Calc Estimated GFR Fasting Glucose Calcium Respiratory Panel Jerome See Note Adenovirus (Rapid PCR) Not Detected B.pert (TEM-PCR) Not Detected B.parapertussis DNA PCR Not Detected C. pneumoniae DNA (PCR) Not Detected Coronavirus OC43 (PCR) Not Detected Coronavirus HKU1 (PCR) Not Detected Coronavirus 229E (PCR) Not Detected Coronavirus NL63 (PCR) Not Detected Human Metapneumovir PCR Detected A Influenza A (RT-PCR) Not Detected Influenza B (RT-PCR) Not Detected M. pneumoniae (PCR) Not Detected Parainfluenza 1 (PCR) Not Detected Parainfluenza 2 (PCR) Not Detected Parainfluenza 3 (PCR) Not Detected Parainfluenza 4 (PCR) Not Detected RSV (PCR) Not Detected Entero/Rhino (PCR) Not Detected SARS-CoV-2 RNA (RT-PCR) Not Detected 10/17/21 06:45 MCV MCH MCHC RDW Plt Count MPV Absolute Nucleated RBC Nucleated RBC % (auto) PT INR Anion Gap 15 Estim Creat Clear Calc 46.4 Estimated GFR > 60 Fasting Glucose 136 H Calcium 8.4 Respiratory Panel Jerome Adenovirus (Rapid PCR) B.pert (TEM-PCR) B.parapertussis DNA PCR C. pneumoniae DNA (PCR) Coronavirus OC43 (PCR) Coronavirus HKU1 (PCR) Coronavirus 229E (PCR) Coronavirus NL63 (PCR) Human Metapneumovir PCR Influenza A (RT-PCR) Influenza B (RT-PCR) M. pneumoniae (PCR) Parainfluenza 1 (PCR) Parainfluenza 2 (PCR) Parainfluenza 3 (PCR) Parainfluenza 4 (PCR) RSV (PCR) Entero/Rhino (PCR) SARS-CoV-2 RNA (RT-PCR) Microbiology Microbiology Results: Microbiology 10/15/21 15:11 Blood Culture - Preliminary Blood - Venous No growth after 24 hours. 10/15/21 13:59 Blood Culture - Preliminary Blood - Venous No growth after 24 hours. Assessment and Plan (1) Seizure: Status: Acute Plan 86M presented iwth sob sepsis and acute on chronic hypoxic respriatory failure acute copd decopmensation due to aspiraiton pnuemonia continues to have fevers, will restart antibiotics - unasyn continue steroids, bronchodilators, wean o2 as tolerated (baseline 2L) seizure eeg monitor neuro appreciated, no AED if eeg negative paroxysmal afib amio, coumadin, monitor inr hld statin gerd ppi hypothyroid synthroid reason for continued hospitalization: wignificantly more hypoxic than baseline, still febrile Quality Stroke Does the patient have a stroke diagnosis?: No VTE Prior VTE?: No VTE Risk Level:: Medical - moderate - high VTE Device Contraindication: Treatment Not Indicated VTE Drug Contraindication: N/A - Med Ordered
--- NOTE | 2021-10-17 10:26 | P.CDIC_ITS ---
CDI Concurrent Query Documentation Clarification: PHYSICIAN'S DOCUMENTATION REQUEST Date of Query: 10/17/21 1027 Patient Name: Antoine Hernandez Admit Date: 10/15/21 Dear Doctor, A review of the medical record indicates additional documentation may be needed. Please review below and update the documentation accordingly. Is there a diagnosis that correlates with these lab findings: Risk Factors/Clinical Indicators/Treatments LABS: potassium 10/17 - 2.6 L Please indicate in your progress notes if you are in agreement that the above diagnosis is valid for this patient: Hypokalemia or other: * Yes, [ ] is a valid diagnosis for this patient * No, [ ] is a not a valid diagnosis for this patient * Other (please specify) * Unable to determine Use of terms such as suspected, likely, concern for, or probable (associated with a specific diagnosis that is being evaluated, monitored, or treated as if it exists) are acceptable and can be coded in the inpatient setting, when documented at the time of discharge. Thank you, Niurka Howard [facility], CDIS Extension: [phone] Please use your independent medical judgment in providing your response. THIS QUERY IS PART OF THE PERMANENT MEDICAL RECORD Provider Response: Other Other Diagnosis: hypokalemia
--- NOTE | 2021-10-17 11:28 | MHC.SL.SWA ---
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 Recommend strict aspiration precautions and TOTAL SUPERVISION during PO intake to monitor tolerance, 02 levels during PO intake. Oral Medication Intake: Crushed with Puree Please contact the pharmacy regarding appropriate crushable or liquid drug formulations that are available whenever modified delivery is recommended. Compensatory Strategies and Precautions to be Taken for Safe Swallow: Sitting Upright (90 deg) Small Bites and Sips Alternate Liquids/Solids Rate of Ingestion Change Avoid Specific Foods Supervision While Eating and Drinking for Safe Swallow: Total Supervision (1:1) Foods to Avoid: Difficult to chew solids Swallowing Recommended Treatments: Compens. Strategy Educat. Recommendation for Speech: Inpatient Speech Therapy: Pt seen this a.m. for toleration of recommended diet, re-assessment of swallow. Nursing reported that PT had small amount of breakfast w/ no swallowing difficulty noted, however Pt c/o lack of appetite and did not eat much. Pt was sitting in chair at bedside, had ensure shake w/ straw. Pt was observed taking straw sips of liquid, taking small sips by straw, good oral management, w/ swallow trigger and timely swallow noted, no clinical signs of aspiration. By report and observation, Pt is tolerating current recommended diet consistencies well, though has limited motivation to eat. Pt is careful when taking liquids with straw, and can continue if this is preferred way of taking liquids. Recommend continue diet of Chopped/Advanced (NDD3) w/ THIN Liquids, w/ Pills CRUSHED in puree. Comment: INFORMATION TECHNOLOGY PROFESSOR will continue to follow Frequency/Duration: M-F Date Range for Service Req: Timeline to reassess: Track Superintendent Clinican/Clinical Fellow: No Supervisory Statement: I have reviewed and agree with the student/clinical fellow's documentation: N/A Speech Language Pathologist: Teodora Leslie M.A., CCC-INFORMATION TECHNOLOGY PROFESSOR
[2021-10-17] MEDS: Potassium Chloride ER 20 MEQ TAB.ER.PRT 40 MEQ PO (11:48)
--- NOTE | 2021-10-17 11:53 | MHC.CM.PN ---
PATIENT LIVES WITH HCP/ (ON FILE AND VERIFIED) HE USES A CANE OCCASIONALLY HOME O2 @ 2L VIA CAN[place] SUPPLIED BY [facility] HE RECEIVES MEALS ON WHEELS THROUGH [facility]. COVID VACCINATED X 3. HE IS HOPING TO RETURN HOME WITH NO NEED FOR SERVICES. IMM 10/17 IN CHART.
[2021-10-17] MEDS: Mirtazapine 15 MG TABLET PO (21:07)
[2021-10-17] MEDS: Atorvastatin Calcium 20 MG TABLET PO (21:07)
[2021-10-18] VITALS (10 sets, daily range): BP systolic 100–149; BP diastolic 56–79; PULSE 72–85; RESP 16–20; TEMP 36.2–37; O2SAT 90–94
[2021-10-18] MEDS: Ampicillin Sodium/Sulbactam Na 1.5 GM in 0.9 % Sodium Chloride 100 ML IV ×4 (02:08→20:46)
[2021-10-18 06:46] LABS: Hemoglobin 13.7 g/dl (14.0-18.0); Mean Corpuscular HGB Conc 31.9 g/dl (31.0-36.0); Mean Corpuscular Hemoglobin 28.8 pg (27.0-33.0); Mean Corpuscular Volume 90.3 fL (80.0-98.0); Mean Platelet Volume 10.5 fL (9.4-12.4); Platelet Count 138 X10*3/uL (160-400); Red Blood Count 4.76 X10*6/uL (4.60-5.80); Red Cell Distribution Width 16.3 % (11.0-16.0); White Blood Count 15.5 X10*3/uL (4.8-10.8)
[2021-10-18 06:51] LABS: INTERNATIONAL NORM RATIO 3.5 (0.9-1.1); Prothrombin Time 40.9 SEC (9.9-13.0)
[2021-10-18 07:06] LABS: Anion Gap 16 (12-20); Blood Urea Nitrogen 44 mg/dL (9-16); Calcium 8.7 mg/dL (8.4-10.2); Carbon Dioxide 30 mmol/L (22-29); Chloride 98 mmol/L (96-108); Creatinine Clr Calc Pharmacy 40.6; Estimated Glomerular Filt Rate 58; Glucose Fasting 139 mg/dL (60-99); Potassium 3.6 mmol/L (3.3-5.1); Sodium 140 mmol/L (135-145)
[2021-10-18] MEDS: Albuterol/Iprat 2.5/0.5MG 3 ML AMPUL.NEB INHALE ×4 (08:29→19:21)
[2021-10-18] MEDS: Amiodarone HCL 200 MG TABLET 100 MG PO (08:36)
[2021-10-18] MEDS: Magnesium Oxide 400 MG TABLET PO ×2 (08:36→21:07)
[2021-10-18] MEDS: Furosemide 40 MG TABLET PO ×2 (08:36→21:07)
[2021-10-18] MEDS: guaiFENesin DM 600/30 1 TAB TAB.ER.12H PO ×2 (08:38→21:07)
[2021-10-18] MEDS: allopurinoL 100 MG TABLET 50 MG PO (08:38)
[2021-10-18] MEDS: Levothyroxine Sodium 75 MCG TABLET PO (08:38)
[2021-10-18] MEDS: Omeprazole 40 MG CAPSULE.DR PO ×2 (08:38→21:07)
[2021-10-18] MEDS: 0.9 % Sodium Chloride Flush 3 ML SYRINGE IVFLUSH ×2 (08:40→14:03)
[2021-10-18] MEDS: methylPREDNISolone Sod Succ 40 MG/ML VIAL IVPUSH ×2 (09:18→20:49)
[2021-10-18] MEDS: Potassium Chloride ER 20 MEQ TAB.ER.PRT PO (09:19)
--- NOTE | 2021-10-18 09:37 | P.PNIM_ITS ---
Subjective Subjective Date of Service: 10/18/21 Interval History: cc: sob interval history:improved initially, feeling more sob today Cardiovascular Cardiovascular: Reports no additional cardiovascular complaints Respiratory Respiratory: Reports no additional respiratory complaints Physical Exam Vital Signs: Vital Signs: Last Vital Signs Temp 97.1 F 10/18/21 07:23 Pulse 72 10/18/21 08:31 Resp 18 10/18/21 08:31 BP 107/56 L 10/18/21 07:23 Pulse Ox 93 10/18/21 07:23 Oxygen Flow Rate 4 10/15/21 13:12 BMI result Body Mass Index 21.4 General: AO X 3, no acute distress Resp:? diminished bilateral, no accessory muscles used CVS: S1,S2,RRR GI: soft, non tender, non distended Neuro:? motor grossly intact, alert Psych: appropriate affect, appropriate insight? Objective Data Active Medications Acetaminophen (Acetaminophen 325 Mg Tablet) 650 mg PO Q6H PRN PRN Reason: Pain, Mild (Pain Scale 1-3) Albuterol/Ipratropium (Albuterol/Iprat 2.5/0.5mg 3 Ml Ampul.Neb) 3 ml INHALE RQ4H WHILE AWAKE [facility] Last Admin: 10/18/21 08:29 Dose: 3 ml Documented by: RENA Allopurinol (Allopurinol 100 Mg Tablet) 50 mg PO DAILY [facility] Last Admin: 10/18/21 08:38 Dose: 50 mg Documented by: TENNILLE Amiodarone HCl (Amiodarone Hcl 200 Mg Tablet) 100 mg PO DAILY [facility] Last Admin: 10/18/21 08:36 Dose: 100 mg Documented by: TENNILLE Atorvastatin Calcium (Atorvastatin Calcium 20 Mg Tablet) 20 mg PO BEDTIME [facility] Last Admin: 10/17/21 21:07 Dose: 20 mg Documented by: GREGG Docusate Sodium (Docusate Sodium 100 Mg Capsule) 100 mg PO BID PRN PRN Reason: Constipation Fluticasone/Vilanterol (Fluticasone/Vilanterol 200/25 Blst.W.Dev) 1 puff INHALE RDAILY [facility] Last Admin: 10/18/21 08:31 Dose: Not Given Documented by: RENA Non-Admin Reason: Med Not Available Furosemide (Furosemide 40 Mg Tablet) 40 mg PO BID [facility]; Protocol Last Admin: 10/18/21 08:36 Dose: 40 mg Documented by: TENNILLE Guaifenesin/Dextromethorphan (Guaifenesin Dm 600/30 1 Tab Tab.Er.12h) 1 tab PO Q12H [facility] Last Admin: 10/18/21 08:38 Dose: 1 tab Documented by: TENNILLE Ampicillin Sodium/Sulbactam (Sodium 1.5 gm/ Sodium Chloride) 100 mls @ 200 mls/hr IV Q6H [facility] Last Infusion: 10/18/21 09:19 Dose: 0 mls/hr Documented by: TENNILLE Levothyroxine Sodium (Levothyroxine Sodium 75 Mcg Tablet) 75 mcg PO DAILY [facility] Last Admin: 10/18/21 08:38 Dose: 75 mcg Documented by: TENNILLE Magnesium Oxide (Magnesium Oxide 400 Mg Tablet) 400 mg PO BID [facility] Last Admin: 10/18/21 08:36 Dose: 400 mg Documented by: TENNILLE Methylprednisolone Sodium Succinate (Methylprednisolone Sod Succ 40 Mg/Ml Vial) 40 mg IVPUSH Q12H [facility] Last Admin: 10/18/21 09:18 Dose: 40 mg Documented by: TENNILLE Mirtazapine (Mirtazapine 15 Mg Tablet) 15 mg PO BEDTIME [facility] Last Admin: 10/17/21 21:07 Dose: 15 mg Documented by: GREGG Omeprazole (Omeprazole 40 Mg Capsule.Dr) 40 mg PO BID [facility] Last Admin: 10/18/21 08:38 Dose: 40 mg Documented by: TENNILLE Ondansetron HCl (Ondansetron Hcl 4 Mg/2 Ml Vial) 4 mg IVPUSH Q8H PRN PRN Reason: Nausea and Vomiting Potassium Chloride (Potassium Chloride Er 20 Meq Tab.Er.Prt) 20 meq PO DAILY [facility] Last Admin: 10/18/21 09:19 Dose: 20 meq Documented by: TENNILLE Sodium Chloride (0.9 % Sodium Chloride Flush 3 Ml Syringe) 3 ml IVFLUSH QSHIFT [facility] Last Admin: 10/18/21 08:40 Dose: 3 ml Documented by: TENNILLE Warfarin Sodium (Warfarin Sodium 2.5 Mg Tablet) 2.5 mg PO DAILY@1800 [facility] Labs CBC & Chem 7: 10/18/21 06:08 05/13/22 06:08 Labs: Laboratory Results - last 24 hr 10/18/21 10/18/21 10/18/21 06:08 06:08 06:08 MCV 90.3 MCH 28.8 MCHC 31.9 RDW 16.3 H Plt Count 138 L MPV 10.5 Absolute Nucleated RBC 0.000 Nucleated RBC % (auto) 0.0 PT 40.9 H INR 3.5 H Anion Gap 16 Estim Creat Clear Calc 40.6 Estimated GFR 58 Fasting Glucose 139 H Calcium 8.7 Microbiology Microbiology Results: Microbiology 10/15/21 15:11 Blood Culture - Preliminary Blood - Venous No growth after 48 hours. 10/15/21 13:59 Blood Culture - Preliminary Blood - Venous No growth after 48 hours. Assessment and Plan (1) Seizure: Status: Acute Plan 86M presented iwth sob sepsis and acute on chronic hypoxic respriatory failure acute copd decopmensation due to aspiraiton pnuemonia continue unasyn continue steroids, bronchodilators, wean o2 as tolerated (baseline 2L) seizure eeg negative no AED paroxysmal afib amio, coumadin, monitor inr hld statin gerd ppi hypothyroid synthroid reason for continued hospitalization: still hypoxic, symptomatic Quality Stroke Does the patient have a stroke diagnosis?: No VTE Prior VTE?: No VTE Risk Level:: Medical - moderate - high VTE Device Contraindication: Treatment Not Indicated VTE Drug Contraindication: N/A - Med Ordered
--- NOTE | 2021-10-18 15:59 | MHC.SL.SWA ---
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 Continue to recommend strict aspiration precautions and TOTAL SUPERVISION during PO intake to monitor tolerance. Provided education to patient RE: aspiration precautions. PUBLIC HEALTH EPIDEMIOLOGIST will continue to follow. Oral Medication Intake: Crushed with Puree Please contact the pharmacy regarding appropriate crushable or liquid drug formulations that are available whenever modified delivery is recommended. Compensatory Strategies and Precautions to be Taken for Safe Swallow: Sitting Upright (90 deg) Small Bites and Sips Alternate Liquids/Solids Rate of Ingestion Change Avoid Specific Foods Supervision While Eating and Drinking for Safe Swallow: Total Supervision (1:1) Foods to Avoid: Difficult to chew solids Swallowing Recommended Treatments: Compens. Strategy Educat. Recommendation for Speech: Inpatient Speech Therapy Comment: PUBLIC HEALTH EPIDEMIOLOGIST will continue to follow Frequency/Duration: M-F Date Range for Service Req: Timeline to reassess: Home Teaching Grades 9 Thru 12 Teacher Clinican/Clinical Fellow: No Supervisory Statement: I have reviewed and agree with the student/clinical fellow's documentation: N/A Speech Language Pathologist: Ashlyn Garcia M.A., [facility]-PUBLIC HEALTH EPIDEMIOLOGIST
[2021-10-18] MEDS: Fluticasone/Vilanterol 200/25 BLST.W.DEV 1 PUFF INHALE (19:35)
[2021-10-18] MEDS: Atorvastatin Calcium 20 MG TABLET PO (21:07)
[2021-10-18] MEDS: Mirtazapine 15 MG TABLET PO (21:07)
[2021-10-19] VITALS (10 sets, daily range): BP systolic 112–138; BP diastolic 58–74; PULSE 75–92; RESP 17–20; TEMP 36.2–36.8; O2SAT 90–100
[2021-10-19] MEDS: Ampicillin Sodium/Sulbactam Na 1.5 GM in 0.9 % Sodium Chloride 100 ML IV ×4 (01:49→21:54)
[2021-10-19] MEDS: 0.9 % Sodium Chloride Flush 3 ML SYRINGE IVFLUSH ×4 (01:49→22:23)
[2021-10-19 07:53] LABS: Anion Gap 13 (12-20); Blood Urea Nitrogen 39 mg/dL (9-16); Calcium 8.4 mg/dL (8.4-10.2); Carbon Dioxide 32 mmol/L (22-29); Chloride 100 mmol/L (96-108); Creatinine Clr Calc Pharmacy 44.3; Estimated Glomerular Filt Rate > 60; Glucose Fasting 152 mg/dL (60-99); Potassium 3.2 mmol/L (3.3-5.1); Sodium 142 mmol/L (135-145)
[2021-10-19 08:03] LABS: Hematocrit 40.6 % (42.0-52.0); Hemoglobin 12.8 g/dl (14.0-18.0); Mean Corpuscular HGB Conc 31.5 g/dl (31.0-36.0); Mean Corpuscular Hemoglobin 28.4 pg (27.0-33.0); Mean Platelet Volume 11.7 fL (9.4-12.4); Platelet Count 145 X10*3/uL (160-400); Red Blood Count 4.51 X10*6/uL (4.60-5.80); Red Cell Distribution Width 16.4 % (11.0-16.0); White Blood Count 13.1 X10*3/uL (4.8-10.8)
[2021-10-19] MEDS: Albuterol/Iprat 2.5/0.5MG 3 ML AMPUL.NEB INHALE ×4 (09:42→19:36)
[2021-10-19] MEDS: Potassium Chloride ER 20 MEQ TAB.ER.PRT PO (10:04)
[2021-10-19] MEDS: Magnesium Oxide 400 MG TABLET PO ×2 (10:04→21:40)
[2021-10-19] MEDS: methylPREDNISolone Sod Succ 40 MG/ML VIAL IVPUSH ×2 (10:04→21:41)
[2021-10-19] MEDS: guaiFENesin DM 600/30 1 TAB TAB.ER.12H PO ×2 (10:04→21:40)
[2021-10-19] MEDS: allopurinoL 100 MG TABLET 50 MG PO (10:05)
[2021-10-19] MEDS: Amiodarone HCL 200 MG TABLET 100 MG PO (10:05)
[2021-10-19] MEDS: Omeprazole 40 MG CAPSULE.DR PO ×2 (10:06→21:41)
[2021-10-19] MEDS: Levothyroxine Sodium 75 MCG TABLET PO (10:06)
[2021-10-19] MEDS: Furosemide 40 MG TABLET PO ×2 (10:06→21:40)
--- NOTE | 2021-10-19 10:08 | HO.PM.IMPN ---
Subjective Subjective Date of Service: 10/19/21 Interval History: cc: sob interval history:improving, still sob Cardiovascular Cardiovascular: Reports no additional cardiovascular complaints Respiratory Respiratory: Reports no additional respiratory complaints Physical Exam Vital Signs: Vital Signs: Last Vital Signs Temp 98.3 F 10/19/21 08:00 Pulse 88 10/19/21 09:47 Resp 20 10/19/21 09:47 BP 138/66 10/19/21 08:00 Pulse Ox 93 10/19/21 08:00 Oxygen Flow Rate 4 10/15/21 13:12 BMI result Body Mass Index 21.4 General: AO X 3, no acute distress Resp:? diminished bilateral, no accessory muscles used CVS: S1,S2,RRR GI: soft, non tender, non distended Neuro:? motor grossly intact, alert Psych: appropriate affect, appropriate insight? Objective Data Active Medications Acetaminophen (Acetaminophen 325 Mg Tablet) 650 mg PO Q6H PRN PRN Reason: Pain, Mild (Pain Scale 1-3) Albuterol/Ipratropium (Albuterol/Iprat 2.5/0.5mg 3 Ml Ampul.Neb) 3 ml INHALE RQ4H WHILE AWAKE [facility] Last Admin: 10/19/21 09:42 Dose: 3 ml Documented by: SHARON Allopurinol (Allopurinol 100 Mg Tablet) 50 mg PO DAILY [facility] Last Admin: 10/19/21 10:05 Dose: 50 mg Documented by: CARMEL Amiodarone HCl (Amiodarone Hcl 200 Mg Tablet) 100 mg PO DAILY [facility] Last Admin: 10/19/21 10:05 Dose: 100 mg Documented by: CARMEL Atorvastatin Calcium (Atorvastatin Calcium 20 Mg Tablet) 20 mg PO BEDTIME [facility] Last Admin: 10/18/21 21:07 Dose: 20 mg Documented by: TIFFANIE Docusate Sodium (Docusate Sodium 100 Mg Capsule) 100 mg PO BID PRN PRN Reason: Constipation Fluticasone/Vilanterol (Fluticasone/Vilanterol 200/25 Blst.W.Dev) 1 puff INHALE RDAILY [facility] Last Admin: 10/18/21 19:35 Dose: 1 puff Documented by: EVERETT Furosemide (Furosemide 40 Mg Tablet) 40 mg PO BID [facility]; Protocol Last Admin: 10/19/21 10:06 Dose: 40 mg Documented by: CARMEL Guaifenesin/Dextromethorphan (Guaifenesin Dm 600/30 1 Tab Tab.Er.12h) 1 tab PO Q12H [facility] Last Admin: 10/19/21 10:04 Dose: 1 tab Documented by: CARMEL Ampicillin Sodium/Sulbactam (Sodium 1.5 gm/ Sodium Chloride) 100 mls @ 200 mls/hr IV Q6H [facility] Last Admin: 10/19/21 10:06 Dose: 200 mls/hr Documented by: CARMEL Levothyroxine Sodium (Levothyroxine Sodium 75 Mcg Tablet) 75 mcg PO DAILY [facility] Last Admin: 10/19/21 10:06 Dose: 75 mcg Documented by: CARMEL Magnesium Oxide (Magnesium Oxide 400 Mg Tablet) 400 mg PO BID [facility] Last Admin: 10/19/21 10:04 Dose: 400 mg Documented by: CARMEL Methylprednisolone Sodium Succinate (Methylprednisolone Sod Succ 40 Mg/Ml Vial) 40 mg IVPUSH Q12H [facility] Last Admin: 10/19/21 10:04 Dose: 40 mg Documented by: CARMEL Mirtazapine (Mirtazapine 15 Mg Tablet) 15 mg PO BEDTIME [facility] Last Admin: 10/18/21 21:07 Dose: 15 mg Documented by: TIFFANIE Omeprazole (Omeprazole 40 Mg Capsule.Dr) 40 mg PO BID [facility] Last Admin: 10/19/21 10:06 Dose: 40 mg Documented by: CARMEL Ondansetron HCl (Ondansetron Hcl 4 Mg/2 Ml Vial) 4 mg IVPUSH Q8H PRN PRN Reason: Nausea and Vomiting Potassium Chloride (Potassium Chloride Er 20 Meq Tab.Er.Prt) 20 meq PO DAILY [facility] Last Admin: 10/19/21 10:04 Dose: 20 meq Documented by: CARMEL Sodium Chloride (0.9 % Sodium Chloride Flush 3 Ml Syringe) 3 ml IVFLUSH QSHIFT [facility] Last Admin: 10/19/21 10:06 Dose: 3 ml Documented by: CARMEL Warfarin Sodium (Warfarin Sodium 2.5 Mg Tablet) 2.5 mg PO DAILY@1800 [facility] Labs CBC & Chem 7: 10/19/21 07:27 10/19/21 07:27 Labs: Laboratory Results - last 24 hr 10/19/21 10/19/21 07:27 07:27 MCV 90.0 MCH 28.4 MCHC 31.5 RDW 16.4 H Plt Count 145 L MPV 11.7 Absolute Nucleated RBC 0.000 Nucleated RBC % (auto) 0.0 Anion Gap 13 Estim Creat Clear Calc 44.3 Estimated GFR > 60 Fasting Glucose 152 H Calcium 8.4 Assessment and Plan (1) Seizure: Status: Acute Plan 86M presented iwth sob sepsis and acute on chronic hypoxic respriatory failure acute copd decopmensation due to aspiration pnuemonia and human metapneumovirus continue unasyn continue steroids, bronchodilators, wean o2 as tolerated (baseline 2L) seizure eeg negative no AED paroxysmal afib amio, coumadin, monitor inr hld statin gerd ppi hypothyroid synthroid reason for continued hospitalization: still hypoxic, symptomatic Quality Stroke Does the patient have a stroke diagnosis?: No VTE Prior VTE?: No VTE Risk Level:: Medical - moderate - high VTE Device Contraindication: Treatment Not Indicated VTE Drug Contraindication: N/A - Med Ordered
[2021-10-19 10:36] LABS: INTERNATIONAL NORM RATIO 3.3 (0.9-1.1); Prothrombin Time 37.9 SEC (9.9-13.0)
[2021-10-19] MEDS: Mirtazapine 15 MG TABLET PO (21:41)
[2021-10-19] MEDS: Atorvastatin Calcium 20 MG TABLET PO (21:41)
[2021-10-20] VITALS (9 sets, daily range): BP systolic 119–125; BP diastolic 56–64; PULSE 73–96; RESP 18–20; TEMP 36–36.9; O2SAT 90–98
[2021-10-20] MEDS: Ampicillin Sodium/Sulbactam Na 1.5 GM in 0.9 % Sodium Chloride 100 ML IV ×4 (02:35→21:24)
[2021-10-20 07:02] LABS: Hematocrit 39.8 % (42.0-52.0); Hemoglobin 12.6 g/dl (14.0-18.0); Mean Corpuscular HGB Conc 31.7 g/dl (31.0-36.0); Mean Corpuscular Hemoglobin 28.1 pg (27.0-33.0); Mean Corpuscular Volume 88.6 fL (80.0-98.0); Mean Platelet Volume 10.6 fL (9.4-12.4); Platelet Count 149 X10*3/uL (160-400); Red Blood Count 4.49 X10*6/uL (4.60-5.80); Red Cell Distribution Width 16.3 % (11.0-16.0); White Blood Count 12.1 X10*3/uL (4.8-10.8)
[2021-10-20 07:30] LABS: Anion Gap 16 (12-20); Blood Urea Nitrogen 39 mg/dL (9-16); Calcium 8.1 mg/dL (8.4-10.2); Carbon Dioxide 35 mmol/L (22-29); Chloride 97 mmol/L (96-108); Creatinine Clr Calc Pharmacy 45.1; Estimated Glomerular Filt Rate > 60; Glucose Fasting 142 mg/dL (60-99); Potassium 2.7 mmol/L (3.3-5.1); Sodium 141 mmol/L (135-145)
[2021-10-20 07:49] LABS: INTERNATIONAL NORM RATIO 3.5 (0.9-1.1); Prothrombin Time 40.9 SEC (9.9-13.0)
[2021-10-20] MEDS: Albuterol/Iprat 2.5/0.5MG 3 ML AMPUL.NEB INHALE ×4 (08:16→20:04)
[2021-10-20] MEDS: Fluticasone/Vilanterol 200/25 BLST.W.DEV 1 PUFF INHALE (08:16)
[2021-10-20] MEDS: 0.9 % Sodium Chloride Flush 3 ML SYRINGE IVFLUSH (08:36)
[2021-10-20] MEDS: Amiodarone HCL 200 MG TABLET 100 MG PO (08:36)
[2021-10-20] MEDS: Levothyroxine Sodium 75 MCG TABLET PO (08:36)
[2021-10-20] MEDS: Magnesium Oxide 400 MG TABLET PO ×2 (08:37→21:24)
[2021-10-20] MEDS: Potassium Chloride ER 20 MEQ TAB.ER.PRT PO (08:37)
[2021-10-20] MEDS: Omeprazole 40 MG CAPSULE.DR PO ×2 (08:37→21:24)
[2021-10-20] MEDS: Furosemide 40 MG TABLET PO ×2 (08:37→21:24)
[2021-10-20] MEDS: allopurinoL 100 MG TABLET 50 MG PO (08:37)
[2021-10-20] MEDS: guaiFENesin DM 600/30 1 TAB TAB.ER.12H PO ×2 (08:37→21:24)
[2021-10-20] MEDS: methylPREDNISolone Sod Succ 40 MG/ML VIAL IVPUSH ×2 (08:40→21:24)
--- NOTE | 2021-10-20 09:21 | P.PNIM_ITS ---
Subjective Subjective Date of Service: 10/20/21 Interval History: cc: sob interval history:improving Cardiovascular Cardiovascular: Reports no additional cardiovascular complaints Gastrointestinal Gastrointestinal: Reports no additional gastrointestinal complaints Physical Exam Vital Signs: Vital Signs: Last Vital Signs Temp 97.7 F 10/20/21 08:00 Pulse 76 10/20/21 08:21 Resp 18 10/20/21 08:21 BP 119/57 L 10/20/21 08:00 Pulse Ox 94 10/20/21 08:00 Oxygen Flow Rate 4 10/15/21 13:12 BMI result Body Mass Index 21.4 General: AO X 3, no acute distress Resp:? diminished bilateral, no accessory muscles used CVS: S1,S2,RRR GI: soft, non tender, non distended Neuro:? motor grossly intact, alert Psych: appropriate affect, appropriate insight? Objective Data Active Medications Acetaminophen (Acetaminophen 325 Mg Tablet) 650 mg PO Q6H PRN PRN Reason: Pain, Mild (Pain Scale 1-3) Albuterol/Ipratropium (Albuterol/Iprat 2.5/0.5mg 3 Ml Ampul.Neb) 3 ml INHALE RQ4H WHILE AWAKE [facility] Last Admin: 10/20/21 08:16 Dose: 3 ml Documented by: SHARON Allopurinol (Allopurinol 100 Mg Tablet) 50 mg PO DAILY [facility] Last Admin: 10/20/21 08:37 Dose: 50 mg Documented by: MAXIM Amiodarone HCl (Amiodarone Hcl 200 Mg Tablet) 100 mg PO DAILY [facility] Last Admin: 10/20/21 08:36 Dose: 100 mg Documented by: MAXIM Atorvastatin Calcium (Atorvastatin Calcium 20 Mg Tablet) 20 mg PO BEDTIME [facility] Last Admin: 10/19/21 21:41 Dose: 20 mg Documented by: MORRINL Docusate Sodium (Docusate Sodium 100 Mg Capsule) 100 mg PO BID PRN PRN Reason: Constipation Fluticasone/Vilanterol (Fluticasone/Vilanterol 200/25 Blst.W.Dev) 1 puff INHALE RDAILY [facility] Last Admin: 10/20/21 08:16 Dose: 1 puff Documented by: SHARON Furosemide (Furosemide 40 Mg Tablet) 40 mg PO BID [facility]; Protocol Last Admin: 10/20/21 08:37 Dose: 40 mg Documented by: MAXIM Guaifenesin/Dextromethorphan (Guaifenesin Dm 600/30 1 Tab Tab.Er.12h) 1 tab PO Q12H [facility] Last Admin: 10/20/21 08:37 Dose: 1 tab Documented by: MAXIM Ampicillin Sodium/Sulbactam (Sodium 1.5 gm/ Sodium Chloride) 100 mls @ 200 mls/hr IV Q6H [facility] Last Admin: 10/20/21 08:59 Dose: 200 mls/hr Documented by: MAXIM Levothyroxine Sodium (Levothyroxine Sodium 75 Mcg Tablet) 75 mcg PO DAILY [facility] Last Admin: 10/20/21 08:36 Dose: 75 mcg Documented by: MAXIM Magnesium Oxide (Magnesium Oxide 400 Mg Tablet) 400 mg PO BID [facility] Last Admin: 10/20/21 08:37 Dose: 400 mg Documented by: MAXIM Methylprednisolone Sodium Succinate (Methylprednisolone Sod Succ 40 Mg/Ml Vial) 40 mg IVPUSH Q12H COUNT [facility] Last Admin: 10/20/21 08:40 Dose: 40 mg Documented by: MAXIM Mirtazapine (Mirtazapine 15 Mg Tablet) 15 mg PO BEDTIME COUNT [facility] Last Admin: 10/19/21 21:41 Dose: 15 mg Documented by: ELIZABETH Omeprazole (Omeprazole 40 Mg Capsule.) 40 mg PO BID COUNT [facility] Last Admin: 10/20/21 08:37 Dose: 40 mg Documented by: MAXIM Ondansetron HCl (Ondansetron Hcl 4 Mg/2 Ml Vial) 4 mg IVPUSH Q8H PRN PRN Reason: Nausea and Vomiting Potassium Chloride (Potassium Chloride Er 20 Meq Tab.Er.Prt) 20 meq PO DAILY COUNT [facility]CLUD[facility] Last Admin: 10/20/21 08:37 Dose: 20 meq Documented by: MAXIM Sodium Chloride (0.9 % Sodium Chloride Flush 3 Ml Syringe) 3 ml IVFLUSH QSHIFT COUNT [facility]CLUDES [facility] Last Admin: 10/20/21 08:36 Dose: 3 ml Documented by: MAXIM Warfarin Sodium (Warfarin Sodium 2.5 Mg Tablet) 2.5 mg PO DAILY@1800 [facility] Last Admin: 10/19/21 18:25 Dose: Not Given Documented by: CARMEL Non-Admin Reason: hold per dr Jaeger Labs CBC & Chem 7: 05/15/22 06:33 10/20/21 06:33 Labs: Laboratory Results - last 24 hr 10/19/21 10/20/21 10/20/21 10:10 06:33 06:33 MCV 88.6 MCH 28.1 MCHC 31.7 RDW 16.3 H Plt Count 149 L MPV 10.6 Absolute Nucleated RBC 0.000 Nucleated RBC % (auto) 0.0 PT 37.9 H INR 3.3 H Anion Gap 16 Estim Creat Clear Calc 45.1 Estimated GFR > 60 Fasting Glucose 142 H Calcium 8.1 L 10/20/21 07:34 MCV MCH MCHC RDW Plt Count MPV Absolute Nucleated RBC Nucleated RBC % (auto) PT 40.9 H INR 3.5 H Anion Gap Estim Creat Clear Calc Estimated GFR Fasting Glucose Calcium Assessment and Plan (1) Seizure: Status: Acute Plan 86M presented iwth sob sepsis and acute on chronic hypoxic respiratory failure acute copd decopmensation due to aspiration pnuemonia and human metapneumovirus continue unasyn continue steroids, bronchodilators, wean o2 as tolerated (baseline 2L) overall improving, would like to get backe to baseline o2 prior to discharge seizure eeg negative no AED paroxysmal afib amio, coumadin, monitor inr hld statin gerd ppi hypothyroid synthroid reason for continued hospitalization: still hypoxic, symptomatic Quality Stroke Does the patient have a stroke diagnosis?: No VTE Prior VTE?: No VTE Risk Level:: Medical - moderate - high VTE Device Contraindication: Treatment Not Indicated VTE Drug Contraindication: N/A - Med Ordered
[2021-10-20] MEDS: Mirtazapine 15 MG TABLET PO (21:24)
[2021-10-20] MEDS: Atorvastatin Calcium 20 MG TABLET PO (21:24)
[2021-10-20] MEDS: Potassium Chloride ER 20 MEQ TAB.ER.PRT 40 MEQ PO (21:54)
[2021-10-21] VITALS (11 sets, daily range): BP systolic 108–148; BP diastolic 56–74; PULSE 58–124; RESP 17–20; TEMP 36.4–37; O2SAT 86–98
[2021-10-21] MEDS: 0.9 % Sodium Chloride Flush 3 ML SYRINGE IVFLUSH ×4 (02:58→21:29)
[2021-10-21] MEDS: Ampicillin Sodium/Sulbactam Na 1.5 GM in 0.9 % Sodium Chloride 100 ML IV ×4 (02:59→21:06)
[2021-10-21 06:37] LABS: Hemoglobin 12.2 g/dl (14.0-18.0); Mean Corpuscular HGB Conc 32.1 g/dl (31.0-36.0); Mean Corpuscular Hemoglobin 28.8 pg (27.0-33.0); Mean Corpuscular Volume 89.6 fL (80.0-98.0); Mean Platelet Volume 11.4 fL (9.4-12.4); Platelet Count 152 X10*3/uL (160-400); Red Blood Count 4.24 X10*6/uL (4.60-5.80); Red Cell Distribution Width 16.3 % (11.0-16.0); White Blood Count 11.4 X10*3/uL (4.8-10.8)
[2021-10-21 07:03] LABS: Anion Gap 11 (12-20); Blood Urea Nitrogen 40 mg/dL (9-16); Calcium 8.2 mg/dL (8.4-10.2); Carbon Dioxide 35 mmol/L (22-29); Chloride 98 mmol/L (96-108); Creatinine Clr Calc Pharmacy 51.9; Estimated Glomerular Filt Rate > 60; Glucose Fasting 123 mg/dL (60-99); Potassium 2.9 mmol/L (3.3-5.1); Sodium 141 mmol/L (135-145)
[2021-10-21] MEDS: Fluticasone/Vilanterol 200/25 BLST.W.DEV 1 PUFF INHALE (07:37)
[2021-10-21] MEDS: Albuterol/Iprat 2.5/0.5MG 3 ML AMPUL.NEB INHALE ×4 (07:37→20:26)
[2021-10-21 09:04] LABS: INTERNATIONAL NORM RATIO 3.3 (0.9-1.1); Prothrombin Time 38.1 SEC (9.9-13.0)
--- NOTE | 2021-10-21 09:54 | P.PNIM_ITS ---
Subjective Subjective Date of Service: 10/21/21 Interval History: cc: sob interval history: improved, but worsening back pain, unable to wean Cardiovascular Cardiovascular: Reports no additional cardiovascular complaints Gastrointestinal Gastrointestinal: Reports no additional gastrointestinal complaints Physical Exam Vital Signs: Vital Signs: Last Vital Signs Temp 97.8 F 10/21/21 08:00 Pulse 74 10/21/21 08:00 Resp 20 10/21/21 08:00 BP 119/57 L 10/21/21 08:00 Pulse Ox 91 L 10/21/21 08:00 Oxygen Flow Rate 4 10/15/21 13:12 BMI result Body Mass Index 21.4 General: AO X 3, no acute distress Resp:? diminished bilateral, no accessory muscles used CVS: S1,S2,RRR GI: soft, non tender, non distended Neuro:? motor grossly intact, alert Psych: appropriate affect, appropriate insight? Objective Data Active Medications Acetaminophen (Acetaminophen 325 Mg Tablet) 650 mg PO Q6H PRN PRN Reason: Pain, Mild (Pain Scale 1-3) Albuterol/Ipratropium (Albuterol/Iprat 2.5/0.5mg 3 Ml Ampul.Neb) 3 ml INHALE RQ4H WHILE AWAKE [facility] Last Admin: 10/21/21 07:37 Dose: 3 ml Documented by: SHARON Allopurinol (Allopurinol 100 Mg Tablet) 50 mg PO DAILY [facility] Last Admin: 10/20/21 08:37 Dose: 50 mg Documented by: MAXIM Amiodarone HCl (Amiodarone Hcl 200 Mg Tablet) 100 mg PO DAILY [facility] Last Admin: 10/20/21 08:36 Dose: 100 mg Documented by: MAXIM Atorvastatin Calcium (Atorvastatin Calcium 20 Mg Tablet) 20 mg PO BEDTIME [facility] Last Admin: 10/20/21 21:24 Dose: 20 mg Documented by: BREANNA Docusate Sodium (Docusate Sodium 100 Mg Capsule) 100 mg PO BID PRN PRN Reason: Constipation Fluticasone/Vilanterol (Fluticasone/Vilanterol 200/25 Blst.W.Dev) 1 puff INHALE RDAILY [facility] Last Admin: 10/21/21 07:37 Dose: 1 puff Documented by: SHARON Furosemide (Furosemide 40 Mg Tablet) 40 mg PO BID [facility]; Protocol Last Admin: 10/20/21 21:24 Dose: 40 mg Documented by: BREANNA Guaifenesin/Dextromethorphan (Guaifenesin Dm 600/30 1 Tab Tab.Er.12h) 1 tab PO Q12H [facility] Last Admin: 10/20/21 21:24 Dose: 1 tab Documented by: BREANNA Ampicillin Sodium/Sulbactam (Sodium 1.5 gm/ Sodium Chloride) 100 mls @ 200 mls/hr IV Q6H [facility] Last Infusion: 10/21/21 03:32 Dose: 0 mls/hr Documented by: BREANNA Levothyroxine Sodium (Levothyroxine Sodium 75 Mcg Tablet) 75 mcg PO DAILY [facility] Last Admin: 10/20/21 08:36 Dose: 75 mcg Documented by: MAXIM Magnesium Oxide (Magnesium Oxide 400 Mg Tablet) 400 mg PO BID [facility] Last Admin: 10/20/21 21:24 Dose: 400 mg Documented by: BREANNA Methylprednisolone Sodium Succinate (Methylprednisolone Sod Succ 40 Mg/Ml Vial) 40 mg IVPUSH Q12H [facility] Last Admin: 10/20/21 21:24 Dose: 40 mg Documented by: BREANNA Mirtazapine (Mirtazapine 15 Mg Tablet) 15 mg PO BEDTIME [facility] Last Admin: 10/20/21 21:24 Dose: 15 mg Documented by: BREANNA Omeprazole (Omeprazole 40 Mg Capsule.Dr) 40 mg PO BID [facility] Last Admin: 10/20/21 21:24 Dose: 40 mg Documented by: BREANNA Ondansetron HCl (Ondansetron Hcl 4 Mg/2 Ml Vial) 4 mg IVPUSH Q8H PRN PRN Reason: Nausea and Vomiting Sodium Chloride (0.9 % Sodium Chloride Flush 3 Ml Syringe) 3 ml IVFLUSH QSHIFT [facility] Last Admin: 10/21/21 02:58 Dose: 3 ml Documented by: BREANNA Warfarin Sodium (Warfarin Sodium 2.5 Mg Tablet) 2.5 mg PO DAILY@1800 [facility] Last Admin: 10/20/21 18:56 Dose: Not Given Documented by: TENNILLE Non-Admin Reason: Physician Held Med Labs CBC & Chem 7: 10/21/21 06:00 10/21/21 06:00 Labs: Laboratory Results - last 24 hr 05/10/21/21 10/21/21 06:00 06:00 08:36 MCV 89.6 MCH 28.8 MCHC 32.1 RDW 16.3 H Plt Count 152 L MPV 11.4 Absolute Nucleated RBC 0.000 Nucleated RBC % (auto) 0.0 PT 38.1 H INR 3.3 H Anion Gap 11 L Estim Creat Clear Calc 51.9 Estimated GFR > 60 Fasting Glucose 123 H Calcium 8.2 L Microbiology Microbiology Results: Microbiology 10/15/21 15:11 Blood Culture - Final Blood - Venous No growth after 5 days. 10/15/21 13:59 Blood Culture - Final Blood - Venous No growth after 5 days. Assessment and Plan (1) Seizure: Status: Acute Plan 86M presented iwth sob sepsis and acute on chronic hypoxic respiratory failure acute copd decopmensation due to aspiration pnuemonia and human metapneumovirus continue unasyn continue steroids, bronchodilators, wean o2 as tolerated (baseline 2L) - still 91% on 5L overall improving, would like to get back to baseline o2 prior to discharge seizure eeg negative no AED paroxysmal afib amio, coumadin, monitor inr hld statin gerd ppi hypothyroid synthroid reason for continued hospitalization: still hypoxic, symptomatic Quality Stroke Does the patient have a stroke diagnosis?: No VTE Prior VTE?: No VTE Risk Level:: Medical - moderate - high VTE Device Contraindication: Treatment Not Indicated VTE Drug Contraindication: N/A - Med Ordered
[2021-10-21] MEDS: methylPREDNISolone Sod Succ 40 MG/ML VIAL IVPUSH ×2 (10:25→21:07)
[2021-10-21] MEDS: guaiFENesin DM 600/30 1 TAB TAB.ER.12H PO ×2 (10:26→21:07)
[2021-10-21] MEDS: Magnesium Oxide 400 MG TABLET PO ×2 (10:26→21:07)
[2021-10-21] MEDS: Potassium Chloride ER 20 MEQ TAB.ER.PRT 40 MEQ PO (10:26)
[2021-10-21] MEDS: Levothyroxine Sodium 75 MCG TABLET PO (10:26)
[2021-10-21] MEDS: allopurinoL 100 MG TABLET 50 MG PO (10:26)
[2021-10-21] MEDS: Omeprazole 40 MG CAPSULE.DR PO ×2 (10:26→21:07)
[2021-10-21] MEDS: Amiodarone HCL 200 MG TABLET 100 MG PO (10:27)
[2021-10-21] MEDS: Furosemide 40 MG TABLET PO ×2 (10:27→21:07)
--- NOTE | 2021-10-21 13:45 | MHC.SLORD ---
Speech Language Pathology Order Status: Discussed w/ RN. Per RN, no reported issues swallowing, patient tolerated whole pills with thin liquid. Patient is on chopped/advanced (NDD3) solids and THIN liquids. COMMUNITY RESOURCE OFFICER will continue to follow.
--- NOTE | 2021-10-21 13:54 | MHC.CM.PN ---
EMR REVIEWED, PT REMAINS ON IV SOLU-MEDROL, IV ABX AND 5L O2 NC, WHEN PT DECREASED TO BASELINE O2 OF 2L NC PT O2 SAT DECREASED TO 86%, PER HOSPITALIST NO PLAN FOR D/C AND WOULD LIKE PT AT BASELINE HOME O2 LEVEL PRIOR TO D/C, CM WILL CONT TO FOLLOW D/C NEEDS.
[2021-10-21] MEDS: Atorvastatin Calcium 20 MG TABLET PO (21:07)
[2021-10-21] MEDS: Mirtazapine 15 MG TABLET PO (21:07)
[2021-10-22] VITALS (10 sets, daily range): BP systolic 109–151; BP diastolic 61–84; PULSE 64–96; RESP 15–20; TEMP 35.8–36.9; O2SAT 86–98
[2021-10-22] MEDS: Ampicillin Sodium/Sulbactam Na 1.5 GM in 0.9 % Sodium Chloride 100 ML IV ×4 (02:02→21:37)
[2021-10-22 06:55] LABS: Hematocrit 43.9 % (42.0-52.0); Hemoglobin 13.7 g/dl (14.0-18.0); Mean Corpuscular HGB Conc 31.2 g/dl (31.0-36.0); Mean Corpuscular Volume 89.6 fL (80.0-98.0); Mean Platelet Volume 10.4 fL (9.4-12.4); Platelet Count 168 X10*3/uL (160-400); Red Cell Distribution Width 16.3 % (11.0-16.0); White Blood Count 13.8 X10*3/uL (4.8-10.8)
[2021-10-22] MEDS: Albuterol/Iprat 2.5/0.5MG 3 ML AMPUL.NEB INHALE ×4 (07:43→19:56)
[2021-10-22] MEDS: Fluticasone/Vilanterol 200/25 BLST.W.DEV 1 PUFF INHALE (07:43)
[2021-10-22] MEDS: Magnesium Oxide 400 MG TABLET PO ×2 (09:29→21:37)
[2021-10-22] MEDS: 0.9 % Sodium Chloride Flush 3 ML SYRINGE IVFLUSH ×3 (09:29→21:52)
[2021-10-22] MEDS: allopurinoL 100 MG TABLET 50 MG PO (09:29)
[2021-10-22] MEDS: Omeprazole 40 MG CAPSULE.DR PO ×2 (09:29→21:38)
[2021-10-22] MEDS: guaiFENesin DM 600/30 1 TAB TAB.ER.12H PO ×2 (09:29→21:37)
[2021-10-22] MEDS: Amiodarone HCL 200 MG TABLET 100 MG PO (09:30)
[2021-10-22] MEDS: Furosemide 40 MG TABLET PO ×2 (09:30→21:37)
[2021-10-22] MEDS: Levothyroxine Sodium 75 MCG TABLET PO (09:30)
[2021-10-22] MEDS: methylPREDNISolone Sod Succ 40 MG/ML VIAL IVPUSH ×2 (09:31→21:40)
--- NOTE | 2021-10-22 09:32 | HO.PM.IMPN ---
Subjective Subjective Date of Service: 10/22/21 Interval History: cc: sob interval history: improved, but weak Cardiovascular Cardiovascular: Reports no additional cardiovascular complaints Respiratory Respiratory: Reports no additional respiratory complaints Physical Exam Vital Signs: Vital Signs: Last Vital Signs Temp 97.5 F 10/22/21 07:50 Pulse 64 10/22/21 08:36 Resp 19 10/22/21 07:50 BP 149/84 H 10/22/21 08:36 Pulse Ox 92 10/22/21 08:36 Oxygen Flow Rate 4 10/15/21 13:12 BMI result Body Mass Index 21.4 General: AO X 3, no acute distress Resp:? diminished bilateral, no accessory muscles used CVS: S1,S2,RRR GI: soft, non tender, non distended Neuro:? motor grossly intact, alert Psych: appropriate affect, appropriate insight? Objective Data Active Medications Acetaminophen (Acetaminophen 325 Mg Tablet) 650 mg PO Q6H PRN PRN Reason: Pain, Mild (Pain Scale 1-3) Albuterol/Ipratropium (Albuterol/Iprat 2.5/0.5mg 3 Ml Ampul.Neb) 3 ml INHALE RQ4H WHILE AWAKE [facility] Last Admin: 10/22/21 07:43 Dose: 3 ml Documented by: SHARON Allopurinol (Allopurinol 100 Mg Tablet) 50 mg PO DAILY [facility] Last Admin: 10/22/21 09:29 Dose: 50 mg Documented by: SYLVESTER Amiodarone HCl (Amiodarone Hcl 200 Mg Tablet) 100 mg PO DAILY [facility] Last Admin: 10/22/21 09:30 Dose: 100 mg Documented by: SYLVESTER Atorvastatin Calcium (Atorvastatin Calcium 20 Mg Tablet) 20 mg PO BEDTIME [facility] Last Admin: 10/21/21 21:07 Dose: 20 mg Documented by: HARLEY Docusate Sodium (Docusate Sodium 100 Mg Capsule) 100 mg PO BID PRN PRN Reason: Constipation Fluticasone/Vilanterol (Fluticasone/Vilanterol 200/25 Blst.W.Dev) 1 puff INHALE RDAILY [facility] Last Admin: 10/22/21 07:43 Dose: 1 puff Documented by: SHARON Furosemide (Furosemide 40 Mg Tablet) 40 mg PO BID [facility]; Protocol Last Admin: 10/22/21 09:30 Dose: 40 mg Documented by: SYLVESTER Guaifenesin/Dextromethorphan (Guaifenesin Dm 600/30 1 Tab Tab.Er.12h) 1 tab PO Q12H [facility] Last Admin: 10/22/21 09:29 Dose: 1 tab Documented by: SYLVESTER Ampicillin Sodium/Sulbactam (Sodium 1.5 gm/ Sodium Chloride) 100 mls @ 200 mls/hr IV Q6H [facility] Last Admin: 10/22/21 09:28 Dose: 200 mls/hr Documented by: SYLVESTER Levothyroxine Sodium (Levothyroxine Sodium 75 Mcg Tablet) 75 mcg PO DAILY [facility] Last Admin: 10/22/21 09:30 Dose: 75 mcg Documented by: SYLVESTER Magnesium Oxide (Magnesium Oxide 400 Mg Tablet) 400 mg PO BID [facility] Last Admin: 10/22/21 09:29 Dose: 400 mg Documented by: SYLVESTER Methylprednisolone Sodium Succinate (Methylprednisolone Sod Succ 40 Mg/Ml Vial) 40 mg IVPUSH Q12H [facility] Last Admin: 10/22/21 09:31 Dose: 40 mg Documented by: SYLVESTER Mirtazapine (Mirtazapine 15 Mg Tablet) 15 mg PO BEDTIME [facility] Last Admin: 10/21/21 21:07 Dose: 15 mg Documented by: HARLEY Omeprazole (Omeprazole 40 Mg Capsule.Dr) 40 mg PO BID [facility] Last Admin: 10/22/21 09:29 Dose: 40 mg Documented by: SYLVESTER Ondansetron HCl (Ondansetron Hcl 4 Mg/2 Ml Vial) 4 mg IVPUSH Q8H PRN PRN Reason: Nausea and Vomiting Sodium Chloride (0.9 % Sodium Chloride Flush 3 Ml Syringe) 3 ml IVFLUSH QSHIFT [facility] Last Admin: 10/22/21 09:29 Dose: 3 ml Documented by: SYLVESTER Warfarin Sodium (Warfarin Sodium 2.5 Mg Tablet) 2.5 mg PO DAILY@1800 [facility] Last Admin: 10/20/21 18:56 Dose: Not Given Documented by: TENNILLE Non-Admin Reason: Physician Held Med Labs CBC & Chem 7: 10/22/21 06:03 10/21/21 06:00 Labs: Laboratory Results - last 24 hr 10/22/21 06:03 MCV 89.6 MCH 28.0 MCHC 31.2 RDW 16.3 H Plt Count 168 MPV 10.4 Absolute Nucleated RBC 0.000 Nucleated RBC % (auto) 0.0 Assessment and Plan (1) Seizure: Status: Acute Plan 86M presented iwth sob sepsis and acute on chronic hypoxic respiratory failure acute copd decopmensation due to aspiration pnuemonia and human metapneumovirus continue unasyn continue steroids, bronchodilators, wean o2 as tolerated (baseline 2L) - still 92% on 4L overall improving, would like to get back to baseline o2 prior to discharge PT eval seizure eeg negative no AED paroxysmal afib amio, coumadin, monitor inr hld statin gerd ppi hypothyroid synthroid reason for continued hospitalization: still hypoxic, symptomatic Quality Stroke Does the patient have a stroke diagnosis?: No VTE Prior VTE?: No VTE Risk Level:: Medical - moderate - high VTE Device Contraindication: Treatment Not Indicated VTE Drug Contraindication: N/A - Med Ordered
[2021-10-22 11:19] LABS: INTERNATIONAL NORM RATIO 2.3 (0.9-1.1); Prothrombin Time 26.3 SEC (9.9-13.0)
[2021-10-22 11:35] LABS: Anion Gap 18 (12-20); Blood Urea Nitrogen 43 mg/dL (9-16); Calcium 8.9 mg/dL (8.4-10.2); Carbon Dioxide 27 mmol/L (22-29); Chloride 104 mmol/L (96-108); Creatinine Clr Calc Pharmacy 44.7; Estimated Glomerular Filt Rate > 60; Glucose Fasting 126 mg/dL (60-99); Potassium 3.2 mmol/L (3.3-5.1); Sodium 146 mmol/L (135-145)
--- NOTE | 2021-10-22 14:11 | MHC.CM.PN ---
FAMILY (IN ROOM) REQUESTING [facility] REFERRAL PATIENT AGREES TO THIS REFERRAL PLACED. FACILITY STATES THAT PATIENT IS CLINICALLY ACCEPTED BUT DOES NOT HAVE A BED TODAY CASE MANAGEMENT FOLLOWING FOR BED OFFER FOR MONDAY 10/23. PHYSICIAN, PATIENT, AND FAMILY AWARE
[2021-10-22] MEDS: Warfarin Sodium 2.5 MG TABLET PO (18:28)
[2021-10-22] MEDS: Mirtazapine 15 MG TABLET PO (21:37)
[2021-10-22] MEDS: Atorvastatin Calcium 20 MG TABLET PO (21:38)
[2021-10-23] VITALS (11 sets, daily range): BP systolic 93–133; BP diastolic 54–66; PULSE 54–106; RESP 17–22; TEMP 36.1–36.8; O2SAT 92–96
[2021-10-23] MEDS: Ampicillin Sodium/Sulbactam Na 1.5 GM in 0.9 % Sodium Chloride 100 ML IV ×4 (02:32→21:59)
[2021-10-23 06:37] LABS: Hematocrit 43.6 % (42.0-52.0); Hemoglobin 13.8 g/dl (14.0-18.0); Mean Corpuscular HGB Conc 31.7 g/dl (31.0-36.0); Mean Corpuscular Hemoglobin 28.5 pg (27.0-33.0); Mean Corpuscular Volume 89.9 fL (80.0-98.0); Mean Platelet Volume 11.6 fL (9.4-12.4); Platelet Count 197 X10*3/uL (160-400); Red Blood Count 4.85 X10*6/uL (4.60-5.80); Red Cell Distribution Width 16.4 % (11.0-16.0); White Blood Count 13.9 X10*3/uL (4.8-10.8)
[2021-10-23 07:36] LABS: Anion Gap 16 (12-20); Blood Urea Nitrogen 51 mg/dL (9-16); Calcium 8.7 mg/dL (8.4-10.2); Carbon Dioxide 37 mmol/L (22-29); Chloride 100 mmol/L (96-108); Estimated Glomerular Filt Rate 60; Glucose Fasting 163 mg/dL (60-99); Potassium 2.7 mmol/L (3.3-5.1); Sodium 146 mmol/L (135-145)
[2021-10-23] MEDS: Fluticasone/Vilanterol 200/25 BLST.W.DEV 1 PUFF INHALE (07:52)
[2021-10-23] MEDS: Albuterol/Iprat 2.5/0.5MG 3 ML AMPUL.NEB INHALE ×4 (07:52→19:02)
[2021-10-23 08:28] LABS: INTERNATIONAL NORM RATIO 2.1 (0.9-1.1); Prothrombin Time 24.8 SEC (9.9-13.0)
[2021-10-23] MEDS: 0.9 % Sodium Chloride Flush 3 ML SYRINGE IVFLUSH ×3 (09:22→22:09)
[2021-10-23] MEDS: Potassium Chloride Packet 20 MEQ PACKET 40 MEQ PO (09:27)
[2021-10-23] MEDS: methylPREDNISolone Sod Succ 40 MG/ML VIAL IVPUSH ×2 (09:48→21:59)
--- NOTE | 2021-10-23 12:36 | MHC.SLORD ---
Speech Language Pathology Order Status: Patient sleeping upon arrival of PASSENGER SERVICE AGENT- No PO trials given d/t lethargic state. Family member present, states patient has not been eating or drinking much today. PASSENGER SERVICE AGENT will continue to follow.
--- NOTE | 2021-10-23 15:34 | P.PNIM_ITS ---
Subjective Subjective Date of Service: 10/23/21 Interval History: the patient was seen and evaluated this morning sitting at the edge of the bed, feeling short of breath and more wheezy Denies any fever, chills or chest pain No reported other overnight events. Systemic review: No fever, chills but reported increase weakness No chest pain, palpitation worsening dyspnea, coughing and feeling of wheezes No abdominal pain, nausea or vomiting No urinary symptoms No any rash or wounds Physical Exam Vital Signs: Vital Signs: Last Vital Signs Temp 97.0 F 10/23/21 12:00 Pulse 54 10/23/21 12:00 Resp 19 10/23/21 12:00 BP 133/54 L 10/23/21 12:00 Pulse Ox 93 10/23/21 12:00 Oxygen Flow Rate 4 10/15/21 13:12 BMI result Body Mass Index 21.4 Const: Other: Constitutional : Alert, interactive but in moderate respiratory distress Neck : Normal inspection, Supple Cardiovascular : RRR, no JVP, trace lower extremity edema Respiratory : decreased bilateral air entry, no crackles, bilateral wheezes with using of accessory muscles on occasions Gastrointestinal: soft, lax, Normal bowel sounds, Non tender Skin : Warm, Dry Neurological : Alert & oriented x3, No focal deficit , CN 2-12 within normal Objective Data Active Medications Acetaminophen (Acetaminophen 325 Mg Tablet) 650 mg PO Q6H PRN PRN Reason: Pain, Mild (Pain Scale 1-3) Albuterol/Ipratropium (Albuterol/Iprat 2.5/0.5mg 3 Ml Ampul.Neb) 3 ml INHALE RQ4H WHILE AWAKE [facility] Last Admin: 10/23/21 11:45 Dose: 3 ml Documented by: MYKEL Allopurinol (Allopurinol 100 Mg Tablet) 50 mg PO DAILY [facility] Last Admin: 10/23/21 09:32 Dose: Not Given Documented by: SYLVESTER Non-Admin Reason: unable to take Amiodarone HCl (Amiodarone Hcl 200 Mg Tablet) 100 mg PO DAILY [facility] Last Admin: 10/23/21 09:32 Dose: Not Given Documented by: SYLVESTER Non-Admin Reason: unable to take Atorvastatin Calcium (Atorvastatin Calcium 20 Mg Tablet) 20 mg PO BEDTIME [facility] Last Admin: 10/22/21 21:38 Dose: 20 mg Documented by: HO.WYSK Docusate Sodium (Docusate Sodium 100 Mg Capsule) 100 mg PO BID PRN PRN Reason: Constipation Fluticasone/Vilanterol (Fluticasone/Vilanterol 200/25 Blst.W.Dev) 1 puff INHALE RDAILY [facility] Last Admin: 10/23/21 07:52 Dose: 1 puff Documented by: MYKEL Furosemide (Furosemide 40 Mg Tablet) 40 mg PO BID [facility]; Protocol Last Admin: 10/23/21 09:32 Dose: Not Given Documented by: SYLVESTER Non-Admin Reason: unable to take Guaifenesin/Dextromethorphan (Guaifenesin Dm 600/30 1 Tab Tab.Er.12h) 1 tab PO Q12H [facility] Last Admin: 10/23/21 09:40 Dose: Not Given Documented by: SYLVESTER Non-Admin Reason: unable to take Ampicillin Sodium/Sulbactam (Sodium 1.5 gm/ Sodium Chloride) 100 mls @ 200 ml s/hr IV Q6H [facility] Last Infusion: 10/23/21 10:54 Dose: 0 mls/hr Documented by: SYLVESTER Levothyroxine Sodium (Levothyroxine Sodium 75 Mcg Tablet) 75 mcg PO DAILY [facility] Last Admin: 10/23/21 09:41 Dose: Not Given Documented by: SYLVESTER Non-Admin Reason: unable to take Magnesium Oxide (Magnesium Oxide 400 Mg Tablet) 400 mg PO BID [facility] Last Admin: 10/23/21 09:41 Dose: Not Given Documented by: SYLVESTER Non-Admin Reason: not able to take Methylprednisolone Sodium Succinate (Methylprednisolone Sod Succ 40 Mg/Ml Vial) 40 mg IVPUSH Q12H [facility] Last Admin: 10/23/21 09:48 Dose: 40 mg Documented by: SYLVESTER Mirtazapine (Mirtazapine 15 Mg Tablet) 15 mg PO BEDTIME [facility] Last Admin: 10/22/21 21:37 Dose: 15 mg Documented by: HARLEY Omeprazole (Omeprazole 40 Mg Capsule.Dr) 40 mg PO BID [facility] Last Admin: 10/23/21 09:41 Dose: Not Given Documented by: SYLVESTER Non-Admin Reason: not able to take Ondansetron HCl (Ondansetron Hcl 4 Mg/2 Ml Vial) 4 mg IVPUSH Q8H PRN PRN Reason: Nausea and Vomiting Sodium Chloride (0.9 % Sodium Chloride Flush 3 Ml Syringe) 3 ml IVFLUSH QSHIFT [facility] Last Admin: 10/23/21 09:22 Dose: 3 ml Documented by: SYLVESTER Warfarin Sodium (Warfarin Sodium 2.5 Mg Tablet) 2.5 mg PO DAILY@1800 [facility] Last Admin: 10/22/21 18:28 Dose: 2.5 mg Documented by: SYLVESTER Labs CBC & Chem 7: 10/23/21 06:06 10/23/21 06:06 Labs: Laboratory Results - last 24 hr 10/23/21 10/23/21 10/23/21 06:06 06:06 07:55 MCV 89.9 MCH 28.5 MCHC 31.7 RDW 16.4 H Plt Count 197 MPV 11.6 Absolute Nucleated RBC 0.000 Nucleated RBC % (auto) 0.0 PT 24.8 H INR 2.1 H Anion Gap 16 Estim Creat Clear Calc 42.0 Estimated GFR 60 Fasting Glucose 163 H Calcium 8.7 Assessment and Plan (1) Bronchopneumonia: Status: Acute (2) Seizure: Status: Acute (3) Acute exacerbation of chronic obstructive pulmonary disease: Status: Acute Plan 86M presented iwth sob sepsis , resolved acute on chronic hypoxic respiratory failure 2\2 acute copd decopmensation due to aspiration pnuemonia and human metapneumovirus Feels worse today Repeat CXR continue unasyn continue steroids, bronchodilators, wean o2 as tolerated (baseline 2L) Get pulmonology evaluation would like to get back to baseline o2 prior to discharge PT eval seizure eeg negative Neurology input appreciated,no AED paroxysmal afib amio, coumadin, monitor inr hld statin gerd ppi hypothyroid synthroid reason for continued hospitalization: still hypoxic, symptomatic Quality Stroke Does the patient have a stroke diagnosis?: No VTE Prior VTE?: No VTE Risk Level:: Medical - moderate - high VTE Device Contraindication: Treatment Not Indicated VTE Drug Contraindication: N/A - Med Ordered
[2021-10-23] MEDS: Acetylcysteine 10 % 400 MG/4 ML VIAL INHALE (19:03)
[2021-10-23] MEDS: Furosemide 40 MG TABLET PO (21:59)
[2021-10-24] VITALS (9 sets, daily range): BP systolic 97–132; BP diastolic 55–74; PULSE 80–120; RESP 17–21; TEMP 36.1–37.2; O2SAT 92–100
[2021-10-24] MEDS: Ampicillin Sodium/Sulbactam Na 1.5 GM in 0.9 % Sodium Chloride 100 ML IV ×2 (03:18→09:04)
[2021-10-24 07:00] LABS: INTERNATIONAL NORM RATIO 1.6 (0.9-1.1); Prothrombin Time 18.2 SEC (9.9-13.0)
[2021-10-24] MEDS: Acetylcysteine 10 % 400 MG/4 ML VIAL INHALE (08:15)
[2021-10-24] MEDS: Albuterol/Iprat 2.5/0.5MG 3 ML AMPUL.NEB INHALE ×3 (08:15→15:40)
[2021-10-24] MEDS: Fluticasone/Vilanterol 200/25 BLST.W.DEV 1 PUFF INHALE (08:15)
--- NOTE | 2021-10-24 08:50 | PHA.PROG ---
Admission Date/Time: October 15, 2021 17:51 Indication: RESPIRATORY INFECTION Weight in k.9 kg Adjusted body weight in Kg: [place] body weight in K.4 Obesity Dosing Indication % IBW: Serum Creatinine - Last 168 Hours 10/18/21 10/19/21 10/20/21 06:08 07:27 06:33 Creatinine 1.20 1.10 1.08 10/21/21 10/22/21 10/23/21 06:00 10:59 06:06 Creatinine 0.94 1.09 1.16 Estimated CrCl and GFR - Last 168 Hours 10/18/21 10/19/21 10/20/21 06:08 07:27 06:33 Estim Creat Clear Calc 40.6 44.3 45.1 Estimated GFR 58 > 60 > 60 10/21/21 10/22/21 10/23/21 06:00 10:59 06:06 Estim Creat Clear Calc 51.9 44.7 42.0 Estimated GFR > 60 > 60 60 Vancomycin Loading Dose: 1500 Current Vancomycin Dosing Regimen:1 GRAM Q 24 HOURS Vancomycin Monitoring using AUC goal of 400 - 600 range with trough as surrogate marker: PREDICTED AUC OF 500 Date and Time for next Vancomycin Level to be drawn:WILL CHECK A RANDOM LEVEL FOR TOXICITY AFTER 2 DOSES Pharmacist Comments on Vancomycin Plan: Vancomycin dosing will take advantage of [employer] as a clinical decision support tool that uses Bayesian modeling to calculate individual patient's pharmacokinetic parameters and forecast the patient's drug concentration time course with the target goal AUC 24 range of 400 - 600 mg/L/hr.
[2021-10-24] MEDS: vancomycin HCL 1,500 MG in 0.9 % Sodium Chloride 500 ML 333.33 MG IV (09:03)
[2021-10-24] MEDS: Levothyroxine Sodium 75 MCG TABLET PO (09:04)
[2021-10-24] MEDS: guaiFENesin DM 600/30 1 TAB TAB.ER.12H PO ×2 (09:04→20:27)
[2021-10-24] MEDS: methylPREDNISolone Sod Succ 40 MG/ML VIAL IVPUSH ×2 (09:04→21:07)
[2021-10-24] MEDS: Amiodarone HCL 200 MG TABLET 100 MG PO (09:04)
[2021-10-24] MEDS: Magnesium Oxide 400 MG TABLET PO ×2 (09:05→20:27)
[2021-10-24] MEDS: allopurinoL 100 MG TABLET 50 MG PO (09:05)
[2021-10-24] MEDS: Omeprazole 40 MG CAPSULE.DR PO ×2 (09:05→20:26)
[2021-10-24] MEDS: Furosemide 40 MG TABLET PO (09:05)
[2021-10-24] MEDS: 0.9 % Sodium Chloride Flush 3 ML SYRINGE IVFLUSH ×3 (09:06→20:27)
[2021-10-24 09:16] LABS: Anion Gap 14 (12-20); Blood Urea Nitrogen 53 mg/dL (9-16); Calcium 8.4 mg/dL (8.4-10.2); Carbon Dioxide 34 mmol/L (22-29); Chloride 103 mmol/L (96-108); Creatinine Clr Calc Pharmacy 43.1; Estimated Glomerular Filt Rate > 60; Glucose Random 142 mg/dL (60-115); Potassium 2.6 mmol/L (3.3-5.1); Sodium 148 mmol/L (135-145)
[2021-10-24] MEDS: Potassium Chloride/H20 10 MEQ/100 ML PIGGYBACK 100 MEQ IV ×6 (10:02→16:07)
--- NOTE | 2021-10-24 11:55 | P.PNIM_ITS ---
Subjective Subjective Date of Service: 10/24/21 Interval History: laying in bed, feeling short of breath and Weak His voice Almost disappeared with increase hoarseness of voice Denies any fever, chills or chest pain No reported other overnight events. Systemic review: No fever, chills but reported increase weakness No chest pain, palpitation worsening dyspnea, coughing and feeling of wheezes No abdominal pain, nausea or vomiting No urinary symptoms No any rash or wounds Physical Exam Vital Signs: Vital Signs: Last Vital Signs Temp 98.7 F 10/24/21 11:38 Pulse 106 H 10/24/21 11:38 Resp 19 10/24/21 11:38 BP 132/74 10/24/21 11:38 Pulse Ox 97 10/24/21 11:38 Oxygen Flow Rate 4 10/15/21 13:12 BMI result Body Mass Index 21.4 Const: Other: Constitutional : Alert, interactive but in moderate respiratory distress Neck : Normal inspection, Supple, increased soreness of voice Cardiovascular : RRR, no JVP, trace lower extremity edema Respiratory : decreased bilateral air entry, no crackles, bilateral wheezes with using of accessory muscles on occasions Gastrointestinal: soft, lax, Normal bowel sounds, Non tender Skin : Warm, Dry Neurological : Alert & oriented x3, No focal deficit , CN 2-12 within normal Objective Data Active Medications Acetaminophen (Acetaminophen 325 Mg Tablet) 650 mg PO Q6H PRN PRN Reason: Pain, Mild (Pain Scale 1-3) Acetylcysteine (Acetylcysteine 10 % 400 Mg/4 Ml Vial) 400 mg INHALE RBID [facility] Last Admin: 10/24/21 08:15 Dose: 400 mg Documented by: Albuterol/Ipratropium (Albuterol/Iprat 2.5/0.5mg 3 Ml Ampul.Neb) 3 ml INHALE RQ4H WHILE AWAKE [facility] Last Admin: 10/24/21 11:17 Dose: 3 ml Documented by: MJ Allopurinol (Allopurinol 100 Mg Tablet) 50 mg PO DAILY [facility] Last Admin: 10/24/21 09:05 Dose: 50 mg Documented by: CARMEL Amiodarone HCl (Amiodarone Hcl 200 Mg Tablet) 100 mg PO DAILY [facility] Last Admin: 10/24/21 09:04 Dose: 100 mg Documented by: CARMEL Atorvastatin Calcium (Atorvastatin Calcium 20 Mg Tablet) 20 mg PO BEDTIME [facility] Last Admin: 10/23/21 22:04 Dose: Not Given Documented by: SEA Non-Admin Reason: Patient Refused Docusate Sodium (Docusate Sodium 100 Mg Capsule) 100 mg PO BID PRN PRN Reason: Constipation Fluticasone/Vilanterol (Fluticasone/Vilanterol 200/25 Blst.W.Dev) 1 puff INHALE RDAILY [facility] Last Admin: 10/24/21 08:15 Dose: 1 puff Documented by: MJ Furosemide (Furosemide 40 Mg Tablet) 40 mg PO BID [facility]; Protocol Last Admin: 10/24/21 09:05 Dose: 40 mg Documented by: CARMEL Guaifenesin/Dextromethorphan (Guaifenesin Dm 600/30 1 Tab Tab.Er.12h) 1 tab PO Q12H [facility] Last Admin: 10/24/21 09:04 Dose: 1 tab Documented by: CARMEL Ampicillin Sodium/Sulbactam (Sodium 1.5 gm/ Sodium Chloride) 100 mls @ 200 mls/hr IV Q6H [facility] Last Infusion: 10/24/21 09:41 Dose: 0 mls/hr Documented by: CARMEL Vancomycin HCl 1,000 mg/ (Sodium Chloride) 270 mls @ 270 mls/hr IV Q24H [facility] Potassium Chloride () 10 meq in 100 mls @ 100 mls/hr IV Q1H [facility] Stop: 10/24/21 15:29 Last Admin: 10/24/21 11:08 Dose: 100 mls/hr Documented by: CARMEL Levothyroxine Sodium (Levothyroxine Sodium 75 Mcg Tablet) 75 mcg PO DAILY [facility] Last Admin: 10/24/21 09:04 Dose: 75 mcg Documented by: CARMEL Magnesium Oxide (Magnesium Oxide 400 Mg Tablet) 400 mg PO BID [facility] Last Admin: 10/24/21 09:05 Dose: 400 mg Documented by: CARMEL Methylprednisolone Sodium Succinate (Methylprednisolone Sod Succ 40 Mg/Ml Vial) 40 mg IVPUSH Q12H [facility] Last Admin: 10/24/21 09:04 Dose: 40 mg Documented by: CARMEL Mirtazapine (Mirtazapine 15 Mg Tablet) 15 mg PO BEDTIME [facility] Last Admin: 10/23/21 22:04 Dose: Not Given Documented by: SEA Non-Admin Reason: Patient Refused Omeprazole (Omeprazole 40 Mg Geovanni.) 40 mg PO BID [facility] Last Admin: 10/24/21 09:05 Dose: 40 mg Documented by: CARMEL Ondansetron HCl (Ondansetron Hcl 4 Mg/2 Ml Vial) 4 mg IVPUSH Q8H PRN PRN Reason: Nausea and Vomiting Pharmacy Consult (Consult Rx Vancomycin Dosing) 1 each MISCELLANE DAILY PRN PRN Reason: Consult order Sodium Chloride (0.9 % Sodium Chloride Flush 3 Ml Syringe) 3 ml IVFLUSH QSHIFT [facility] Last Admin: 10/24/21 09:06 Dose: 3 ml Documented by: CARMEL Warfarin Sodium (Warfarin Sodium 3 Mg Tablet) 3 mg PO DAILY@1800 [facility] Labs CBC & Chem 7: 10/23/21 06:06 10/24/21 08:34 Labs: Laboratory Results - last 24 hr 10/24/21 10/24/21 05:59 08:34 PT 18.2 H INR 1.6 H Anion Gap 14 Estim Creat Clear Calc 43.1 Estimated GFR > 60 Random Glucose 142 H Calcium 8.4 Assessment and Plan (1) Bronchopneumonia: Status: Acute (2) Acute exacerbation of chronic obstructive pulmonary disease: Status: Acute Plan 86M presented With sob sepsis , resolved acute on chronic hypoxic respiratory failure, improved 2\2 acute copd decopmensation due to aspiration pnuemonia and human metapneumovirus Feels worse today Repeat CXR showing worsened left lower lobe infiltrate continue unasyn and add vancomycin continue steroids, bronchodilators, wean o2 as tolerated (baseline 2L) pending pulmonology evaluation PT recommended SNF placement seizure had 1 episode of seizure, no recurrence during hospital stay eeg negative Neurology input appreciated,no AED paroxysmal afib amio, coumadin, monitor inr hld statin gerd ppi hypothyroid synthroid reason for continued hospitalization: still hypoxic, symptomaticWith increased dyspnea and hoarseness of voice to continue treatment with antibiotics and nebulizers to prevent possible decompensation into hypoxic respiratory failure and severe sepsis. Quality Stroke Does the patient have a stroke diagnosis?: No VTE Prior VTE?: No VTE Risk Level:: Medical - moderate - high VTE Device Contraindication: Treatment Not Indicated VTE Drug Contraindication: N/A - Med Ordered
--- NOTE | 2021-10-24 12:28 | PM.CNPUL ---
History of Present Illness History of Present Illness Consult date: 10/24/21 Chief complaint: hcap, seizure Narrative: This is an inpatient pulmonary consultation. The patient is an 86 year old man presenting with worsening sob, worse over the last 2 days. He reported increase in oxygen use, using at night now. He felt weak and had a cough. He saw his PCP and was started on steroids and an antibiotic about 10 days ago. EMS was called. In the ED, he had a seizure with loss of bladder and shaking of hims with tachycardia, hypertension. he denied hx of seizures in the past. He was stablized and during the interview stated that he felt a hot flash prior to the seizure episode. He was noted to have fever and hypotension with oxygen at 90% on 6 liters. He had a CT scan of the chest demonstrating bibasilar pneumonias left more than right. He was placed on broad-spectrum antibiotics for Hcap including Unasyn and vancomycin. However, he has been slow to recover. His respiratory viral panel came back positive for human metapneumovirus likely exacerbating his obstructive airway disease. He still having issue with mucus plugging and congestion. Respiratory did provide him with an Acapella valve in order to clear the mucus better. Review of Systems Review of Systems: Denies any recent fever chills or decrease in appetite respiratory +cough cardiovascular denied chest pain gastrointestinal denies any dysphagia abdominal pain nausea vomiting or diarrhea genitourinary denies any dysuria frequency or hematuria musculoskeletal denies any joint pain or swelling neuropsych denies any weakness or seizures all other systems reviewed are negative Cardiovascular: Cardiovascular: Reports dyspnea Respiratory: Respiratory: Reports chest congestion, Reports cough, Reports dyspnea and Reports wheezing Allergic/Immunologic: Allergic/Immunologic: Reports wheezing [facility] Past Medical History Medical History (Updated 10/24/21 @ 12:34 by Job Curran MD) COPD (chronic obstructive pulmonary disease) Esophageal dysphagia Essential hypertension History of hiatal hernia Left bundle branch block NICM (nonischemic cardiomyopathy) Nonrheumatic aortic (valve) stenosis Paroxysmal atrial fibrillation Viral syndrome Family History Family History Father No problems noted. Mother No problems noted. Surgical History Surgical History History of inguinal hernia repair Social History Social History Household Members: Spouse Housing: House Do you presently have visiting nurse or other home services: Yes Alcohol intake: current Alcohol intake frequency: 0-2 drinks per day Patient Tobacco Use Status: Former Tobacco user Advance Directives Date on File: 10/16/21 service: No Current occupational status: retired Meds Allergies Allergy/AdvReac Type Severity Reaction Status Date / Time No Known Allergies Allergy Verified 10/15/21 13:12 Active Medications: Current Medications Acetaminophen (Acetaminophen 325 Mg Tablet) 650 mg PO Q6H PRN PRN Reason: Pain, Mild (Pain Scale 1-3) Acetylcysteine (Acetylcysteine 10 % 400 Mg/4 Ml Vial) 400 mg INHALE RBID [facility] Last Admin: 10/24/21 08:15 Dose: 400 mg Documented by: Albuterol/Ipratropium (Albuterol/Iprat 2.5/0.5mg 3 Ml Ampul.Neb) 3 ml INHALE RQ4H WHILE AWAKE [facility] Last Admin: 10/24/21 11:17 Dose: 3 ml Documented by: Allopurinol (Allopurinol 100 Mg Tablet) 50 mg PO DAILY [facility] Last Admin: 10/24/21 09:05 Dose: 50 mg Documented by: Amiodarone HCl (Amiodarone Hcl 200 Mg Tablet) 100 mg PO DAILY [facility] Last Admin: 10/24/21 09:04 Dose: 100 mg Documented by: Atorvastatin Calcium (Atorvastatin Calcium 20 Mg Tablet) 20 mg PO BEDTIME [facility] Last Admin: 10/23/21 22:04 Dose: Not Given Documented by: Docusate Sodium (Docusate Sodium 100 Mg Capsule) 100 mg PO BID PRN PRN Reason: Constipation Fluticasone/Vilanterol (Fluticasone/Vilanterol 200/25 Blst.W.Dev) 1 puff INHALE RDAILY [facility] Last Admin: 10/24/21 08:15 Dose: 1 puff Documented by: Furosemide (Furosemide 40 Mg Tablet) 40 mg PO BID [facility]; Protocol Last Admin: 10/24/21 09:05 Dose: 40 mg Documented by: Guaifenesin/Dextromethorphan (Guaifenesin Dm 600/30 1 Tab Tab.Er.12h) 1 tab PO Q12H [facility] Last Admin: 10/24/21 09:04 Dose: 1 tab Documented by: Potassium Chloride () 10 meq in 100 mls @ 100 mls/hr IV Q1H [facility] Stop: 10/24/21 15:29 Last Admin: 10/24/21 11:08 Dose: 100 mls/hr Documented by: Doxycycline Hyclate 100 mg/ (Sodium Chloride) 250 mls @ 166.67 mls/hr IV Q12H [facility] Levothyroxine Sodium (Levothyroxine Sodium 75 Mcg Tablet) 75 mcg PO DAILY [facility] Last Admin: 10/24/21 09:04 Dose: 75 mcg Documented by: Magnesium Oxide (Magnesium Oxide 400 Mg Tablet) 400 mg PO BID [facility] Last Admin: 10/24/21 09:05 Dose: 400 mg Documented by: Methylprednisolone Sodium Succinate (Methylprednisolone Sod Succ 40 Mg/Ml Vial) 40 mg IVPUSH Q12H [facility] Last Admin: 10/24/21 09:04 Dose: 40 mg Documented by: Mirtazapine (Mirtazapine 15 Mg Tablet) 15 mg PO BEDTIME [facility] Last Admin: 10/23/21 22:04 Dose: Not Given Documented by: Omeprazole (Omeprazole 40 Mg Capsule.Dr) 40 mg PO BID [facility] Last Admin: 10/24/21 09:05 Dose: 40 mg Documented by: Ondansetron HCl (Ondansetron Hcl 4 Mg/2 Ml Vial) 4 mg IVPUSH Q8H PRN PRN Reason: Nausea and Vomiting Pharmacy Consult (Consult Rx Vancomycin Dosing) 1 each MISCELLANE DAILY PRN PRN Reason: Consult order Sodium Chloride (0.9 % Sodium Chloride Flush 3 Ml Syringe) 3 ml IVFLUSH QSHIFT [facility] Last Admin: 10/24/21 09:06 Dose: 3 ml Documented by: Warfarin Sodium (Warfarin Sodium 3 Mg Tablet) 3 mg PO DAILY@1800 [facility] Home Medications Medication Instructions Recorded Confirmed Last Taken Type allopurinol 300 mg tablet 300 mg PO DAILY 07/16/20 10/15/21 10/15/21 History ipratropium 0.5 mg-albuterol 3 mg 3 ml INHALATION QID PRN 07/16/20 10/15/21 10/15/21 History (2.5 mg base)/3 mL nebulization soln levothyroxine 75 mcg tablet 75 mcg PO DAILY 07/16/20 10/15/21 10/15/21 History mirtazapine 15 mg tablet 15 mg PO BEDTIME 07/16/20 10/15/21 10/14/21 History potassium chloride 20 mEq 20 meq PO DAILY 07/16/20 10/15/21 10/15/21 History tablet,extended release(part/cryst) simvastatin 40 mg tablet 40 mg PO BEDTIME 07/16/20 10/15/21 10/14/21 History warfarin 2.5 mg tablet 2.5 mg PO BEDTIME 07/16/20 10/15/21 10/14/21 History omeprazole 40 mg capsule,delayed 40 mg PO BID cap 01/23/21 10/15/21 10/15/21 History release albuterol sulfate 2.5 mg INHALATION Q6H PRN 09/19/21 10/15/21 10/15/21 History magnesium oxide 400 mg PO BID 09/19/21 10/15/21 10/15/21 History albuterol sulfate 90 mcg/actuation 1 inh INHALATION Q4H PRN 10/15/21 10/15/21 10/15/21 History aerosol inhaler (Ventolin HFA) amiodarone 200 mg tablet 0.5 tab PO DAILY 10/15/21 10/15/21 10/15/21 History cefuroxime axetil 500 mg tablet 1 tab PO BID 10/15/21 10/15/21 10/15/21 History dextromethorphan-guaifenesin 30 1 tab PO Q12H 10/15/21 10/15/21 10/15/21 History mg-600 mg tablet extended [id number] hr (Mucinex DM) docusate sodium 100 mg capsule 100 mg PO BID PRN 10/15/21 10/15/21 Unknown History (Colace) furosemide 40 mg tablet 1 tab PO BID 10/15/21 10/15/21 10/15/21 History Physical Exam Vital Signs: Vital Signs: Last Vital Signs Temp 98.7 F 10/24/21 11:38 Pulse 106 H 10/24/21 11:38 Resp 10/24/21 11:38 BP 132/74 10/24/21 11:38 Pulse Ox 97 10/24/21 11:38 Oxygen Flow Rate 4 10/15/21 13:12 BMI result Body Mass Index 21.4 Const: General: alert Neck: Neck: Yes normal visual inspection, Yes full ROM and Yes no lymphadenopathy Chest: Chest palpation & inspection: normal inspection of the chest Resp: Auscultation: rhonchi and diminished lung sounds Cardio: Rate: regular rate Rhythm: regular rhythm Heart sounds: S1 normal heart sound present and S2 normal heart sound present GI: Palpation (GI): Soft to palpation and nontender Auscultation: normal bowel sounds Skin: General skin exam: rashes and/or lesions noted Results Laboratory Findings CBC and BMP: 10/23/21 06:06 10/24/21 08:34 ABG, PT/INR, D-dimer: PT/INR, D-dimer PT 18.2 SEC (9.9-13.0) H 10/24/21 05:59 INR 1.6 (0.9-1.1) H 10/24/21 05:59 Abnormal lab findings: Abnormal Labs 10/15/21 10/15/21 10/15/21 13:21 13:21 14:22 WBC 12.8 H RBC Hgb 13.1 L Hct 41.1 L RDW Plt Count 156 L D Immature Gran % (Auto) 1.2 H Neut % (Auto) 89.2 H Lymph % (Auto) 1.3 L Lymph # (Auto) 0.2 L Abs Immat Gran (auto) 0.15 H Absolute Neuts (auto) 11.4 H PT INR ABG pCO2 at Pt Temp 48 H ABG pO2 at Pt Temp 59 L ABG HCO3 33 H Sodium Potassium Carbon Dioxide 32 H Anion Gap BUN 37 H POC Glucose Random Glucose Fasting Glucose Calcium Total Protein 5.9 L Albumin 3.3 L Human Metapneumovir PCR 10/15/21 10/16/21 10/16/21 23:01 07:19 07:19 WBC 14.1 H RBC 4.45 L Hgb 12.7 L Hct 39.8 L RDW Plt Count 130 L Immature Gran % (Auto) 0.8 H Neut % (Auto) 93.7 H Lymph % (Auto) 1.3 L Lymph # (Auto) 0.2 L Abs Immat Gran (auto) 0.11 H Absolute Neuts (auto) 13.2 H PT 64.3 H INR 5.5 H* D ABG pCO2 at Pt Temp ABG pO2 at Pt Temp ABG HCO3 Sodium Potassium Carbon Dioxide Anion Gap BUN 34 H POC Glucose Random Glucose 127 H Fasting Glucose Calcium Total Protein Albumin Human Metapneumovir PCR 10/16/21 10/16/21 10/16/21 07:19 07:50 12:09 WBC RBC Hgb Hct RDW Plt Count Immature Gran % (Auto) Neut % (Auto) Lymph % (Auto) Lymph # (Auto) Abs Immat Gran (auto) Absolute Neuts (auto) PT 59.4 H INR 5.0 H* ABG pCO2 at Pt Temp ABG pO2 at Pt Temp ABG HCO3 Sodium Potassium Carbon Dioxide Anion Gap BUN POC Glucose 134 H Random Glucose Fasting Glucose Calcium Total Protein Albumin Human Metapneumovir PCR Detected A 10/17/21 10/17/21 10/17/21 06:45 06:45 06:45 WBC 13.9 H RBC 4.40 L Hgb 12.3 L Hct 38.7 L RDW 16.3 H Plt Count 134 L Immature Gran % (Auto) Neut % (Auto) Lymph % (Auto) Lymph # (Auto) Abs Immat Gran (auto) Absolute Neuts (auto) PT 54.8 H INR 4.7 H ABG pCO2 at Pt Temp ABG pO2 at Pt Temp ABG HCO3 Sodium Potassium 2.6 L D Carbon Dioxide 31 H Anion Gap BUN 32 H POC Glucose Random Glucose Fasting Glucose 136 H Calcium Total Protein Albumin Human Metapneumovir PCR 10/18/21 10/18/21 10/18/21 06:08 06:08 06:08 WBC 15.5 H RBC Hgb 13.7 L Hct RDW 16.3 H Plt Count 138 L Immature Gran % (Auto) Neut % (Auto) Lymph % (Auto) Lymph # (Auto) Abs Immat Gran (auto) Absolute Neuts (auto) PT 40.9 H INR 3.5 H ABG pCO2 at Pt Temp ABG pO2 at Pt Temp ABG HCO3 Sodium Potassium Carbon Dioxide 30 H Anion Gap BUN 44 H POC Glucose Random Glucose Fasting Glucose 139 H Calcium Total Protein Albumin Human Metapneumovir PCR 10/19/21 10/19/21 10/19/21 07:27 07:27 10:10 WBC 13.1 H RBC 4.51 L Hgb 12.8 L Hct 40.6 L RDW 16.4 H Plt Count 145 L Immature Gran % (Auto) Neut % (Auto) Lymph % (Auto) Lymph # (Auto) Abs Immat Gran (auto) Absolute Neuts (auto) PT 37.9 H INR 3.3 H ABG pCO2 at Pt Temp ABG pO2 at Pt Temp ABG HCO3 Sodium Potassium 3.2 L Carbon Dioxide 32 H Anion Gap BUN 39 H POC Glucose Random Glucose Fasting Glucose 152 H Calcium Total Protein Albumin Human Metapneumovir PCR 10/20/21 10/20/21 10/20/21 06:33 06:33 07:34 WBC 12.1 H RBC 4.49 L Hgb 12.6 L Hct 39.8 L RDW 16.3 H Plt Count 149 L Immature Gran % (Auto) Neut % (Auto) Lymph % (Auto) Lymph # (Auto) Abs Immat Gran (auto) Absolute Neuts (auto) PT 40.9 H INR 3.5 H ABG pCO2 at Pt Temp ABG pO2 at Pt Temp ABG HCO3 Sodium Potassium 2.7 L Carbon Dioxide 35 H Anion Gap BUN 39 H POC Glucose Random Glucose Fasting Glucose 142 H Calcium 8.1 L Total Protein Albumin Human Metapneumovir PCR 10/21/21 10/21/21 10/21/21 06:00 06:00 08:36 WBC 11.4 H RBC 4.24 L Hgb 12.2 L Hct 38.0 L RDW 16.3 H Plt Count 152 L Immature Gran % (Auto) Neut % (Auto) Lymph % (Auto) Lymph # (Auto) Abs Immat Gran (auto) Absolute Neuts (auto) PT 38.1 H INR 3.3 H ABG pCO2 at Pt Temp ABG pO2 at Pt Temp ABG HCO3 Sodium Potassium 2.9 L Carbon Dioxide 35 H Anion Gap 11 L BUN 40 H POC Glucose Random Glucose Fasting Glucose 123 H Calcium 8.2 L Total Protein Albumin Human Metapneumovir PCR 10/22/21 10/22/21 10/22/21 06:03 10:59 10:59 WBC 13.8 H RBC Hgb 13.7 L Hct RDW 16.3 H Plt Count Immature Gran % (Auto) Neut % (Auto) Lymph % (Auto) Lymph # (Auto) Abs Immat Gran (auto) Absolute Neuts (auto) PT 26.3 H INR 2.3 H ABG pCO2 at Pt Temp ABG pO2 at Pt Temp ABG HCO3 Sodium 146 H Potassium 3.2 L Carbon Dioxide Anion Gap BUN 43 H POC Glucose Random Glucose Fasting Glucose 126 H Calcium Total Protein Albumin Human Metapneumovir PCR 10/23/21 10/23/21 10/23/21 06:06 06:06 07:55 WBC 13.9 H RBC Hgb 13.8 L Hct RDW 16.4 H Plt Count Immature Gran % (Auto) Neut % (Auto) Lymph % (Auto) Lymph # (Auto) Abs Immat Gran (auto) Absolute Neuts (auto) PT 24.8 H INR 2.1 H ABG pCO2 at Pt Temp ABG pO2 at Pt Temp ABG HCO3 Sodium 146 H Potassium 2.7 L Carbon Dioxide 37 H Anion Gap BUN 51 H POC Glucose Random Glucose Fasting Glucose 163 H Calcium Total Protein Albumin Human Metapneumovir PCR 10/24/21 10/24/21 05:59 08:34 WBC RBC Hgb Hct RDW Plt Count Immature Gran % (Auto) Neut % (Auto) Lymph % (Auto) Lymph # (Auto) Abs Immat Gran (auto) Absolute Neuts (auto) PT 18.2 H INR 1.6 H ABG pCO2 at Pt Temp ABG pO2 at Pt Temp ABG HCO3 Sodium 148 H Potassium 2.6 L Carbon Dioxide 34 H Anion Gap BUN 53 H POC Glucose Random Glucose 142 H Fasting Glucose Calcium Total Protein Albumin Human Metapneumovir PCR Microbiology: Microbiology 10/15/21 15:11 Blood - Venous Blood Culture - Final No growth after 5 days. 10/15/21 13:59 Blood - Venous Blood Culture - Final No growth after 5 days. Assessment and Plan (1) Bronchopneumonia: Status: Acute (2) Acute exacerbation of chronic obstructive pulmonary disease: Status: Acute (3) Viral syndrome: Status: Acute Plan Continue Solumedrol D/C Unasyn/Vanco Start Doxycycline x 10 days Nebs CPT with acapella valve OOB to recliner Procedures Date of Service Date of Service: 10/24/21
--- NOTE | 2021-10-24 14:58 | MHC.CM.PN ---
ALTHOUGH SYMPTOMS SLIGHTLY IMPROVED, NOT CLEAR FOR DC YET [facility] MADE AWARE. FACILITY MAY NO LONGER BE ABLE TO OFFER FACILITY ALSO IS ASKING FOR DOCUMENTATION STATING PATIENT'S PRECAUTION STATUS UPON DISCHARGE
--- NOTE | 2021-10-24 15:05 | MHC.SLORD ---
Speech Language Pathology Order Status: Attempted to see Pt this a.m. Pt was markedly lethargic. who was present reported that Pt had not eaten this morning, did not have appetite. Did not attempt P.O. trials due to Pt's physical state. Will continue to follow.
[2021-10-24 15:38] LABS: Anion Gap 10 (12-20); Blood Urea Nitrogen 51 mg/dL (9-16); Carbon Dioxide 35 mmol/L (22-29); Chloride 108 mmol/L (96-108); Creatinine Clr Calc Pharmacy 46.4; Estimated Glomerular Filt Rate > 60; Glucose Random 129 mg/dL (60-115); Potassium 3.4 mmol/L (3.3-5.1); Sodium 150 mmol/L (135-145)
[2021-10-24] MEDS: Doxycycline Hyclate 100 MG in 0.9 % Sodium Chloride 250 ML 166.67 MG IV (18:24)
[2021-10-24] MEDS: Warfarin Sodium 3 MG TABLET PO (18:24)
[2021-10-24] MEDS: Atorvastatin Calcium 20 MG TABLET PO (20:27)
[2021-10-24] MEDS: Mirtazapine 15 MG TABLET PO (20:27)
[2021-10-25] VITALS (13 sets, daily range): BP systolic 105–145; BP diastolic 56–73; PULSE 74–120; RESP 16–22; TEMP 36.3–37.3; O2SAT 90–100
--- NOTE | 2021-10-25 03:15 | PC.NURSE ---
Pt noted with systolic BP at 90s, with poor po intake, weak gurgling cough, DR. henriquez made aware, scheduled Lasix po held. ALso noted around 12mn, with O2 sats at 87-90% with 3.5 L/min via NC , O2 increased to 5L/min, O2 sats went to 90-93%, put on cont O2 monitor.
[2021-10-25 05:07] LABS: Hematocrit 41.2 % (42.0-52.0); Mean Corpuscular HGB Conc 31.6 g/dl (31.0-36.0); Mean Corpuscular Hemoglobin 28.6 pg (27.0-33.0); Mean Corpuscular Volume 90.5 fL (80.0-98.0); Mean Platelet Volume 11.2 fL (9.4-12.4); Platelet Count 174 X10*3/uL (160-400); Red Blood Count 4.55 X10*6/uL (4.60-5.80); Red Cell Distribution Width 16.5 % (11.0-16.0); White Blood Count 14.7 X10*3/uL (4.8-10.8)
[2021-10-25 05:12] LABS: INTERNATIONAL NORM RATIO 1.5 (0.9-1.1); Prothrombin Time 17.2 SEC (9.9-13.0)
[2021-10-25 05:50] LABS: Anion Gap 9 (12-20); Blood Urea Nitrogen 56 mg/dL (9-16); Calcium 8.3 mg/dL (8.4-10.2); Carbon Dioxide 36 mmol/L (22-29); Chloride 109 mmol/L (96-108); Creatinine Clr Calc Pharmacy 42.4; Estimated Glomerular Filt Rate > 60; Glucose Random 127 mg/dL (60-115); Potassium 3.4 mmol/L (3.3-5.1); Sodium 151 mmol/L (135-145)
[2021-10-25] MEDS: Doxycycline Hyclate 100 MG in 0.9 % Sodium Chloride 250 ML 166.67 MG IV ×2 (06:03→18:10)
[2021-10-25] MEDS: Acetylcysteine 10 % 400 MG/4 ML VIAL INHALE ×2 (08:11→19:41)
[2021-10-25] MEDS: Albuterol/Iprat 2.5/0.5MG 3 ML AMPUL.NEB INHALE ×4 (08:11→19:41)
[2021-10-25] MEDS: Fluticasone/Vilanterol 200/25 BLST.W.DEV 1 PUFF INHALE (08:15)
[2021-10-25] MEDS: allopurinoL 100 MG TABLET 50 MG PO (09:43)
[2021-10-25] MEDS: guaiFENesin DM 600/30 1 TAB TAB.ER.12H PO ×2 (09:43→21:20)
[2021-10-25] MEDS: Omeprazole 40 MG CAPSULE.DR PO ×2 (09:43→21:21)
[2021-10-25] MEDS: 0.9 % Sodium Chloride Flush 3 ML SYRINGE IVFLUSH (09:43)
[2021-10-25] MEDS: KCl 20 mEq in 5 % Dextrose 20 MEQ/1,000 ML IV.SOLN 100 MEQ IVCONT ×2 (09:43→21:22)
[2021-10-25] MEDS: Magnesium Oxide 400 MG TABLET PO ×2 (09:43→21:21)
[2021-10-25] MEDS: Levothyroxine Sodium 75 MCG TABLET PO (09:44)
[2021-10-25] MEDS: Amiodarone HCL 200 MG TABLET 100 MG PO (09:44)
[2021-10-25] MEDS: methylPREDNISolone Sod Succ 40 MG/ML VIAL IVPUSH ×2 (09:52→21:20)
--- NOTE | 2021-10-25 11:13 | MHC.SL.SWA ---
Speech Pathologist Impression: Oropharyngeal dysphagia Risk of Aspiration Due to: Medically Fragile Dysphasia Diet Status: Downgrade Coughing with thin liquid. Liquid Consistency and Strategies for Safe Swallow: Liquid Intake Recommendation: [place] Thick Liquid Intake Strategies: Small Sips No Straws Solid Food Consistency: Dietary Recommendations: Chopped/Advanced (NDD3) Oral Medication Intake: Crushed with Puree Please contact the pharmacy regarding appropriate crushable or liquid drug formulations that are available whenever modified delivery is recommended. Compensatory Strategies and Precautions to be Taken for Safe Swallow: Sitting Upright (90 deg) Small Bites and Sips Alternate Liquids/Solids Rate of Ingestion Change Avoid Specific Foods Supervision While Eating and Drinking for Safe Swallow: Total Supervision (1:1) Foods to Avoid: Difficult to chew solids Swallowing Recommended Treatments: Compens. Strategy Educat. Recommendation for Speech: Inpatient Speech Therapy Comment: PRODUCT DEVELOPMENT SPECIALIST will continue to follow Frequency/Duration: M-F Date Range for Service Req: Timeline to reassess: Brush Head Maker Clinican/Clinical Fellow: No Supervisory Statement: I have reviewed and agree with the student/clinical fellow's documentation: N/A Speech Language Pathologist: Ashlyn Garcia M.A., CCC-PRODUCT DEVELOPMENT SPECIALIST
--- NOTE | 2021-10-25 12:49 | P.CDIC_ITS ---
CDI Concurrent Query Documentation Clarification: PHYSICIAN'S DOCUMENTATION REQUEST Date of Query: 10/25/21 1249 Patient Name: Antoine Hernandez Admit Date: 10/15/21 Dear Doctor, A review of the medical record indicates additional documentation may be needed. Please review below and update the documentation accordingly. Clinical Indicators: Risk Factors/Clinical Indicators/Treatments Lab findings: sodium 148 150 151 H Sodium chloride Based on the above, could you clarify in the Progress Notes the appropriate diagnosis, if significant, that supports the above abnormalities and additional evaluation, monitoring, and/or treatment rendered: * Hypernatremia or other etiology of lab findings * Labs indicate a diagnosis of (please specify) * Other (please specify) * Unable to determine Use of terms such as suspected, likely, concern for, or probable (associated with a specific diagnosis that is being evaluated, monitored, or treated as if it exists) are acceptable and can be coded in the inpatient setting, when documented at the time of discharge. Thank you, Niurka Howard [facility], CDIS Extension: [phone] Please use your independent medical judgment in providing your response. THIS QUERY IS PART OF THE PERMANENT MEDICAL RECORD Provider Response: Other Other Diagnosis: hypernatremia
--- NOTE | 2021-10-25 13:52 | HO.PM.IMPN ---
Subjective Subjective Date of Service: 10/25/21 Interval History: laying in bed, feeling mild improvement in yesterday His voice Almost disappeared from hoarseness Denies any fever, chills or chest pain No reported other overnight events. Systemic review: No fever, chills but reported increase weakness No chest pain, palpitation still having dyspnea, coughing and feeling of wheezes No abdominal pain, nausea or vomiting No urinary symptoms No any rash or wounds Physical Exam Vital Signs: Vital Signs: Last Vital Signs Temp 97.3 F 10/25/21 11:52 Pulse 75 10/25/21 11:52 Resp 19 10/25/21 11:52 BP 129/70 10/25/21 11:52 Pulse Ox 97 10/25/21 11:52 Oxygen Flow Rate 4 10/15/21 13:12 BMI result Body Mass Index 21.4 Const: Other: Constitutional : Alert, interactive but in mild respiratory distress Neck : Normal inspection, Supple, increased soreness of voice Cardiovascular : RRR, no JVP, trace lower extremity edema Respiratory : still significantly decreased bilateral air entry, no crackles, bilateral wheezes , on oxygen supplement Gastrointestinal: soft, lax, Normal bowel sounds, Non tender Skin : Warm, Dry Neurological : Alert & oriented x3, No focal deficit , CN 2-12 within normal Objective Data Active Medications Acetaminophen (Acetaminophen 325 Mg Tablet) 650 mg PO Q6H PRN PRN Reason: Pain, Mild (Pain Scale 1-3) Acetylcysteine (Acetylcysteine 10 % 400 Mg/4 Ml Vial) 400 mg INHALE RBID [facility] Last Admin: 10/25/21 08:11 Dose: 400 mg Documented by: MYKEL Albuterol/Ipratropium (Albuterol/Iprat 2.5/0.5mg 3 Ml Ampul.Neb) 3 ml INHALE RQ4H WHILE AWAKE [facility] Last Admin: 10/25/21 11:34 Dose: 3 ml Documented by: PIA Allopurinol (Allopurinol 100 Mg Tablet) 50 mg PO DAILY [facility] Last Admin: 10/25/21 09:43 Dose: 50 mg Documented by: FRANCIE Amiodarone HCl (Amiodarone Hcl 200 Mg Tablet) 100 mg PO DAILY [facility] Last Admin: 10/25/21 09:44 Dose: 100 mg Documented by: FRANCIE Atorvastatin Calcium (Atorvastatin Calcium 20 Mg Tablet) 20 mg PO BEDTIME [facility] Last Admin: 10/24/21 20:27 Dose: 20 mg Documented by: MANISHA Docusate Sodium (Docusate Sodium 100 Mg Capsule) 100 mg PO BID PRN PRN Reason: Constipation Fluticasone/Vilanterol (Fluticasone/Vilanterol 200/25 Blst.W.Dev) 1 puff INHALE RDAILY [facility] Last Admin: 10/25/21 08:15 Dose: 1 puff Documented by: MYKEL Furosemide (Furosemide 40 Mg Tablet) 40 mg PO BID [facility]; Protocol Last Admin: 10/24/21 21:50 Dose: Not Given Documented by: MANISHA Non-Admin Reason: sys BP 90s, held as per Casie Ritter Guaifenesin/Dextromethorphan (Guaifenesin Dm 600/30 1 Tab Tab.Er.12h) 1 tab PO Q12H [facility] Last Admin: 10/25/21 09:43 Dose: 1 tab Documented by: FRANCIE Doxycycline Hyclate 100 mg/ (Sodium Chloride) 250 mls @ 166.67 mls/hr IV Q12H [facility] Last Infusion: 10/25/21 07:35 Dose: 0 mls/hr Documented by: FRANCIE Dextrose (D5w) 1,000 mls @ 100 mls/hr IVCONT .Q10H [facility] Last Admin: 10/25/21 09:51 Dose: Not Given Documented by: FRANCIE Non-Admin Reason: Duplicate Order Comments: per MD patricia give d5+20KCL @ 100ml/hr instead of this order Potassium Chloride/Dextrose () 20 meq in 1,000 mls @ 100 mls/hr IVCONT .Q10H [facility] Last Admin: 10/25/21 09:43 Dose: 100 mls/hr Documented by: FRANCIE Levothyroxine Sodium (Levothyroxine Sodium 75 Mcg Tablet) 75 mcg PO DAILY [facility] Last Admin: 10/25/21 09:44 Dose: 75 mcg Documented by: FRANCIE Magnesium Oxide (Magnesium Oxide 400 Mg Tablet) 400 mg PO BID [facility] Last Admin: 10/25/21 09:43 Dose: 400 mg Documented by: FRANCIE Methylprednisolone Sodium Succinate (Methylprednisolone Sod Succ 40 Mg/Ml Vial) 40 mg IVPUSH Q12H [facility] Last Admin: 10/25/21 09:52 Dose: 40 mg Documented by: FRANCIE Mirtazapine (Mirtazapine 15 Mg Tablet) 15 mg PO BEDTIME [facility] Last Admin: 10/24/21 20:27 Dose: 15 mg Documented by: CASTILMissy Omeprazole (Omeprazole 40 Mg Capsule.Dr) 40 mg PO BID [facility] Last Admin: 10/25/21 09:43 Dose: 40 mg Documented by: FRANCIE Ondansetron HCl (Ondansetron Hcl 4 Mg/2 Ml Vial) 4 mg IVPUSH Q8H PRN PRN Reason: Nausea and Vomiting Pharmacy Consult (Consult Rx Vancomycin Dosing) 1 each MISCELLANE DAILY PRN PRN Reason: Consult order Sodium Chloride (0.9 % Sodium Chloride Flush 3 Ml Syringe) 3 ml IVFLUSH QSHIFT [facility] Last Admin: 10/25/21 09:43 Dose: 3 ml Documented by: FRANCIE Warfarin Sodium (Warfarin Sodium 4 Mg Tablet) 4 mg PO DAILY@1800 [facility] Labs CBC & Chem 7: 10/25/21 04:50 10/25/21 04:50 Labs: Laboratory Results - last 24 hr 10/24/21 10/25/21 10/25/21 15:13 04:50 04:50 MCV 90.5 MCH 28.6 MCHC 31.6 RDW 16.5 H Plt Count 174 MPV 11.2 Absolute Nucleated RBC 0.000 Nucleated RBC % (auto) 0.0 PT 17.2 H INR 1.5 H Anion Gap 10 L Estim Creat Clear Calc 46.4 Estimated GFR > 60 Random Glucose 129 H Calcium 8.0 L 10/25/21 04:50 MCV MCH MCHC RDW Plt Count MPV Absolute Nucleated RBC Nucleated RBC % (auto) PT INR Anion Gap 9 L Estim Creat Clear Calc 42.4 Estimated GFR > 60 Random Glucose 127 H Calcium 8.3 L Assessment and Plan (1) Viral syndrome: Status: Acute (2) Acute exacerbation of chronic obstructive pulmonary disease: Status: Acute (3) Seizure: Status: Acute Plan 86M presented With sob sepsis , resolved acute on chronic hypoxic respiratory failure, improved 2\2 acute copd decopmensation due to human metapneumovirus mild improvement Repeat CXR showing worsened left lower lobe infiltrate continue steroids, bronchodilators, wean o2 as tolerated (baseline 2L) pulmonary input appreciated, likely viral syndrome PT recommended SNF placement aspiration pnuemonia finished 1 week treatment with IV antibiotics Pulmonology recommended to deescalate to doxycycline Hypernatremia Secondary to decreased oral intake, dehydration Sodium of 151 this morning To give replacement with D5W Repeat BMP Hypokalemia potassium improved to 3.4 this morning To give more supplement and monitor BMP seizure had 1 episode of seizure, no recurrence during hospital stay eeg negative Neurology input appreciated,no AED paroxysmal afib amio, coumadin, monitor inr hld statin gerd ppi hypothyroid synthroid reason for continued hospitalization: still hypoxic, symptomatic With increased dyspnea and hoarseness of voice to continue treatment with antibiotics and nebulizers to prevent possible decompensation into hypoxic respiratory failure and severe sepsis. Quality Stroke Does the patient have a stroke diagnosis?: No VTE Prior VTE?: No VTE Risk Level:: Medical - moderate - high VTE Device Contraindication: Treatment Not Indicated VTE Drug Contraindication: N/A - Med Ordered
[2021-10-25] MEDS: bisacodyL 10 MG SUPP.RECT PR (14:05)
[2021-10-25 16:47] LABS: Anion Gap 13 (12-20); Blood Urea Nitrogen 57 mg/dL (9-16); Calcium 8.3 mg/dL (8.4-10.2); Carbon Dioxide 33 mmol/L (22-29); Chloride 109 mmol/L (96-108); Creatinine Clr Calc Pharmacy 38.4; Estimated Glomerular Filt Rate 54; Glucose Random 173 mg/dL (60-115); Potassium 3.8 mmol/L (3.3-5.1); Sodium 151 mmol/L (135-145)
[2021-10-25] MEDS: Warfarin Sodium 4 MG TABLET PO (18:09)
[2021-10-25] MEDS: Atorvastatin Calcium 20 MG TABLET PO (21:21)
[2021-10-25] MEDS: Mirtazapine 15 MG TABLET PO (21:21)
[2021-10-26] VITALS (10 sets, daily range): BP systolic 119–141; BP diastolic 57–75; PULSE 70–75; RESP 16–24; TEMP 36–36.7; O2SAT 91–99
[2021-10-26] MEDS: Doxycycline Hyclate 100 MG in 0.9 % Sodium Chloride 250 ML 166.67 MG IV ×2 (06:21→18:25)
[2021-10-26 07:22] LABS: INTERNATIONAL NORM RATIO 2.7 (0.9-1.1); Prothrombin Time 30.9 SEC (9.9-13.0)
[2021-10-26 07:29] LABS: Anion Gap 12 (12-20); Blood Urea Nitrogen 53 mg/dL (9-16); Calcium 8.4 mg/dL (8.4-10.2); Carbon Dioxide 33 mmol/L (22-29); Chloride 108 mmol/L (96-108); Creatinine Clr Calc Pharmacy 43.5; Estimated Glomerular Filt Rate > 60; Glucose Random 177 mg/dL (60-115); Potassium 4.5 mmol/L (3.3-5.1); Sodium 148 mmol/L (135-145)
[2021-10-26] MEDS: Fluticasone/Vilanterol 200/25 BLST.W.DEV 1 PUFF INHALE (07:43)
[2021-10-26] MEDS: Albuterol/Iprat 2.5/0.5MG 3 ML AMPUL.NEB INHALE ×4 (07:43→19:53)
[2021-10-26] MEDS: Acetylcysteine 10 % 400 MG/4 ML VIAL INHALE ×2 (07:44→19:53)
[2021-10-26] MEDS: KCl 20 mEq in 5 % Dextrose 20 MEQ/1,000 ML IV.SOLN 100 MEQ IVCONT (09:00)
[2021-10-26] MEDS: bisacodyL 10 MG SUPP.RECT PR (09:01)
[2021-10-26] MEDS: methylPREDNISolone Sod Succ 40 MG/ML VIAL IVPUSH ×2 (09:15→21:27)
[2021-10-26] MEDS: Omeprazole 40 MG CAPSULE.DR PO (09:15)
[2021-10-26] MEDS: Magnesium Oxide 400 MG TABLET PO ×2 (09:15→21:28)
[2021-10-26] MEDS: Amiodarone HCL 200 MG TABLET 100 MG PO (09:15)
[2021-10-26] MEDS: allopurinoL 100 MG TABLET 50 MG PO (09:15)
[2021-10-26] MEDS: guaiFENesin DM 600/30 1 TAB TAB.ER.12H PO ×2 (09:15→21:28)
[2021-10-26] MEDS: Levothyroxine Sodium 75 MCG TABLET PO (09:15)
--- NOTE | 2021-10-26 11:28 | P.PNIM_ITS ---
Subjective Subjective Date of Service: 10/26/21 Interval History: looks more comfortable, reported mild improvement Mild improvement of the hoarseness Breathing has improved a little but still mildly tachypneic and dyspneic with minimal exertion Denies any fever, chills or chest pain No reported other overnight events. Systemic review: No fever, chills but reported increase weakness No chest pain, palpitation still having dyspnea, coughing and feeling of wheezes No abdominal pain, nausea or vomiting No urinary symptoms No any rash or wounds Physical Exam Vital Signs: Vital Signs: Last Vital Signs Temp 97.4 F 10/26/21 08:00 Pulse 70 10/26/21 11:13 Resp 24 H 10/26/21 11:13 BP 135/62 10/26/21 08:00 Pulse Ox 98 10/26/21 08:00 Oxygen Flow Rate 4 10/15/21 13:12 BMI result Body Mass Index 21.4 Const: Other: Constitutional : Alert, interactive but in mild respiratory distress Neck : Normal inspection, Supple, increased soreness of voice Cardiovascular : RRR, no JVP, trace lower extremity edema Respiratory : still significantly decreased bilateral air entry, no crackles, bilateral wheezes , on oxygen supplement Gastrointestinal: soft, lax, Normal bowel sounds, Non tender Skin : Warm, Dry Neurological : Alert & oriented x3, No focal deficit , CN 2-12 within normal Objective Data Active Medications Acetaminophen (Acetaminophen 325 Mg Tablet) 650 mg PO Q6H PRN PRN Reason: Pain, Mild (Pain Scale 1-3) Acetylcysteine (Acetylcysteine 10 % 400 Mg/4 Ml Vial) 400 mg INHALE RBID [facility] Last Admin: 10/26/21 07:44 Dose: 400 mg Documented by: BEE Albuterol/Ipratropium (Albuterol/Iprat 2.5/0.5mg 3 Ml Ampul.Neb) 3 ml INHALE RQ4H WHILE AWAKE [facility] Last Admin: 10/26/21 11:11 Dose: 3 ml Documented by: BEE Allopurinol (Allopurinol 100 Mg Tablet) 50 mg PO DAILY [facility] Last Admin: 10/26/21 09:15 Dose: 50 mg Documented by: MERI Amiodarone HCl (Amiodarone Hcl 200 Mg Tablet) 100 mg PO DAILY [facility] Last Admin: 10/26/21 09:15 Dose: 100 mg Documented by: MERI Atorvastatin Calcium (Atorvastatin Calcium 20 Mg Tablet) 20 mg PO BEDTIME [facility] Last Admin: 10/25/21 21:21 Dose: 20 mg Documented by: TIFFANIE Bisacodyl (Bisacodyl 10 Mg Supp.Rect) 10 mg [place] DAILY [facility] Last Admin: 10/26/21 09:01 Dose: 10 mg Documented by: MERI Docusate Sodium (Docusate Sodium 100 Mg Capsule) 100 mg PO BID PRN PRN Reason: Constipation Fluticasone/Vilanterol (Fluticasone/Vilanterol 200/25 Blst.W.Dev) 1 puff INHALE RDAILY [facility] Last Admin: 10/26/21 07:43 Dose: 1 puff Documented by: BEE Furosemide (Furosemide 40 Mg Tablet) 40 mg PO BID [facility]; Protocol Last Admin: 10/24/21 21:50 Dose: Not Given Documented by: MANISHA Non-Admin Reason: sys BP 90s, held as per Casie Ritter Guaifenesin/Dextromethorphan (Guaifenesin Dm 600/30 1 Tab Tab.Er.12h) 1 tab PO Q12H [facility] Last Admin: 10/26/21 09:15 Dose: 1 tab Documented by: COTEMA Doxycycline Hyclate 100 mg/ (Sodium Chloride) 250 mls @ 166.67 mls/hr IV Q12H [facility] Last Infusion: 10/26/21 08:49 Dose: 0 mls/hr Documented by: COTEMA Potassium Chloride/Dextrose () 20 meq in 1,000 mls @ 125 mls/hr IVCONT .Q8H [facility] Last Infusion: 10/26/21 10:16 Dose: 125 mls/hr Documented by: COTEMA Levothyroxine Sodium (Levothyroxine Sodium 75 Mcg Tablet) 75 mcg PO DAILY [facility] Last Admin: 10/26/21 09:15 Dose: 75 mcg Documented by: COTEMA Magnesium Oxide (Magnesium Oxide 400 Mg Tablet) 400 mg PO BID [facility] Last Admin: 10/26/21 09:15 Dose: 400 mg Documented by: COTEMA Methylprednisolone Sodium Succinate (Methylprednisolone Sod Succ 40 Mg/Ml Vial) 40 mg IVPUSH Q12H [facility] Last Admin: 10/26/21 09:15 Dose: 40 mg Documented by: MERI Mirtazapine (Mirtazapine 15 Mg Tablet) 15 mg PO BEDTIME [facility] Last Admin: 10/25/21 21:21 Dose: 15 mg Documented by: TIFFANIE Omeprazole (Omeprazole 40 Mg Capsule.) 40 mg PO BID [facility] Last Admin: 10/26/21 09:15 Dose: 40 mg Documented by: MERI Ondansetron HCl (Ondansetron Hcl 4 Mg/2 Ml Vial) 4 mg IVPUSH Q8H PRN PRN Reason: Nausea and Vomiting Pharmacy Consult (Consult Rx Vancomycin Dosing) 1 each MISCELLANE DAILY PRN PRN Reason: Consult order Sodium Chloride (0.9 % Sodium Chloride Flush 3 Ml Syringe) 3 ml IVFLUSH QSHIFT [facility] Last Admin: 10/26/21 07:31 Dose: Not Given Documented by: MERI Non-Admin Reason: IV Running Warfarin Sodium (Warfarin Sodium 2 Mg Tablet) 2 mg PO DAILY@1800 [facility] Labs CBC & Chem 7: 10/25/21 04:50 10/26/21 06:39 Labs: Laboratory Results - last 24 hr 10/25/21 10/26/21 10/26/21 16:26 06:39 06:39 PT 30.9 H INR 2.7 H Anion Gap 13 12 Estim Creat Clear Calc 38.4 43.5 Estimated GFR 54 > 60 Random Glucose 173 H D 177 H Calcium 8.3 L 8.4 Random Vancomycin 10/26/21 06:39 PT INR Anion Gap Estim Creat Clear Calc Estimated GFR Random Glucose Calcium Random Vancomycin 8.0 L Assessment and Plan (1) Viral syndrome: Status: Acute (2) Acute exacerbation of chronic obstructive pulmonary disease: Status: Acute Plan 86M presented with shortness of breath and wheezing. Hypernatremia Secondary to decreased oral intake, dehydration Sodium of 148 this morning continue replacement with D5W Repeat BMP sepsis , resolved acute on chronic hypoxic respiratory failure, improved 2\2 acute copd decopmensation due to human metapneumovirus Improving slowly Repeat CXR showing worsened left lower lobe infiltrate continue steroids, bronchodilators, wean o2 as tolerated (baseline 2L) pulmonary input appreciated, likely viral syndrome PT recommended SNF placement aspiration pnuemonia finished 1 week treatment with IV antibiotics Pulmonology recommended to c to doxycycline Hypokalemia improved to 4.5 this morning monitor BMP seizure had 1 episode of seizure, no recurrence during hospital stay eeg negative Neurology input appreciated,no AED paroxysmal afib amio, coumadin, monitor inr hld statin gerd ppi hypothyroid synthroid reason for continued hospitalization: still hypoxic, symptomatic With increased dyspnea and hoarseness of voice to continue treatment with antibiotics and nebulizers to prevent possible decompensation into hypoxic respiratory failure and severe sepsis. Quality Stroke Does the patient have a stroke diagnosis?: No VTE Prior VTE?: No VTE Risk Level:: Medical - moderate - high VTE Device Contraindication: Treatment Not Indicated VTE Drug Contraindication: N/A - Med Ordered
[2021-10-26 13:51] LABS: Anion Gap 11 (12-20); Blood Urea Nitrogen 53 mg/dL (9-16); Calcium 8.4 mg/dL (8.4-10.2); Carbon Dioxide 33 mmol/L (22-29); Chloride 109 mmol/L (96-108); Creatinine Clr Calc Pharmacy 45.6; Estimated Glomerular Filt Rate > 60; Glucose Random 124 mg/dL (60-115); Potassium 4.4 mmol/L (3.3-5.1); Sodium 149 mmol/L (135-145)
[2021-10-26] MEDS: Warfarin Sodium 2 MG TABLET PO (18:25)
[2021-10-26] MEDS: KCl 20 mEq in 5 % Dextrose 20 MEQ/1,000 ML IV.SOLN 125 MEQ IVCONT (18:26)
[2021-10-26] MEDS: Mirtazapine 15 MG TABLET PO (21:28)
[2021-10-26] MEDS: Atorvastatin Calcium 20 MG TABLET PO (21:28)
[2021-10-26] MEDS: 0.9 % Sodium Chloride Flush 3 ML SYRINGE IVFLUSH (21:28)
[2021-10-27] VITALS (9 sets, daily range): BP systolic 107–156; BP diastolic 50–75; PULSE 66–96; RESP 16–20; TEMP 36.2–36.6; O2SAT 90–97
[2021-10-27] MEDS: Doxycycline Hyclate 100 MG in 0.9 % Sodium Chloride 250 ML 166.67 MG IV (06:03)
[2021-10-27 07:26] LABS: Blood Urea Nitrogen 50 mg/dL (9-16); Calcium 8.7 mg/dL (8.4-10.2); Creatinine Clr Calc Pharmacy 48.3; Estimated Glomerular Filt Rate > 60; Glucose Random 115 mg/dL (60-115)
[2021-10-27] MEDS: Albuterol/Iprat 2.5/0.5MG 3 ML AMPUL.NEB INHALE ×2 (07:36→19:21)
[2021-10-27] MEDS: Acetylcysteine 10 % 400 MG/4 ML VIAL INHALE ×2 (07:36→19:21)
[2021-10-27] MEDS: Fluticasone/Vilanterol 200/25 BLST.W.DEV 1 PUFF INHALE (07:38)
[2021-10-27 07:42] LABS: Anion Gap 12 (12-20); Carbon Dioxide 31 mmol/L (22-29); Chloride 106 mmol/L (96-108); Potassium 5.8 mmol/L (3.3-5.1); Sodium 143 mmol/L (135-145)
[2021-10-27] MEDS: Sodium Polystyrene Sulfon/Sorb 15 GM/60 ML ORAL.SUSP 30 GM PO (09:03)
[2021-10-27] MEDS: Levothyroxine Sodium 75 MCG TABLET PO (09:05)
[2021-10-27] MEDS: Amiodarone HCL 200 MG TABLET 100 MG PO (09:05)
[2021-10-27] MEDS: guaiFENesin DM 600/30 1 TAB TAB.ER.12H PO ×2 (09:05→20:58)
[2021-10-27] MEDS: Throat Lozenge, Medicated LOZENGE 1 LOZENGE MUCOUS MEM (09:05)
[2021-10-27] MEDS: Magnesium Oxide 400 MG TABLET PO ×2 (09:05→20:58)
[2021-10-27] MEDS: allopurinoL 100 MG TABLET 50 MG PO (09:05)
[2021-10-27] MEDS: methylPREDNISolone Sod Succ 40 MG/ML VIAL IVPUSH (09:05)
[2021-10-27] MEDS: Omeprazole 40 MG CAPSULE.DR PO ×2 (09:05→20:58)
--- NOTE | 2021-10-27 11:47 | HO.PM.IMPN ---
Subjective Subjective Date of Service: 10/27/21 Interval History: reported feeling more comfortable, with overall improvement still having significant hoarseness Denies any fever, chills or chest pain No reported other overnight events. Systemic review: No fever, chills but reported increase weakness No chest pain, palpitation still having dyspnea, coughing and feeling of wheezes No abdominal pain, nausea or vomiting No urinary symptoms No any rash or wounds Physical Exam Vital Signs: Vital Signs: Last Vital Signs Temp 97.4 F 10/27/21 08:00 Pulse 74 10/27/21 08:00 Resp 18 10/27/21 08:00 BP 112/50 L 10/27/21 08:00 Pulse Ox 93 10/27/21 08:00 Oxygen Flow Rate 4 10/15/21 13:12 BMI result Body Mass Index 21.4 Const: Other: Constitutional : Alert, interactive, not in distress Neck : Normal inspection, Supple, increased soreness of voice Cardiovascular : RRR, no JVP, trace lower extremity edema Respiratory : improved bilateral air entry, no crackles, bilateral scattered wheezes , on oxygen supplement Gastrointestinal: soft, lax, Normal bowel sounds, Non tender Skin : Warm, Dry Neurological : Alert & oriented x3, No focal deficit , CN 2-12 within normal Objective Data Active Medications Acetaminophen (Acetaminophen 325 Mg Tablet) 650 mg PO Q6H PRN PRN Reason: Pain, Mild (Pain Scale 1-3) Acetylcysteine (Acetylcysteine 10 % 400 Mg/4 Ml Vial) 400 mg INHALE RBID [facility] Last Admin: 10/27/21 07:36 Dose: 400 mg Documented by: BEE Albuterol/Ipratropium (Albuterol/Iprat 2.5/0.5mg 3 Ml Ampul.Neb) 3 ml INHALE RQ4H WHILE AWAKE [facility] Last Admin: 10/27/21 11:25 Dose: Not Given Documented by: BEE Non-Admin Reason: Patient Refused Allopurinol (Allopurinol 100 Mg Tablet) 50 mg PO DAILY [facility] Last Admin: 10/27/21 09:05 Dose: 50 mg Documented by: MERI Amiodarone HCl (Amiodarone Hcl 200 Mg Tablet) 100 mg PO DAILY [facility] Last Admin: 10/27/21 09:05 Dose: 100 mg Documented by: MERI Atorvastatin Calcium (Atorvastatin Calcium 20 Mg Tablet) 20 mg PO BEDTIME [facility] Last Admin: 10/26/21 21:28 Dose: 20 mg Documented by: SEA Benzocaine (Throat Lozenge, Medicated Lozenge) 1 lozenge MUCOUS MEM Q4H PRN PRN Reason: Sore Throat Last Admin: 10/27/21 09:05 Dose: 1 lozenge Documented by: COTPATRICIA Bisacodyl (Bisacodyl 10 Mg Supp.Rect) 10 mg [place] DAILY [facility] Last Admin: 10/27/21 08:40 Dose: Not Given Documented by: COTEMA Non-Admin Reason: pt,continenet,of,mod,bm Docusate Sodium (Docusate Sodium 100 Mg Capsule) 100 mg PO BID PRN PRN Reason: Constipation Fluticasone/Vilanterol (Fluticasone/Vilanterol 200/25 Blst.W.Dev) 1 puff INHALE RDAILY [facility] Last Admin: 10/27/21 07:38 Dose: 1 puff Documented by: BEE Furosemide (Furosemide 40 Mg Tablet) 40 mg PO BID [facility]; Protocol Last Admin: 10/24/21 21:50 Dose: Not Given Documented by: CASTILM Non-Admin Reason: sys BP 90s, held as per Casie Ritter Guaifenesin/Dextromethorphan (Guaifenesin Dm 600/30 1 Tab Tab.Er.12h) 1 tab PO Q12H [facility] Last Admin: 10/27/21 09:05 Dose: 1 tab Documented by: COTPATRICIA Doxycycline Hyclate 100 mg/ (Sodium Chloride) 250 mls @ 166.67 mls/hr IV Q12H [facility] Last Infusion: 10/27/21 07:36 Dose: 0 mls/hr Documented by: COTPATRICIA Levothyroxine Sodium (Levothyroxine Sodium 75 Mcg Tablet) 75 mcg PO DAILY [facility] Last Admin: 10/27/21 09:05 Dose: 75 mcg Documented by: COTEMA Magnesium Oxide (Magnesium Oxide 400 Mg Tablet) 400 mg PO BID [facility] Last Admin: 10/27/21 09:05 Dose: 400 mg Documented by: COTEMA Methylprednisolone Sodium Succinate (Methylprednisolone Sod Succ 40 Mg/Ml Vial) 40 mg IVPUSH Q12H [facility] Last Admin: 10/27/21 09:05 Dose: 40 mg Documented by: MERI Mirtazapine (Mirtazapine 15 Mg Tablet) 15 mg PO BEDTIME [facility] Last Admin: 10/26/21 21:28 Dose: 15 mg Documented by: SEA Omeprazole (Omeprazole 40 Mg Capsule.) 40 mg PO BID [facility] Last Admin: 10/27/21 09:05 Dose: 40 mg Documented by: MERI Ondansetron HCl (Ondansetron Hcl 4 Mg/2 Ml Vial) 4 mg IVPUSH Q8H PRN PRN Reason: Nausea and Vomiting Pharmacy Consult (Consult Rx Vancomycin Dosing) 1 each MISCELLANE DAILY PRN PRN Reason: Consult order Sodium Chloride (0.9 % Sodium Chloride Flush 3 Ml Syringe) 3 ml IVFLUSH QSHIFT [facility] Last Admin: 10/27/21 07:03 Dose: Not Given Documented by: MERI Non-Admin Reason: IV Running Warfarin Sodium (Warfarin Sodium 2 Mg Tablet) 2 mg PO DAILY@1800 [facility] Last Admin: 10/26/21 18:25 Dose: 2 mg Documented by: MERI Labs CBC & Chem 7: 10/25/21 04:50 10/27/21 06:19 Labs: Laboratory Results - last 24 hr 10/26/21 10/27/21 13:05 06:19 Anion Gap 11 L 12 Estim Creat Clear Calc 45.6 48.3 Estimated GFR > 60 > 60 Random Glucose 124 H 115 Calcium 8.4 8.7 Assessment and Plan (1) Hypernatremia: Status: Acute (2) Hyperkalemia: Status: Acute (3) Viral syndrome: Status: Acute (4) Acute exacerbation of chronic obstructive pulmonary disease: Status: Acute Plan 86M presented with shortness of breath and wheezing. Hypernatremia Secondary to decreased oral intake, dehydration Sodium of 145 this morning continue replacement with D5W Repeat BMP hyperkalemia Potassium of 5.8 this morning Give Kayexalate Repeat BMP sepsis , resolved acute on chronic hypoxic respiratory failure, improved 2\2 acute copd decopmensation due to human metapneumovirus Improving slowly Repeat CXR showing worsened left lower lobe infiltrate continue steroids, bronchodilators, wean o2 as tolerated (baseline 2L) pulmonary input appreciated, likely viral syndrome PT recommended SNF placement aspiration pnuemonia finished 1 week treatment with IV antibiotics Pulmonology recommended to c to doxycycline swallowing problem Evaluated by speech team Aspiration precaution Continue with modified diet NDD 3 with nectar thick fluids seizure had 1 episode of seizure, no recurrence during hospital stay eeg negative Neurology input appreciated,no AED paroxysmal afib amio, coumadin, monitor inr hld statin gerd ppi hypothyroid synthroid reason for continued hospitalization: still hypoxic, symptomatic With dyspnea and hoarseness of voice to continue treatment with Steroids and nebulizers along with electrolyte imbalance that need correction to prevent possible decompensation into hypoxic respiratory failure Quality Stroke Does the patient have a stroke diagnosis?: No VTE Prior VTE?: No VTE Risk Level:: Medical - moderate - high VTE Device Contraindication: Treatment Not Indicated VTE Drug Contraindication: N/A - Med Ordered
[2021-10-27 12:14] LABS: Anion Gap 15 (12-20); Blood Urea Nitrogen 51 mg/dL (9-16); Calcium 8.9 mg/dL (8.4-10.2); Carbon Dioxide 26 mmol/L (22-29); Chloride 109 mmol/L (96-108); Creatinine Clr Calc Pharmacy 45.6; Estimated Glomerular Filt Rate > 60; Glucose Random 126 mg/dL (60-115); Potassium 5.1 mmol/L (3.3-5.1); Sodium 145 mmol/L (135-145)
[2021-10-27 12:18] LABS: INTERNATIONAL NORM RATIO 3.8 (0.9-1.1); Prothrombin Time 43.9 SEC (9.9-13.0)
[2021-10-27] MEDS: Dextrose 5 % 1,000 ML 100 ML IVCONT (14:18)
--- NOTE | 2021-10-27 16:57 | PC.NURSE ---
Patient IV access infiltrated. This RN attempted and was unsuccessful, a second RN attempted and was unsuccessful, and Clinical Coordinator attempted and was unsuccessful. Dr. Perez made aware. Telephone order to hold on IV fluids, encourage PO intake of free water, and change IV doxy to PO. PO doxy ordered and patient given two cups of 240mls of nectar thickened water. Will continue to encourage PO water intake.
[2021-10-27] MEDS: Atorvastatin Calcium 20 MG TABLET PO (20:58)
[2021-10-27] MEDS: Mirtazapine 15 MG TABLET PO (20:58)
[2021-10-28] VITALS (13 sets, daily range): BP systolic 106–157; BP diastolic 61–75; PULSE 63–84; RESP 18–24; TEMP 36.1–36.8; O2SAT 89–95; BMI 21.4
[2021-10-28] MEDS: Albuterol/Iprat 2.5/0.5MG 3 ML AMPUL.NEB INHALE ×4 (01:33→17:42)
--- NOTE | 2021-10-28 03:44 | PC.NURSE ---
Pt o2 sat-81-86% on 5L.Called resp to give ud tx.Very congested encouraged deep breathing and coughing.02sat went up to 90% but dropped down again 86-89%.Pt is mouth breathing asked resp to changeover operator to face mask.Face mask on sat 92% on 6L.
[2021-10-28 06:27] LABS: INTERNATIONAL NORM RATIO 4.8 (0.9-1.1); Prothrombin Time 55.9 SEC (9.9-13.0)
[2021-10-28 06:36] LABS: Anion Gap 13 (12-20); Blood Urea Nitrogen 54 mg/dL (9-16); Calcium 8.3 mg/dL (8.4-10.2); Carbon Dioxide 30 mmol/L (22-29); Chloride 110 mmol/L (96-108); Creatinine Clr Calc Pharmacy 45.1; Estimated Glomerular Filt Rate > 60; Glucose Random 107 mg/dL (60-115); Potassium 4.2 mmol/L (3.3-5.1); Sodium 149 mmol/L (135-145)
[2021-10-28] MEDS: Magnesium Oxide 400 MG TABLET PO ×2 (08:16→21:26)
[2021-10-28] MEDS: Omeprazole 40 MG CAPSULE.DR PO ×2 (08:16→21:27)
[2021-10-28] MEDS: methylPREDNISolone Sod Succ 40 MG/ML VIAL IVPUSH ×2 (08:16→21:26)
[2021-10-28] MEDS: Dextrose 5 % 1,000 ML 125 ML IVCONT ×2 (08:16→15:31)
[2021-10-28] MEDS: Amiodarone HCL 200 MG TABLET 100 MG PO (08:16)
[2021-10-28] MEDS: allopurinoL 100 MG TABLET 50 MG PO (08:16)
[2021-10-28] MEDS: Levothyroxine Sodium 75 MCG TABLET PO (08:17)
[2021-10-28] MEDS: guaiFENesin DM 600/30 1 TAB TAB.ER.12H PO ×2 (08:17→21:26)
[2021-10-28] MEDS: Fluticasone/Vilanterol 200/25 BLST.W.DEV 1 PUFF INHALE (08:25)
[2021-10-28] MEDS: Acetylcysteine 10 % 400 MG/4 ML VIAL INHALE (08:25)
--- NOTE | 2021-10-28 08:33 | MHC.CM.PN ---
PT IS MEDICALLY CLEARED ONCE A STR BED IS SECURED. REFERRALS MADE, [facility], INDICATED THEY MAY HAVE A BED THIS MORINING.
--- NOTE | 2021-10-28 11:44 | P.PNIM_ITS ---
Subjective Subjective Date of Service: 10/28/21 Interval History: seems more lethargic and tired, increased oxygen supplement overnight still having significant hoarseness Denies any fever, chills or chest pain but looks weak overall Decreased p.o. intake in general No reported other overnight events. Systemic review: No fever, chills but reported increase weakness overall No chest pain, palpitation still having dyspnea, coughing and feeling of wheezes No abdominal pain, nausea or vomiting No urinary symptoms No any rash or wounds Physical Exam Vital Signs: Vital Signs: Last Vital Signs Temp 97.6 F 10/28/21 08:00 Pulse 77 10/28/21 11:26 Resp 18 10/28/21 11:26 BP 115/65 10/28/21 08:00 Pulse Ox 93 10/28/21 08:00 Oxygen Flow Rate 4 10/15/21 13:12 BMI result Body Mass Index 21.4 Const: Other: Constitutional : Alert, interactive, in mild respiratory distress Neck : Normal inspection, Supple, increased soreness of voice Cardiovascular : RRR, no JVP, trace lower extremity edema Respiratory : decreased bilateral air entry, no crackles, bilateral scattered wheezes , on oxygen supplement Gastrointestinal: soft, lax, Normal bowel sounds, Non tender Skin : Warm, Dry Neurological : Alert & oriented x3, No focal deficit , CN 2-12 within normal Objective Data Active Medications Acetaminophen (Acetaminophen 325 Mg Tablet) 650 mg PO Q6H PRN PRN Reason: Pain, Mild (Pain Scale 1-3) Acetylcysteine (Acetylcysteine 10 % 400 Mg/4 Ml Vial) 400 mg INHALE RBID [facility] Last Admin: 10/28/21 08:25 Dose: 400 mg Documented by: RENA Albuterol/Ipratropium (Albuterol/Iprat 2.5/0.5mg 3 Ml Ampul.Neb) 3 ml INHALE RQ4H WHILE AWAKE [facility] Last Admin: 10/28/21 11:25 Dose: 3 ml Documented by: RENA Allopurinol (Allopurinol 100 Mg Tablet) 50 mg PO DAILY [facility] Last Admin: 10/28/21 08:16 Dose: 50 mg Documented by: MERI Amiodarone HCl (Amiodarone Hcl 200 Mg Tablet) 100 mg PO DAILY [facility] Last Admin: 10/28/21 08:16 Dose: 100 mg Documented by: MERI Atorvastatin Calcium (Atorvastatin Calcium 20 Mg Tablet) 20 mg PO BEDTIME [facility] Last Admin: 10/27/21 20:58 Dose: 20 mg Documented by: ERIN Benzocaine (Throat Lozenge, Medicated Lozenge) 1 lozenge MUCOUS MEM Q4H PRN PRN Reason: Sore Throat Last Admin: 10/27/21 09:05 Dose: 1 lozenge Documented by: MERI Bisacodyl (Bisacodyl 10 Mg Supp.Rect) 10 mg DC DAILY [facility] Last Admin: 10/28/21 07:32 Dose: Not Given Documented by: MERI Non-Admin Reason: pt having diarrhea Docusate Sodium (Docusate Sodium 100 Mg Capsule) 100 mg PO BID PRN PRN Reason: Constipation Doxycycline Hyclate (Doxycycline Hyclate 100 Mg Tablet) 100 mg PO Q12H [facility] Last Admin: 10/28/21 06:18 Dose: 100 mg Documented by: ERIN Fluticasone/Vilanterol (Fluticasone/Vilanterol 200/25 Blst.W.Dev) 1 puff INHALE RDAILY [facility] Last Admin: 10/28/21 08:25 Dose: 1 puff Documented by: RENA Furosemide (Furosemide 40 Mg Tablet) 40 mg PO BID [facility]; Protocol Last Admin: 10/24/21 21:50 Dose: Not Given Documented by: MANISHA Non-Admin Reason: sys BP 90s, held as per Casie Ritter Guaifenesin/Dextromethorphan (Guaifenesin Dm 600/30 1 Tab Tab.Er.12h) 1 tab PO Q12H [facility] Last Admin: 10/28/21 08:17 Dose: 1 tab Documented by: MERI Dextrose (D5w) 1,000 mls @ 125 mls/hr IVCONT .Q8H [facility] Stop: 10/28/21 22:00 Last Admin: 10/28/21 08:16 Dose: 125 mls/hr Documented by: MERI Levothyroxine Sodium (Levothyroxine Sodium 75 Mcg Tablet) 75 mcg PO DAILY [facility] Last Admin: 10/28/21 08:17 Dose: 75 mcg Documented by: MERI Magnesium Oxide (Magnesium Oxide 400 Mg Tablet) 400 mg PO BID [facility] Last Admin: 10/28/21 08:16 Dose: 400 mg Documented by: COTEMA Methylprednisolone Sodium Succinate (Methylprednisolone Sod Succ 40 Mg/Ml Vial) 40 mg IVPUSH Q12H [facility] Last Admin: 10/28/21 08:16 Dose: 40 mg Documented by: COTEMA Mirtazapine (Mirtazapine 15 Mg Tablet) 15 mg PO BEDTIME [facility] Last Admin: 10/27/21 20:58 Dose: 15 mg Documented by: [email or web address] Omeprazole (Omeprazole 40 Mg Capsule.Dr) 40 mg PO BID [facility] Last Admin: 10/28/21 08:16 Dose: 40 mg Documented by: COTEMA Ondansetron HCl (Ondansetron Hcl 4 Mg/2 Ml Vial) 4 mg IVPUSH Q8H PRN PRN Reason: Nausea and Vomiting Pharmacy Consult (Consult Rx Vancomycin Dosing) 1 each MISCELLANE DAILY PRN PRN Reason: Consult order Sodium Chloride (0.9 % Sodium Chloride Flush 3 Ml Syringe) 3 ml IVFLUSH QSHIFT [facility] Last Admin: 10/28/21 07:32 Dose: Not Given Documented by: MERI Non-Admin Reason: No Access Warfarin Sodium (Warfarin Sodium 2 Mg Tablet) 2 mg PO DAILY@1800 [facility] Last Admin: 10/26/21 18:25 Dose: 2 mg Documented by: MERI Labs CBC & Chem 7: 10/25/21 04:50 10/28/21 06:00 Labs: Laboratory Results - last 24 hr 10/27/21 10/27/21 10/28/21 11:42 11:42 06:00 PT 43.9 H 55.9 H INR 3.8 H 4.8 H Anion Gap 15 Estim Creat Clear Calc 45.6 Estimated GFR > 60 Random Glucose 126 H Calcium 8.9 10/28/21 06:00 PT INR Anion Gap 13 Estim Creat Clear Calc 45.1 Estimated GFR > 60 Random Glucose 107 Calcium 8.3 L D Assessment and Plan (1) Acute metabolic encephalopathy: Status: Acute (2) Hypernatremia: Status: Acute (3) Acute exacerbation of chronic obstructive pulmonary disease: Status: Acute (4) Acute on chronic respiratory failure with hypoxemia: Status: Acute Plan 86M presented with shortness of breath and wheezing. metabolic encephalopathy 2/2 Hypernatremia Secondary to decreased oral intake, dehydration Sodium of 149 this morning Start replacement with D5W Repeat BMP hyperkalemia resolved Repeat BMP sepsis , resolved acute on chronic hypoxic respiratory failure 2\2 acute copd decopmensation due to human metapneumovirus Improving slowly Repeat CXR showing worsened left lower lobe infiltrate continue steroids, bronchodilators, wean o2 as tolerated (baseline 2L) PT recommended SNF placement pulmonary input appreciated, pending re-evaluation aspiration pnuemonia finished 1 week treatment with IV antibiotics Pulmonology recommended to doxycycline swallowing problem decreased oral intake Evaluated by speech team Aspiration precaution Continue with modified diet NDD3 with nectar thick fluids seizure had 1 episode of seizure, no recurrence during hospital stay eeg negative Neurology input appreciated,no AED paroxysmal afib amio, coumadin, monitor inr hld statin gerd ppi hypothyroid synthroid reason for continued hospitalization: still hypoxic, symptomatic With dyspnea and hoarseness of voice to continue treatment with Steroids and nebulizers along with electrolyte imbalance that need correction to prevent possible decompensation into hypoxic respiratory failure With plan for possible home hospice pending hospice team evaluation Quality Stroke Does the patient have a stroke diagnosis?: No VTE Prior VTE?: No VTE Risk Level:: Medical - moderate - high VTE Device Contraindication: Treatment Not Indicated VTE Drug Contraindication: N/A - Med Ordered
--- NOTE | 2021-10-28 11:53 | W.MHC.ACPN ---
Advanced Care Planning Note Advanced Care Planning Note Discussed with: family member(s) Time spent (in minutes): 20 Narrative: I had a chance to meet with the patient family including his HCP, son and daughter to discuss his ongoing medical problems and deterioration on both physical and mental aspect. I explained to them that the patient has been getting physically deconditioned with decreased oral intake and electrolyte imbalance as a result of a viral illness and COPD exacerbation requiring more oxygen supplement. Primarily the plan was to discharge him to a rehab facility but he continued to deteriorate physically and partially mentally recommending recurrent IV fluids to correct his electrolyte imbalance from dehydration. The family understand the concerns as we discussed changing his status and possible need for palliative or hospice care. Code status was changed to DNR DNI, MOLST form was signed. To discuss with hospice team about possible home hospice. Will continue to follow the patient for the next day or 2 with full treatment before deciding on the next best step. Problems Discussed (1) Acute metabolic encephalopathy: (2) Hypernatremia: (3) Acute exacerbation of chronic obstructive pulmonary disease: (4) Acute on chronic respiratory failure with hypoxemia:
--- NOTE | 2021-10-28 12:16 | MHC.CM.PN ---
FOLLOWING FAMILY DISCUSSION WITH PHYSICIAN, REFERRAL PLACED OT [facility]. MOLST UPLOADED INTO [employer] AND PLACED IN PAPER CHART FAMILY HAS COPIES CASE MANAGEMENT FOLLOWING. AWAITING PULMONOLGY CONSULT
--- NOTE | 2021-10-28 13:20 | MHC.SLORD ---
Speech Language Pathology Order Status: Per RN, patient is tolerating diet, but not eating much d/t weakness, not feeling well. Patient is on chopped/advanced diet (NDD3), nectar thick liquids. Recently downgraded d/t coughing with thin liquids. HANDKERCHIEF MAKER will continue to follow.
--- NOTE | 2021-10-28 14:10 | MHC.CLN ---
NUTRITION CONSULT FOR POOR PO AND SKIN. DIET=2 GRAM SODIUM, NDD3 WITH NECTAR THICK LIQUIDS. ADDING ENSURE TID TO IMPROVE NUTRITIONAL INTAKE AND PROMOTE WOUND HEALING. SUPPLEMENT PROVIDES 1050 KCAL, 60 G PROTEIN. STAGE II TO COCCYX IDENTIFIED 10/26. DECREASE IN INTAKE WITH WORSENING SOB SINCE 10/23. ENCOURAGE INTAKE OF MEALS AND SUPPLEMENT ABLE.
[2021-10-28 15:15] LABS: Anion Gap 11 (12-20); Blood Urea Nitrogen 51 mg/dL (9-16); Calcium 8.2 mg/dL (8.4-10.2); Carbon Dioxide 32 mmol/L (22-29); Chloride 108 mmol/L (96-108); Creatinine Clr Calc Pharmacy 43.9; Estimated Glomerular Filt Rate > 60; Glucose Random 209 mg/dL (60-115); Potassium 4.2 mmol/L (3.3-5.1); Sodium 147 mmol/L (135-145)
--- NOTE | 2021-10-28 15:37 | MHC.CM.PN ---
[facility] WILL MEET WITH AND SON TOMORROW. PLAN IS DC TO HOME BY THURSDAY UNDER [facility]
--- NOTE | 2021-10-28 15:42 | PM.PNPUL ---
Subjective Subjective Date of Service: 10/28/21 Interval history: 86-year-old gentleman with underlying advanced COPD admitted with acute on chronic hypoxic respiratory failure secondary to metapneumovirus, now with very slow recovery further complicated by protein malnutrition. Very slow incremental improvement. Objective Data Labs CBC & Chem 7: 10/25/21 04:50 10/28/21 14:54 Labs: Laboratory Results - last 24 hr 10/28/21 10/28/21 10/28/21 06:00 06:00 14:54 PT 55.9 H INR 4.8 H Sodium 149 H 147 H Potassium 4.2 4.2 Chloride 110 H 108 Carbon Dioxide 30 H 32 H Anion Gap 13 11 L BUN 54 H 51 H Creatinine 1.08 1.11 Estim Creat Clear Calc 45.1 43.9 Estimated GFR > 60 > 60 Random Glucose 107 209 H D Calcium 8.3 L D 8.2 L Microbiology Microbiology Results: Microbiology 10/15/21 15:11 Blood - Venous Blood Culture - Final No growth after 5 days. 10/15/21 13:59 Blood - Venous Blood Culture - Final No growth after 5 days. Review of Systems Cardiovascular: Denies chest pain and Reports dyspnea on exertion Respiratory: Denies cough, Denies excessive phlegm production and Reports dyspnea on exertion Physical Exam Vital Signs: Vital Signs: Last Vital Signs Temp 98.3 F 10/28/21 12:00 Pulse 77 10/28/21 12:00 Resp 20 10/28/21 12:00 BP 157/65 H 10/28/21 12:00 Pulse Ox 92 10/28/21 12:00 Oxygen Flow Rate 4 10/15/21 13:12 BMI result Body Mass Index 21.4 Const: General: no acute distress and awake Eyes: Sclerae: sclerae normal EOM: EOMs intact bilaterally Neck: Neck: Yes no lymphadenopathy, Yes trachea midline and Yes supple Resp: Effort & Inspection: normal respiratory effort and no respiratory distress Auscultation: crackles ( Diffuse bilateral) Cardio: Rate: regular rate Rhythm: regular rhythm Heart sounds: no gallops, no murmurs and no rubs GI: Palpation (GI): Soft to palpation and Other GI palpation findings present ( Nontender) Auscultation: normal bowel sounds Extrem: General: No clubbing, No cyanosis and Yes edema ( trace bilateral) Procedures Date of Service Date of Service: 10/28/21 Assessment and Plan Assessment and plan (1) Acute on chronic respiratory failure with hypoxemia: Status: Acute (2) Acute exacerbation of chronic obstructive pulmonary disease: Status: Acute (3) Viral syndrome: Status: Acute Plan Impression: 86-year-old gentleman with underlying advanced COPD admitted with COPD exacerbation secondary to metapneumovirus, now with very slow incremental improvements. Recommendations: Agree with continuation of systemic and nebulized bronchodilators. Consider discontinuation of doxycycline. Continue to titrate off supplemental oxygen as tolerated. Time Spent With Patient Time: Total time spent is greater than 50% in coordination of care (as documented) at patient's floor/unit and/or counseling patient: Progress Note: Quality Stroke Does the patient have a stroke diagnosis?: No
[2021-10-28] MEDS: Atorvastatin Calcium 20 MG TABLET PO (21:26)
[2021-10-28] MEDS: Mirtazapine 15 MG TABLET PO (21:26)
[2021-10-28] MEDS: 0.9 % Sodium Chloride Flush 3 ML SYRINGE IVFLUSH (23:40)
[2021-10-29] VITALS (11 sets, daily range): BP systolic 120–138; BP diastolic 51–73; PULSE 63–97; RESP 16–24; TEMP 36.1–37.4; O2SAT 88–99
[2021-10-29] MEDS: Albuterol/Iprat 2.5/0.5MG 3 ML AMPUL.NEB INHALE ×5 (01:06→19:24)
[2021-10-29 06:10] LABS: INTERNATIONAL NORM RATIO 4.2 (0.9-1.1); Prothrombin Time 49.8 SEC (9.9-13.0)
[2021-10-29 06:23] LABS: Anion Gap 11 (12-20); Blood Urea Nitrogen 54 mg/dL (9-16); Calcium 8.1 mg/dL (8.4-10.2); Carbon Dioxide 33 mmol/L (22-29); Chloride 106 mmol/L (96-108); Creatinine Clr Calc Pharmacy 45.6; Estimated Glomerular Filt Rate > 60; Glucose Random 146 mg/dL (60-115); Potassium 4.1 mmol/L (3.3-5.1); Sodium 146 mmol/L (135-145)
[2021-10-29] MEDS: Fluticasone/Vilanterol 200/25 BLST.W.DEV 1 PUFF INHALE (08:25)
[2021-10-29] MEDS: 0.9 % Sodium Chloride Flush 3 ML SYRINGE IVFLUSH ×3 (08:50→21:55)
[2021-10-29] MEDS: methylPREDNISolone Sod Succ 40 MG/ML VIAL IVPUSH ×2 (08:50→21:55)
[2021-10-29] MEDS: Omeprazole 40 MG CAPSULE.DR PO (08:50)
[2021-10-29] MEDS: Amiodarone HCL 200 MG TABLET 100 MG PO (08:50)
[2021-10-29] MEDS: Magnesium Oxide 400 MG TABLET PO (08:51)
[2021-10-29] MEDS: guaiFENesin DM 600/30 1 TAB TAB.ER.12H PO (08:51)
[2021-10-29] MEDS: Levothyroxine Sodium 75 MCG TABLET PO (08:51)
[2021-10-29] MEDS: allopurinoL 100 MG TABLET 50 MG PO (08:51)
--- NOTE | 2021-10-29 11:14 | MHC.SLORD ---
Speech Language Pathology Order Status: Attempted to see PT this a.m. Nursing reported that PT was doing poorly this a.m. Pt noted to be SOB, responding nonverbally to y/n questions. Pt declined taking anythin PO w/ spice miller this a.m. and not appropriate of PO trials. Pt is now pending discharge to hospice placement.
--- NOTE | 2021-10-29 13:41 | MHC.CM.PN ---
[facility] WILL HAVE BED DELIVERED BETWEEN [phone] ON 10/30/21. PLAN WILL BE TO AMBULANCE TRANSFER FOR 100 TO HOME. CASE MANAGEMENT FOLLOWING FOR ANY CHANGES TO DC PLAN.
--- NOTE | 2021-10-29 14:28 | HO.PM.IMPN ---
Subjective Subjective Date of Service: 10/29/21 Interval History: seems more lethargic and Week, increased oxygen supplement overnight still having significant hoarseness a voice looks weak overall Decreased p.o. intake in general No reported other overnight events. Systemic review: No fever, chills but reported increase weakness overall No chest pain, palpitation still having dyspnea, coughing and feeling of wheezes No abdominal pain, nausea or vomiting No urinary symptoms No any rash or wounds Physical Exam Vital Signs: Vital Signs: Last Vital Signs Temp 99.3 F 10/29/21 12:00 Pulse 88 10/29/21 12:00 Resp 20 10/29/21 12:00 BP 128/64 10/29/21 12:00 Pulse Ox 93 10/29/21 12:00 Oxygen Flow Rate 4 10/15/21 13:12 BMI result Body Mass Index 21.4 Const: Other: Constitutional : lethargic, weak, in mild respiratory distress Neck : Normal inspection, Supple, increased soreness of voice Cardiovascular : RRR, no JVP, trace lower extremity edema Respiratory : decreased bilateral air entry, no crackles, bilateral scattered wheezes , on oxygen supplement Gastrointestinal: soft, lax, Normal bowel sounds, Non tender Skin : Warm, Dry Neurological : Alert with stimulation, No focal deficit , CN 2-12 within normal Objective Data Active Medications Acetaminophen (Acetaminophen 325 Mg Tablet) 650 mg PO Q6H PRN PRN Reason: Pain, Mild (Pain Scale 1-3) Albuterol/Ipratropium (Albuterol/Iprat 2.5/0.5mg 3 Ml Ampul.Neb) 3 ml INHALE RQ4H WHILE AWAKE [facility] Last Admin: 10/29/21 11:35 Dose: 3 ml Documented by: MJ Allopurinol (Allopurinol 100 Mg Tablet) 50 mg PO DAILY [facility] Last Admin: 10/29/21 08:51 Dose: 50 mg Documented by: YOANDY Amiodarone HCl (Amiodarone Hcl 200 Mg Tablet) 100 mg PO DAILY [facility] Last Admin: 10/29/21 08:50 Dose: 100 mg Documented by: YOANDY Atorvastatin Calcium (Atorvastatin Calcium 20 Mg Tablet) 20 mg PO BEDTIME [facility] Last Admin: 10/28/21 21:26 Dose: 20 mg Documented by: ERIN Benzocaine (Throat Lozenge, Medicated Lozenge) 1 lozenge MUCOUS MEM Q4H PRN PRN Reason: Sore Throat Last Admin: 10/27/21 09:05 Dose: 1 lozenge Documented by: COTEMA Bisacodyl (Bisacodyl 10 Mg Supp.Rect) 10 mg [place] DAILY [facility] Last Admin: 10/29/21 08:51 Dose: Not Given Documented by: YOANDY Non-Admin Reason: pt moved bowels last night Docusate Sodium (Docusate Sodium 100 Mg Capsule) 100 mg PO BID PRN PRN Reason: Constipation Fluticasone/Vilanterol (Fluticasone/Vilanterol 200/25 Blst.W.Dev) 1 puff INHALE RDAILY [facility] Last Admin: 10/29/21 08:25 Dose: 1 puff Documented by: MJ Furosemide (Furosemide 40 Mg Tablet) 40 mg PO BID [facility]; Protocol Last Admin: 10/24/21 21:50 Dose: Not Given Documented by: MANISHA Non-Admin Reason: sys BP 90s, held as per Casie Ritter Guaifenesin/Dextromethorphan (Guaifenesin Dm 600/30 1 Tab Tab.Er.12h) 1 tab PO Q12H [facility] Last Admin: 10/29/21 08:51 Dose: 1 tab Documented by: YOANDY Levothyroxine Sodium (Levothyroxine Sodium 75 Mcg Tablet) 75 mcg PO DAILY [facility] Last Admin: 10/29/21 08:51 Dose: 75 mcg Documented by: YOANDY Magnesium Oxide (Magnesium Oxide 400 Mg Tablet) 400 mg PO BID [facility] Last Admin: 10/29/21 08:51 Dose: 400 mg Documented by: YOANDY Methylprednisolone Sodium Succinate (Methylprednisolone Sod Succ 40 Mg/Ml Vial) 40 mg IVPUSH Q12H [facility] Last Admin: 10/29/21 08:50 Dose: 40 mg Documented by: YOANDY Mirtazapine (Mirtazapine 15 Mg Tablet) 15 mg PO BEDTIME [facility] Last Admin: 10/28/21 21:26 Dose: 15 mg Documented by: ERIN Omeprazole (Omeprazole 40 Mg Capsule.) 40 mg PO BID [facility] Last Admin: 10/29/21 08:50 Dose: 40 mg Documented by: YOANDY Ondansetron HCl (Ondansetron Hcl 4 Mg/2 Ml Vial) 4 mg IVPUSH Q8H PRN PRN Reason: Nausea and Vomiting Pharmacy Consult (Consult Rx Vancomycin Dosing) 1 each MISCELLANE DAILY PRN PRN Reason: Consult order Sodium Chloride (0.9 % Sodium Chloride Flush 3 Ml Syringe) 3 ml IVFLUSH QSHIFT [facility] Last Admin: 10/29/21 08:50 Dose: 3 ml Documented by: DABA Warfarin Sodium (Warfarin Sodium 2 Mg Tablet) 2 mg PO DAILY@1800 [facility] Last Admin: 10/26/21 18:25 Dose: 2 mg Documented by: COTEMA Labs CBC & Chem 7: 10/25/21 04:50 10/29/21 05:44 Labs: Laboratory Results - last 24 hr 10/28/21 10/29/21 10/29/21 14:54 05:44 05:44 PT 49.8 H INR 4.2 H Anion Gap 11 L 11 L Estim Creat Clear Calc 43.9 45.6 Estimated GFR > 60 > 60 Random Glucose 209 H D 146 H Calcium 8.2 L 8.1 L Assessment and Plan (1) Acute on chronic respiratory failure with hypoxemia: Status: Acute (2) Acute metabolic encephalopathy: Status: Acute (3) Hypernatremia: Status: Acute (4) Acute exacerbation of chronic obstructive pulmonary disease: Status: Acute Plan 86M presented with shortness of breath and wheezing. metabolic encephalopathy 2/2 Hypernatremia Secondary to decreased oral intake, dehydration Sodium of 146 this morning continue replacement with D5W Repeat BMP sepsis , resolved acute on chronic hypoxic respiratory failure 2\2 acute copd decopmensation due to human metapneumovirus worsening over the last few days Repeat CXR showing worsened left lower lobe infiltrate continue steroids, bronchodilators, wean o2 as tolerated (baseline 2L) discussed with family, considering hospice at home. aspiration pnuemonia finished 1 week treatment with IV antibiotics Pulmonology recommended to doxycycline swallowing problem decreased oral intake Evaluated by speech team Aspiration precaution Continue with modified diet NDD3 with nectar thick fluids As tolerated hyperkalemia resolved Repeat BMP seizure had 1 episode of seizure, no recurrence during hospital stay eeg negative Neurology input appreciated,no AED paroxysmal afib amio, coumadin, monitor inr hld statin gerd ppi hypothyroid synthroid reason for continued hospitalization: patient still on active treatment per family request for hypoxic respiratory failure in the hospital with plan for home hospice pending discharge planning Quality Stroke Does the patient have a stroke diagnosis?: No VTE Prior VTE?: No VTE Risk Level:: Medical - moderate - high VTE Device Contraindication: Treatment Not Indicated VTE Drug Contraindication: N/A - Med Ordered
[2021-10-30 03:33] VITALS: BP 132/57; PULSE 75; RESP 18; TEMP 36.6; O2SAT 97
[2021-10-30 06:26] LABS: INTERNATIONAL NORM RATIO 3.4 (0.9-1.1); Prothrombin Time 39.9 SEC (9.9-13.0)
[2021-10-30 06:37] LABS: Anion Gap 12 (12-20); Blood Urea Nitrogen 53 mg/dL (9-16); Calcium 8.3 mg/dL (8.4-10.2); Carbon Dioxide 32 mmol/L (22-29); Chloride 112 mmol/L (96-108); Creatinine Clr Calc Pharmacy 47.3; Estimated Glomerular Filt Rate > 60; Glucose Random 116 mg/dL (60-115); Potassium 4.3 mmol/L (3.3-5.1); Sodium 153 mmol/L (135-145)
[2021-10-30 07:45] VITALS: BP 139/65; PULSE 75; RESP 19; TEMP 37.2; O2SAT 97
[2021-10-30 08:24] VITALS: PULSE 72; RESP 16; O2SAT 94
[2021-10-30] MEDS: Albuterol/Iprat 2.5/0.5MG 3 ML AMPUL.NEB INHALE (08:24)
--- NOTE | 2021-10-30 08:32 | P.CDIC_ITS ---
CDI Concurrent Query Documentation Clarification: PHYSICIAN'S DOCUMENTATION REQUEST Date of Query: 10/30/21 0832 Patient Name: Antoine Hernandez Admit Date: 10/15/21 Dear Doctor, A review of the medical record indicates additional documentation may be indicated. Please review below and update the documentation accordingly. Clinical Indicators: Risk Factors/Clinical Indicators/Treatments Wound care 10/29 notes pressure injury Stage II coccyx. foam/CDI Nutrition notes 10/28 - Stage II wound to coccyx. adding Ensure TID to promote wound healing. Based on the above, could you please provide, in the Progress Notes, further information regarding the ulcer/wound: * If a pressure ulcer, please also include the stage* of the ulcer: * Stage 1 - Skin intact, non-blanchable redness * Stage 2 - Partial thickness loss of dermis, includes intact or open blister * Stage 3 - Full thickness tissue not including bone, tendon, or muscle * Stage 4 - Full thickness tissue loss, including exposed bones, tendon, or muscle * Other * Unable to determine *Source: National Pressure Ulcer Advisory Panel (NPUAP) Use of terms such as suspected, likely, concern for, or probable (associated with a specific diagnosis that is being evaluated, monitored, or treated as if it exists) are acceptable and can be coded in the inpatient setting, when documented at the time of discharge. Thank you, Niurka Howard [facility], CDIS Extension: [phone] Please use your independent medical judgment in providing your response. THIS QUERY IS PART OF THE PERMANENT MEDICAL RECORD Provider Response: Other Other Diagnosis: Stage II wound to coccyx
--- NOTE | 2021-10-30 08:42 | P.CDIC_ITS ---
CDI Concurrent Query Documentation Clarification: PHYSICIAN'S DOCUMENTATION REQUEST Date of Query: 10/30/21 0843 Patient Name: Antoine Hernandez Admit Date: 10/15/21 Dear Doctor, A review of the medical record indicates additional documentation may be needed. Please review below and update the documentation accordingly. Clinical Indicators: Documentation includes the diagnosis of malnutrition. Additional clinical indica tors from the record include: Risk Factors/Clinical Indicators/Treatments Pulmonary consult 10/28 - slow recovery further complicated by protein malnutrition. Physical deconditioning, decreased oral intake, electrolyte imbalance. BMI 21.4 ASPEN Criteria* Acute Illness Chronic Illness Clinical Characteristic Non-Severe (2 or more criteria present) Severe (2 or more criteria present) Non-Severe (2 or more criteria present) Severe (2 or more criteria present) Energy Intake <75% for >7 days <=50% for >=5 days <75% for >=1 month <=75% for >=1 month Weight Loss 1 week 1 ? 2% >2% N/A N/A 1 month 5% >5% 5% >5% 3 months 7.5 % >7.5% 7.5% >7.5% 6 months N/A N/A 10% >10% 1 year N/A N/A 20% >20% Body Fat Mild Moderate Mild Severe Muscle Mass Mild Moderate Mild Severe Fluid Accumulation Mild Moderate to Severe Mild Severe Reduced Glaze Grinder Strength N/A Measurably Reduced N/A Measurably Reduced *[facility] Hospitalist, 2017 If possible, please provide in your progress notes, additional specificity regarding the severity of the malnutrition using the above information: * Mild * Moderate * Severe * Other (please specify) * Unable to determine Use of terms such as suspected, likely, concern for, or probable (associated with a specific diagnosis that is being evaluated, monitored, or treated as if it exists) are acceptable and can be coded in the inpatient setting, when documented at the time of discharge. Thank you, Niurka Howard [facility], CDIS Extension: [phone] Please use your independent medical judgment in providing your response. THIS QUERY IS PART OF THE PERMANENT MEDICAL RECORD Provider Response: Mild Protein-Calorie Malnutrition
--- NOTE | 2021-10-30 09:29 | MHC.CM.PN ---
DAUGHTER LASHNADA CALLED. SHE IS AWARE THAT PATIENT WILL TRANSFER HOME [facility]IA [facility] FOR 1100. RN, UNIT, AND MD AWARE OF PLAN. IMM 10/29 IN CHART
--- NOTE | 2021-10-30 10:48 | PM.DS ---
DS: Providers Provider Date of Service: 10/30/21 Date of admission: 10/15/21 17:51 Primary care physician: Vince Neal MD Consults: 10/15/21 17:55 Consult to Neurology Routine Consulting Provider: [facility] Reason for consultation: seizure in the ED, acute Has provider been notified: No 10/23/21 10:44 Consult to Pulmonology Routine Consulting Provider: Mora Rooney Reason for consultation: Dyspnea, COPD ex, for your kind eval DS: Diagnosis Discharge Diagnosis (1) Acute on chronic respiratory failure with hypoxemia: Status: Acute (2) Acute metabolic encephalopathy: Status: Acute (3) Hypernatremia: Status: Acute (4) Acute exacerbation of chronic obstructive pulmonary disease: Status: Acute (5) Hyperkalemia: Status: Acute (6) Viral syndrome: Status: Acute (7) Seizure: Status: Acute (8) Bronchopneumonia: Status: Acute DS: Summary Hospital Course Hospital Course: Admission note HPI 86 year old man presenting with worsening sob, worse over the last 2 days. He was recently [place] [facility] for similar. He reported increase in oxygen use, using at night now. He felt weak and had a cough. He saw his PCP and was started on steroids and an antibiotic about 10 days ago. EMS was called. In the ED, he had a seizure with loss of bladder and shaking of hims with tachycardia, hypertension. he denied hx of seizures in the past. He was stablized and during the interview stated that he felt a hot flash prior to the seizure episode. He was noted to have fever and hypotension with oxygen at 90% on 6 liters. Hospital course The patient was admitted for treatment of acute on chronic hypoxic respiratory failure secondary to COPD exacerbation evidence of bronchopneumonia believed to be a result of viral illness with metapneumovirus. The patient was treated with IV steroids, bronchodilator nebulizers and IV antibiotics of vancomycin and Zosyn for sepsis secondary to Hcap. He noticed to have a suspected seizure at that time with EEG done showing negative waves and neurology evaluation recommending no treatment for the suspected incident. No recurrence of the seizures during the hospital stay. His general condition worsened over the course of hospital stay as PE became weaker, more physically deconditioned and challenge. Evaluated by speech therapist who recommended modified diet but he could not keep up with drinking fluids so his sodium went up significantly to 150s and was treated with D5W with fair response on multiple occasions but because of decreased oral intake his sodium will increase again. During that time physically he got worse and was unable to participate much with physical therapy. Mentation fluctuated with the level of sodium most notably. Seen by geometry professor who recommended no change on therapy as his symptoms are likely related to the viral illness that add medium deteriorate this way. Meeting was done with the family and the patient to discuss goals of care with decision made to go back home with hospice. Medications adjusted at time of discharge with addition of morphine and Ativan as needed for dyspnea and anxiety. Time Spent with Patient Time attestation: Total time spent providing and/or coordinating discharge services: Discharge coordination time: Greater than 30 minutes Quality: Safe Use of Opioids Does Pt have an Active Cancer Diagnosis on the Problem List?: No Quality: Stroke Does the patient have a stroke diagnosis?: No Physical Exam Vital Signs: Vital Signs: Last Vital Signs Temp 99.0 F 10/30/21 07:45 Pulse 72 10/30/21 08:24 Resp 16 10/30/21 08:24 BP 139/65 10/30/21 07:45 Pulse Ox 97 10/30/21 07:45 Oxygen Flow Rate 4 10/15/21 13:12 BMI result Body Mass Index 21.4 Const: Other: Constitutional : lethargic, weak, in mild respiratory distress Neck : Normal inspection, Supple, increased soreness of voice Cardiovascular : RRR, no JVP, trace lower extremity edema Respiratory : decreased bilateral air entry, no crackles, bilateral scattered wheezes , on oxygen supplement Gastrointestinal: soft, lax, Normal bowel sounds, Non tender Skin : Warm, Dry Neurological : Alert with stimulation, No focal deficit , CN 2-12 within normal DS: Data Data Completed and Pending Labs on day of discharge: Laboratory Results - last 24 hr 10/30/21 10/30/21 05:59 05:59 PT 39.9 H INR 3.4 H Sodium 153 H Potassium 4.3 Chloride 112 H Carbon Dioxide 32 H Anion Gap 12 BUN 53 H Creatinine 1.03 Estim Creat Clear Calc 47.3 Estimated GFR > 60 Random Glucose 116 H Calcium 8.[address] scan - chest: Radiologist's impression: ITS Impressions Chest X-Ray 10/15/21 13:43 IMPRESSION: Bilateral bronchial wall thickening at the lung bases and probable left base bronchopneumonia. Head CT 10/15/21 16:42 IMPRESSION: -No intracranial hemorrhage, hydrocephalus, or mass effect. -Nonspecific hypodensity left parietal white matter under 1.5 cm of uncertain chronicity. This could be further assessed with MRI without and with gadolinium. -Opacified right mastoid air cells. No fluid levels or bony destructive process. Sinuses and middle ears clear. Chest CT 10/16/21 11:14 IMPRESSION: Bilateral lower lobe disease, left greater than right, which may be related to atelectasis or pneumonitis. Significant changes of emphysema seen bilaterally. Cardiomegaly with prominent atherosclerotic calcifications. Bilateral calcified pleural plaques consistent with previous asbestos exposure without pleural effusion. Diffuse osteopenia and DISH. Chest X-Ray 10/23/21 14:23 IMPRESSION: Increasing left basilar opacity consistent with ongoing increasing atelectasis/infiltrate Chest X-Ray 10/28/21 08:06 IMPRESSION: Hyperinflated lungs with increased lucency left lung likely secondary to COPD. No change in left basilar opacity from infiltrate/atelectasis Discharge Plan Discharge Patient Disposition: Hospice - Home Discharge Diagnosis: acute on chronic hypoxic respiratory failure physical deconditioning Referrals: David SANTILLAN [Outside] - 1 Week Vince Neal MD [Primary Care Provider] - 1 Week Discharge Medications: New morphine concentrate 100 mg/5 mL (20 mg/mL) solution 5 mg PO Q3H PRN (Reason: dyspnea) Qty: 15 0RF lorazepam 0.5 mg tablet 0.5 mg PO Q6H PRN (Reason: anxiety) Qty: 20 0RF Continued budesonide-formoterol [Symbicort] 160-4.5 mcg/actuation HFA aerosol inhaler 2 puff PO BID Qty: 10.2 5RF amiodarone 200 mg tablet 0.5 tab PO DAILY 0RF albuterol sulfate [Ventolin HFA] 90 mcg/actuation HFA aerosol inhaler 1 inh inhalation Q4H PRN (Reason: Wheezing) 0RF Mucinex DM 30-600 mg Tablet Extended Release 12 Hr 1 tab PO Q12H 0RF allopurinol 300 mg tablet 300 mg PO DAILY 0RF mirtazapine 15 mg tablet 15 mg PO BEDTIME 0RF levothyroxine 75 mcg tablet 75 mcg PO DAILY 0RF omeprazole 40 mg capsule,delayed release(DR/EC) 40 mg PO BID 0RF Changed ipratropium-albuterol 0.5 mg-3 mg(2.5 mg base)/3 mL solution for nebulization 3 ml inhalation QID 7 Days Qty: 0 0RF albuterol sulfate 2.5 mg /3 mL (0.083 %) solution for nebulization 2.5 mg inhalation Q6H 7 Days Qty: 0 0RF Held magnesium oxide 400 mg magnesium Tablet 400 mg PO BID 0RF Hold Instructions: Hospice care docusate sodium [Colace] 100 mg capsule 100 mg PO BID PRN (Reason: Constipation) 0RF Hold Instructions: Hospice care simvastatin 40 mg tablet 40 mg PO BEDTIME 0RF Hold Instructions: Hospice care warfarin 2.5 mg tablet 2.5 mg PO BEDTIME 0RF Hold Instructions: Resume on 11/01/21. Discontinued prednisone 10 mg tablet 40 mg PO DAILY Qty: 16 0RF Rx Instructions: part of prednisone taper; pt has two days left 10/15/21 furosemide 40 mg tablet 1 tab PO BID 0RF cefuroxime axetil 500 mg tablet 1 tab PO BID 0RF potassium chloride 20 mEq tablet,ER particles/crystals 20 meq PO DAILY 0RF Discharge Orders: Discharge Order (Routine); Ordered 10/30/21 Ordered By: Tanner Perez Diet: other Activity on Discharge: As tolerated Stand Alone Forms: Patient Portal Discharge page Care Plan Goals: Read below Health Concerns: Read below Plan of Treatment: To go home with hospice care team follow up Assessment: You were admitted to the hospital for treatment of difficulty breathing as a result of pneumonia complicating viral illness and COPD exacerbation. Treated with IV antibiotics, steroids, nebulizers with no significant improvement as your general physical condition decline. Evaluated by hospice care team who will continue to follow you at home. Discharge Date/Time: 10/30/21 11:48
--- NOTE | 2021-10-30 10:50 | MHC.SLORD ---
Speech Language Pathology Order Status: Spoke with RN- Patient not appropriate for PO trials this morning. Patient is being discharged on hospice.
--- NOTE | 2021-10-30 11:34 | MHC.CM.PN ---
PATIENT IS DC HOME WITH [facility] , DAUGHTER, FAMILY, AND UNIT AWARE IMM 10/29 IN CHART
== END 2021-10-30 11:48 | disposition hospice, home (50) | DRG 871 ==
LOC: HO.ED 17:16 → HO.EDOVER 18:03 → HO.S3 10-16 16:25
PROVIDERS: Hospitalist; Internal Medicine; Physician Assistant; Admitting Provider Nurse Practitioner Acute Care; Emergency Provider Emergency Medicine; PCP Internal Medicine; Visit Provider Student in an Organized Health Care Education/Training Program
DX: A41.9 Sepsis, unspecified organism (principal); J96.21 Acute and chronic respiratory failure with hypoxia; G93.41 Metabolic encephalopathy; J12.3 Human metapneumovirus pneumonia; J44.1 Chronic obstructive pulmonary disease with (acute) exacerbation; E87.0 Hyperosmolality and hypernatremia; E44.1 Mild protein-calorie malnutrition; E03.9 Hypothyroidism, unspecified; E78.5 Hyperlipidemia, unspecified; K21.9 Gastro-esophageal reflux disease without esophagitis; E87.6 Hypokalemia; R56.9 Unspecified convulsions; E86.0 Dehydration; L89.152 Pressure ulcer of sacral region, stage 2; Z66 Do not resuscitate; I48.0 Paroxysmal atrial fibrillation; I35.0 Nonrheumatic aortic (valve) stenosis; Z68.21 Body mass index [BMI] 21.0-21.9, adult; Z20.822 Contact with and (suspected) exposure to COVID-19; Z99.81 Dependence on supplemental oxygen; Z87.891 Personal history of nicotine dependence; Z79.01 Long term (current) use of anticoagulants; Z79.890 Hormone replacement therapy; Z79.899 Other long term (current) drug therapy
CPT/HCPCS: 0241U; 36415; 70450; 71045; 71250; 80048; 80076; 80202; 81001; 82803; 82947; 83605; 83690; 83880; 84484; 85025; 85027; 85610; 87040; 87633; 92526; 92610; 93005; 94640; 94644; 95816; 96365; 96366; 96375; 97110; 97162; 97530; 99285; 99497; J0295; J2543; J2920; J2930; J3370; J3475